=== PATIENT | female | born 2005 | race Caucasian/White ===

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

== ENCOUNTER 2024-01-09 09:39 | Emergency (ER) | payer OTHER, SELFPAY ==
--- NOTE | ~2024-01-09 | XR_ITS ---
EXAMINATION: XR CHEST CLINICAL INFORMATION: Productive cough 2 weeks COMPARISON: Chest radiograph from 09/24/2008 TECHNIQUE: 2 views of the chest were obtained. FINDINGS: Curvilinear radiopacity along the right lung base may reflect atelectasis versus resolving infectious/inflammatory etiology. No pneumothorax. Trachea is midline. Cardiomediastinal silhouette is not enlarged. No large pleural effusion. Osseous structures are intact. Soft tissues are unremarkable. XR/XR chest 2V IMPRESSION: Curvilinear radiopacity along the right lung base may reflect atelectasis versus resolving infectious/inflammatory etiology. Electronically signed by: Elysia Perez MD 01/09/2024 11:55 AM EDT
[2024-01-09 09:48] VITALS: BP 118/70; PULSE 84; RESP 17; TEMP 36.7; O2SAT 97; BMI 34.7
--- NOTE | 2024-01-09 09:50 | ED.GENADULT ---
HPI - General Adult General Chief complaint: Asthma Stated complaint: SOB Time Seen by Provider: 01/09/24 09:49 Source: patient Mode of arrival: ambulatory Limitations: no limitations History of Present Illness ED Provider: migue WYATT narrative: Patient is a 18-year-old female with history of asthma presenting to the emergency department with complaint of cough productive of yellow sputum, shortness of breath as well as right ear pain for the past 2 weeks. She was already seen, tested for viral illnesses which she was never informed of results of, placed on a course of prednisone and given an albuterol inhaler. Reports she is feeling symptoms have improved but complains of ongoing cough as well as ear pain. Has sore throat initially which has since resolved. complaint: cough, ear pain Onset (ago): week(s) Treatments prior to arrival: other Related Data Previous Rx's ?Medication ?Instructions ?Recorded ibuprofen 600 mg tablet 600 mg PO Q8H PRN pain #10 tabs 01/15/22 ibuprofen 600 mg tablet 600 mg PO Q8H PRN pain #20 tabs 10/27/22 amoxicillin 875 mg-potassium 1 tab PO BID #20 tabs 07/20/23 clavulanate 125 mg tablet doxycycline hyclate 100 mg capsule 100 mg PO BID #10 caps 01/09/24 Allergies Allergy/AdvReac Type Severity Reaction Status Date / Time No Known Allergies Allergy Verified 01/09/24 09:50 Review of Systems Review of Systems: As per HPI. Yes all other systems are reviewed and are negative Constitutional: Constitutional: Reports as per HPI [facility] Social History Social History Advance Directives: No Advance Directives Information Provided: Yes Physical Exam ED Vital Signs: Vital Signs - 24 hr 01/09/24 09:48 Temperature 98.0 F Pulse Rate 84 Respiratory Rate 17 Blood Pressure 118/70 Pulse Oximetry 97 Oxygen Delivery Method Room Air BMI result Body Mass Index 34.7 Vital signs have been reviewed and appear to be correct. Blood pressure normal. Heart rate normal. Respiratory rate normal. Temperature normal. Oxygen saturation normal. Const General: cooperative, healthy appearing and no acute distress Orientation/consciousness: oriented to person, oriented to place, oriented to time and patient oriented x3 Limitations: no limitations HENMT Head: Yes normocephalic and Yes atraumatic Ears: external ears normal, right TM abnormal (unable to visualize TM due to cerumen impaction), TM normal on the left, EAC's normal, mastoids normal bilaterally and no periauricular adenopathy General nose exam: Normal external nose present Face and sinus: Yes face symmetric Mouth: oropharynx normal and moist mucous membranes Throat: Yes posterior oropharynx normal and Yes uvula midline Eyes Pupils: Equal, round and reactive pupils present Neck Neck: Yes normal visual inspection and Yes supple Resp Effort & Inspection: normal respiratory effort and able to speak in complete sentences Auscultation: clear to auscultation bilaterally Cardio Rate: regular rate Rhythm: regular rhythm Heart sounds: S1 normal heart sound present and S2 normal heart sound present GI Palpation (GI): Soft to palpation and nontender Auscultation: normoactive bowel sounds General: Yes no CVA tenderness Back/Spine/Pelvis Back: no CVA tenderness Skin General skin exam: elasticity normal and turgor normal Neuro General: oriented to person, oriented to place, oriented to time, patient oriented x3, moves all extremities, no focal motor deficits and CN's II-XI intact bilaterally Cranial nerves: Yes Equal, round and reactive pupils present Cognition (Neuro): normal cognition Extrem General: Yes full ROM, Yes no pedal edema and Yes no calf tenderness Psych Mental Status: mental status grossly normal Affect: normal affect Thought process: Normal thought process present Medical Decision Making Medical Decision Making MDM Narrative: Patient is a 18-year-old female with history of asthma presenting to the emergency department with complaint of cough productive of yellow sputum, shortness of breath as well as right ear pain for the past 2 weeks. On exam patient is awake, A+Ox3, VS WNL, afebrile, normal neurological exam without focal deficits, physical exam findings as above. Given reported symptoms and physical exam findings, initial differential includes viral illness, otitis media, bronchitis, pneumonia, asthma exacerbation. Viral serology negative. Chest x-ray notable for right lung base opacity. My interpretation is in agreement with the radiologist's interpretation. Unable to visualize right TM on exam, however patient complaining of throbbing pain. Will treat patient with course of doxycycline which will cover both her ear as well as likely resolving respiratory infection. Return precautions discussed. Instructed patient to follow up with PCP. Patient verbalized understanding of and agreement with plan. Differential Diagnosis Differential Diagnoses: The differential diagnosis associated with the presentation includes Lab Data [facility] Lab Attestation statement: I reviewed the patient's lab results. As per [facility]. Labs: Lab Results 01/09/24 Range/Units 09:54 Influenza Type A (PCR) NEGATIVE (Negative) Influenza Type B (PCR) NEGATIVE (Negative) RSV RNA Qual (PCR) NEGATIVE (Negative) SARS-CoV-2 RNA (RT-PCR) NEGATIVE (Negative) Independent Interpretation I performed an independent interpretation of an: Plain X-Ray Interpretation: Chest x-ray notable for right lung base opacity. Radiology Impression Discussion of test interpretation with radiology: I have reviewed the radiologist's reading. Radiologist Impression: XR/XR chest 2V IMPRESSION: Curvilinear radiopacity along the right lung base may reflect atelectasis versus resolving infectious/inflammatory etiology. External Record Review External record reviewed: Inpatient record, Office record and Outpatient record Prescription Management I considered prescription management with: Antibiotic Discharge Plan Discharge Clinical Impression: Otitis media, Bronchitis Patient Disposition: Home, Self-Care Instructions: Ear Infection (ED), Acute Bronchitis (ED) Additional Instructions: You were evaluated in the emergency department today for cough and ear pain. Your evaluation suggests that your pain is due to an ear infection and your chest x-ray showed a resolving infection. You are being treated with 1 antibiotic which will cover both infections. Please take your prescribed antibiotics as directed for the full course of the medication. Please follow up with your primary care provider this week. Return to the emergency department if you experience hearing loss, discharge from your ear, headaches, fevers, difficulty breathing, recurrent vomiting, or any other concerning symptoms. Prescriptions: New doxycycline hyclate 100 mg capsule 100 mg PO BID Qty: 10 0RF No Action ibuprofen 600 mg tablet 600 mg PO Q8H PRN (Reason: pain) Qty: 10 0RF ibuprofen 600 mg tablet 600 mg PO Q8H PRN (Reason: pain) Qty: 20 0RF amoxicillin-pot clavulanate 875-125 mg tablet 1 tab PO BID Qty: 20 0RF Print Language: [place]
[2024-01-09 10:48] LABS: Influenza A PCR NEGATIVE (Negative); Influenza B PCR NEGATIVE (Negative); Resp Syncy Virus RNA Qual PCR NEGATIVE (Negative); SARS COV2 PCR INHOUSE NEGATIVE (Negative)
[2024-01-09 12:31] VITALS: BP 118/70; PULSE 84; RESP 17; TEMP 36.7; O2SAT 97
== END 2024-01-09 12:35 | disposition home or self-care (01) ==
PROVIDERS: Registered Nurse Emergency; Emergency Provider Emergency Medicine
DX: J40 Bronchitis, not specified as acute or chronic (principal); H66.91 Otitis media, unspecified, right ear; R05.9 Cough, unspecified; Z03.818 Encounter for observation for suspected exposure to other biological agents ruled out
CPT/HCPCS: 0241U; 71046; 99282; 99283

== ENCOUNTER 2025-01-09 00:57 | Emergency (ER) | payer OTHER, SELFPAY ==
--- NOTE | 2025-01-09 | ECG_ITS ---
Test Reason : CP Blood Pressure : */* mmHG Vent. Rate : 84 BPM Atrial Rate : 84 BPM P-R Int : 138 ms QRS Dur : 76 ms QT Int : 366 ms P-R-T Axes : 43 18 5 degrees QTcB Int : 432 ms Normal sinus rhythm Normal ECG No previous ECGs available Referred By: Generic ED Physician Electronically Signed By: BENNY MARTINEZ MD
--- NOTE | ~2025-01-09 | XR_ITS ---
CLINICAL HISTORY: chest px 1 view chest x-ray Comparison: CR/SR - XR CHEST 2 VIEWS - 01/09/24 11:03 EDT Findings: The lungs are clear. Previously described right basilar curvilinear opacity is not visualized on this single AP view exam. Heart size is normal. No acute fracture. IMPRESSION: 1. No acute findings. Previously described right basilar curvilinear opacity is not visualized on this single AP view exam. This document has been electronically signed by: Cassidy Daniel MD on 01/09/2025 01:50:33
[2025-01-09 01:03] VITALS: PULSE 92; RESP 16; TEMP 36.4; O2SAT 97; BMI 41.6
--- OUTSIDE RECORDS SUMMARY | 2025-01-09 01:11 | XMS_ITS | Clinical Summary ---
Author Organization 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 Active Social History Tobacco Use Types Packs/Day Years Used Date Smoking Tobacco: Never Assessed Education Answer Date Recorded Are you interested in more education? Not on cami e 08/25/2022 Are you concerned about learning? Not on file 08/25/2022 No 08/25/2022 No 08/25/2022 Digital Access Answer Date Recorded No 09/25/2022 No 09/25/2022 Reliable internet access at home? Not on file 09/25/2022 Device with a working camera? Not on file Comments No Sex and Gender Information Value Date Recorded Sex Assigned at Female 09/20/2020 8:34 PM EDT Legal Sex Female 7:32 PM EDT Gender Identity Female 09/20/2020 8:34 PM EDT Sexual Orientation Straight 09/20/2020 8: 34 PM EDT Last Filed Vital Signs Vital Sign Reading Time Taken Comments Blood Pressure 115/76 09/21/2020 12:18 AM EDT Pulse 80 09/21/2020 12:18 AM EDT Temperature 36.5 C (97.7 F) 09/21/2020 12:18 AM EDT Respiratory Rate 14 09/21/2020 12:18 AM EDT Oxygen Saturation 96% 09/21/2020 12:18 AM EDT Inhaled Oxygen Concentration - - Weight 77.8 kg (171 lb 8 oz) 09/20/2020 8:29 PM EDT Height 157.5 cm (5' 2 ) 09/20/2020 8:29 PM EDT Body Mass Index 31.37 09/20/2020 8:29 PM EDT Plan of Treatment Not on file Medical Devices Not on file Insurance [facility] [place] [place] [address] ACO [facility] [facility] [facility] Care Teams Coffee Blender Relationship Specialty Start Date End Date Pcp, Unknown PCP - General 09/20/20 Additional Source Comments The information contained in this document represents components of the legal health record. It is not the complete legal health record.[facility]
--- OUTSIDE RECORDS SUMMARY | 2025-01-09 01:11 | XMS_ITS | Clinical Summary ---
Author Organization [facility] [address] [place] [address] [place] [phone] Phone Care Team Providers Care Aquatics Instructor Name Role Phone Palak Goldman MD Primary Care Provider [phone] Allergies No known active allergies Medications Ventolin HFA 90 mcg/actuation inhaler Inhale 2 puffs by mouth 4 (four) times a day. Active vitamin iron fum-folic acid 27-0.8 mg per tabletIndication s:Encounter for supervision of normal first in first trimester Take 1 tablet by mouth 1 (one) time each day. 90 each 3 09/23/2024 6 Active aspirin 81 mg EC tablet Take 1 tablet (81 mg total) by mouth 1 (one) time each day. 60 tablet 3 09/29/2024 6 Active Active Problems Problem Noted Date Diagnosed Date Carrier of spinal muscular atrophy 10/05/2024 Overview (10/05/2024): Horizon 14 result INCREASED CARRIER RISK for Spinal Muscular Atrophy: Two copies of the SMN1 gene detected .Positive for the g.[id number]>G variant. Based on this individual's reported ethnicity, the individual has a 1 in 140 risk To be a silent (2+0) carrier for SMA. If this individual's partner is a carrier for Spinal Muscular Atrophy, they may be at increased risk to have a child with this condition. Carrier screening for this individual's partner is suggested. Order for partner Patric Sanchez placed in [employer]'s website 10/05/24 Assessment & Plan (11/17/2024 2:34 PM EDT): FOB- no insurance currently. Forms completed and kit provided, can be completed once he has his insurance, Encounter for supervision of normal first in first trimester 09/23/2024 Overview (11/21/2024): 1. [facility] site: [facility]: [address] [facility], [place] [address] ([phone]) 2. Delivery site: [facility] 3. Mobile Mommas: No 4. Dating criteria: LMP - changed based on 09/25/34 u/s (S<D). EDC now 05/04/25 5. Blood type: A-Positive 6. Genetic screening: Date: Result: Panorama: Low risk panorama, XX Horizon: INCREASED CARRIER RISK for Spinal Muscular Atrophy: Two copies of the SMN1 gene detected .Positive for the g.29397M>G variant. Based on this individual's reported ethnicity, the individual has a 1 in 140 risk To be a silent (2+0) carrier for SMA. If this individual's partner is a carrier for Spinal Muscular Atrophy, they may be at increased risk to have a child with this condition. Carrier screening for this individual's partner is suggested. Nuchal: Scheduled Survey: MSAFP: screen negative 6. GBS: Date: 7. FOB name: Patric Rosaisiah 8. Plans A. Epidural or other pain management - no B. Labor support identified - Patric Pereira C. Tdap - Date: Flu - Date: D. Breast or Bottle feed: E. Baby's name - F. Circumcision - no 9. Hospital Course: Maternal obesity, antepartum 09/23/2024 Overview (12/22/2024): HgbA1C and 1 hour GTT at initial labs ASA 162mg at 12 weeks until delivery Detailed anatomy ultrasound Repeat GTT 24-28 weeks if early is normal Pre-preg BMI 35-39.9: NST weekly at 37 weeks Pre-preg BMI >40: NST weekly at 34 weeks Pre-preg BMI >45: NST weekly at 32 weeks Growth US at 32 and 36 weeks for BMI >40 BMI of 50 by 28wks transfer to [facility] DVT prophylaxis- Lovenox if CS and BMI >35 Assessment & Plan (11/17/2024 2:35 PM EDT): Taking pnv and baby asa as prescribed. History of asthma 09/23/2024 Estimated Date of Delivery Comme nts Yes 05/04/2025 Based on Ultraso und Encounters Date Type Department Care Team Description 12/18/2024 8:00 AM EDT Ancillary Procedure Maternal Medicine - [place] [address] [place] [address] Encounter for anatomic survey; Obesity affecting in second trimester; Other obesity due to excess calories affecting in third trimester; Encounter for screening for malformation; Other obesity due to excess calories affecting in second trimester; Encounter for screening for cervical length 12/17/2024 10:15 AM EDT Routine [facility] [place] [address] [facility] [place] [address] Alize Bowen CNM Second trimester (Primary Dx); Maternal obesity, antepartum; 20 weeks gestation of 11/17/2024 2:00 PM EDT Routine Obst[facility]s [facility]cology [facility] [address] [facility] [place] [address] Alize Bowen CNM 16 weeks gestation of (Primary Dx); Second trimester ; Carrier of spinal muscular atrophy; Maternal obesity, antepartum 10/23/2024 10:00 AM EDT Ancillary Procedure Maternal Medicine - [address] [address] Encounter for screening for nuchal translucency; Encounter for screening for malformations; Encounter for supervision of normal first in first trimester; Obesity affecting in first trimester; Other obesity due to excess calories affecting in first trimester from Last 3 Months Surgical History Surgery Date Site/Laterality Comments TONSILLECTOMY at 7 yo ADENOIDECTOMY 04/29/2012 - 04/28/2013 TYMPANOSTOMY TUBE PLACEMENT 04/29/2024 - 04/28/2025 Simi collins Medical History Medical History Date Comments Asthma Family History Medical History Relation Name Comments Asthma Father Diabetes type II Half-Brother 1 Joaquin No Known Problems Half-Brother 2 Jami No Known Problems Half-Brother 3 Reymundo No Known Problems Half-Sister 1 Alexandru No Known Problems Half-Sister 2 Mingo No Known Problems Half-Sister 3 Charbel No Known Problems Half-Sister 4 Gayle Asthma Half-Sister 5 Navea Kidney disease Maternal Grandfather No Known Problems Maternal Grandmother No Known Problems Mother Arthritis Paternal Grandfather Arthritis Paternal Grandmother Relation Name Status Comments Father Alive Half-Brother 1 Joaquin Alive Half-Brother 2 Jami Alive Half-Brother 3 Reymundo Alive Half-Sister 1 Alexandru Alive Half-Sister 2 Mingo Alive Half-Sister 3 Mayura Alive Half-Sister 4 Gayle Alive Half-Sister 5 Navea Alive Maternal Grandfather Maternal Grandmother Alive Mother Alive Paternal Grandfather Alive Paternal Grandmother Alive Social History Tobacco Use Types Packs/Day Years Used Date Smoking Tobacco: Never Smokeless Tobacco: Never Alcohol Use Standard Drinks/Week Comments Never 0 (1 standard drink = 0.6 oz pur e alcohol) Estimated Date of Delivery Comme nts Yes 05/04/2025 Based on Ultraso und Sex and Gender Information Value Date Recorded Sex Assigned at Not on file Legal Sex Female 10:47 AM EDT Gender Identity Not on file Sexual Orientation Not on file Obstetrics History Para Term AB IAB SAB Ectopic Multiple Livin g Live Births 1 0 0 0 0 0 0 0 Date Outcome GA Total Labor Labor/2nd/3rd Weight Sex Type Anes PTL Doris A1 A5 Name Clin Current Summary Episode Dates Number of Fetuses Estimated Date of Delivery 09/23/2024 - Present (01/09/2025) 05/04/2025 (set by Vanessa Vallejo RN on 09/25/2024 based on Ultrasound on 09/25/2024) Dating Summary Based On ISAURA GA Diff Last Menstrual Period on 06/28/2024 (Exact Date) 04/04/2025 +4w2d Ultrasound on 09/25/2024 05/04/2025 Working GA:8w3d Overview and Plan Delivery Plans Post-Delivery Plans Planned delivery method:Vaginal Feeding intentions:Exclusive Planned anesthesia:None Circumcision req uested:No Acceptable blood products:All Planned bi rth control:None Vitals Pregravid Weight Height TWG (As of 01/09/2025) Pregrav id BMI 98 kg (216 lb) 1.575 m (62 ) 1.452 kg (3 lb 3.2 oz) 39 .50 Notes Progress Notes - Routine Pre boby - 12/17/2024 - GA:20w2d 12/17/2024 - 20w2d - Alize Bowen CNM OB Visit: Vitals BP: 116/70 Weight: 99.4 kg Assessment Heart Rate: 150 Fundal Height (cm): 20 cm Movement: Present Vaginal Drainage Leaking Fluid: No 19 y.o. old female at 20w2d. Here with FOB today. Doing well. + FM. No LOF/VB/cramping. Her only new concern is intermittent low back pain , has been doing stretching to help relieve discomfort. FAS ted on tomorrow. Otherwise c/b obesity , taking pnv and asa. Her BP is reviewed and is Normal. Aneuploidy screening reviewed; it is Normal. MSAFP up to date. Negative. She does not require a urine drug screen. Pt is counseled on normal second trimester changes, comfort measures, including reasons to call triage. Problem List reviewed and updated. RTO 4 weeks or prn ;. Alize Bowen CNM on 12/17/2024 at 10:54 AM EDT Progress Notes - Routine Pre boby - 11/17/2024 - GA:16w0d 11/17/2024 - w0d - Vanessa Vallejo RN Order form and test kit for partner Horizon testing given to pt/partner. 11/17/2024 - w0d - Alize Bowen CNM OB Visit: Vitals BP: 110/70 Weight: 97.3 kg (214 lb 9.6 oz) Assessment Heart Rate: 145 Fundal Height (cm): 16 cm Vaginal Drainage Leaking Fluid: No 19 y.o. old female at 16w0d. Doing well. No flutterin FM. No LOF/VB/cramping. Her only new concern is none. Otherwise healthy . Her BP is reviewed and is Normal. Aneuploidy screening reviewed; it is Normal. MSAFP ordered. She does not require a urine drug screen. Signs and symptoms of labor reviewed including reasons to call triage. Problem List reviewed and updated. RTO 4 weeks or sooner prn . 16 weeks gestation of (Primary) - Alpha fetoprotein, maternal; Future Second trimester - Alpha fetoprotein, maternal; Future Carrier of spinal muscular atrophy Assessment & Plan: FOB- no insurance currently. Forms completed and kit provided, can be completed once he has his insurance, Maternal obesity, antepartum Assessment & Plan: Taking pnv and baby asa as prescribed. Alize Bowen CNM on 11/17/2024 at 2:35 PM EDT Progress Notes - Initial Pre boby - 09/29/2024 - GA:9w0d 09/29/2024 - 9w0d - Leilani Ritter CNM Subjective Agusto Amaro is a 19 y.o. at 9w0d with a working estimated date of delivery of 05/04/2025, by Ultrasound who presents for an initial visit. This is unplanned.they have been together 4 years, and they are happy about it. HPI OB History Para Term AB Living 1 0 0 0 0 0 SAB IAB Ectopic Multiple Live Births 0 0 0 0 0 # Outcome Date GA Lbr Emir/2nd Weight Sex Type Anes PTL Lv 1 Current Gynecology History Past Medical History: Diagnosis Date Asthma Past Surgical History: Procedure Laterality Date ADENOIDECTOMY 2013 TONSILLECTOMY at 7 yo TYMPANOSTOMY TUBE PLACEMENT Right 2024 Family History Problem Relation Name Age of Onset No Known Problems Mother Asthma Father No Known Problems Maternal Grandmother Kidney disease Maternal Grandfather Arthritis Paternal Grandmother Arthritis Paternal Grandfather Diabetes type II Half-Brother Joaquin Kline No Known Problems Half-Brother Jami No Known Problems Half-Brother Reymundo No Known Problems Half-Sister Alexandru No Known Problems Half-Sister Mingo No Known Problems Half-Sister Charbel No Known Problems Half-Sister Gayle Asthma Half-Sister Joel Social History Socioeconomic History Marital status: Single Spouse name: Not on file Number of children: Not on file Years of education: Not on file Highest education level: Not on file Occupational History Not on file Tobacco Use Smoking status: Never Smokeless tobacco: Never Vaping Use Vaping status: Never Used Substance and Sexual Activity Alcohol use: Never Drug use: Never Sexual activity: Yes Partners: Male Comment: Patric 4yrs haydenther Other Topics Concern Not on file Social History Narrative Planned :Yes FOB name/age/phone #: Patric Pereira, 05/22/2004 ph [phone] [email or web address] Lives with: Patric Other Children: Support system in place:No Pets:Yes , 2 cats and 2 dogs, Patric is changing the litter 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 60 tablet 3 vitamin iron fum-folic acid 27-0.8 mg per tablet Take 1 tablet by mouth 1 (one) time each day. 90 each 3 Ventolin HFA 90 mcg/actuation inhaler Inhale 2 puffs by mouth 4 (four) times a day. No current facility-administered medications for this visit. No Known Allergies The following portions of the patient's chart were reviewed in this encounter and updated as appropriate: Allergies Meds Review of Systems Objective Physical Exam Weight: 97.5 kg (215 lb) Expected Total Weight Gain: 5 kg (11 lb)-9 kg (19 lb) Pregravid BMI: 39.50 BP: 104/72 HEENT: reactive Thyroid: normal Lymphatic: normal Neurological : A&Ox3 Skin: clear Cardiovascular: regular rhythm Pulmonary: CTA Breast: flat nipples Abdominal: gravid, obesity Musculoskeletal: normal Vulva findings: Vagina findings: Cervix findings: Uterus size weeks: 9w Adnexa findings: Rectum findings: Ischial spines findings: Sacrum shape: Subpubic arch width: Diagonal conjugate assessed: Pelvic type: Assessment/Plan 9 weeks gestation of (Primary) Encounter for supervision of normal first in first trimester - Chlamydia trachomatis and Neisseria gonorrhoeae molecular study Other orders - aspirin 81 mg EC tablet; Take 1 tablet (81 mg total) by mouth 1 (one) time each day. Dispense: 60 tablet; Refill: 3 Progress Notes - Ancillary P rocedure - 09/25/2024 - GA:8w3d 09/25/2024 - 8w3d - Vanessa Vallejo RN Dating changed based on ultrasound today. Size less than dates. EDC now 05/04/2025. Progress Notes - Clinical Diaz pport - 09/23/2024 - GA:8w1d 09/23/2024 - 8w1d - Honey Galvan RN Agusto Amaro is a 19 y.o. old female at 12w3d. This is Planned. The patient feels happy about the . The FOB is supportive and happy. Patient's last menstrual period was Patient's last menstrual period was 06/28/2024 (exact date). (exact date)., which would make her currently 12w3d with an Estimated Date of Delivery: None noted.. She is certain of her date. 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 No Hypertension? No Heart disease, Mitral valve Prolapse, or Rheumatic fever? No An Autoimmune disease such as Lupus or Rheumatoid Arthritis? No Epilepsy, Seizures, or Spells? No Migraine Headaches? Yes, with aura Stroke or loss of function or sensation? No Additional Questions: Have you ever been treated for anxiety and/or depression? No Are you having problems with crying spells or loss of self-esteem? No Have you ever required psychiatric care? No Have you ever had hepatitis, liver disease or jaundice? No Have you ever been treated for blood clots in your veins, deep venous thrombosis, inflammation in the veins, thrombosis, phlebitis, pulmonary embolism or varicosities? No Have you had excessive bleeding after surgery or dental work? No Do you bleed more than other women after a cut or scratch? No Do you have a history of anemia? No Have you ever had Thyroid problems or taken Thyroid medications? No Do you have any other Endocrine Problems (ie. PCOS)? No Have you ever been in a major accident or suffered serious trauma? No Within the last year, has anyone hit, slapped, kicked or otherwise hurt you? No In the last year, has anyone forced you to have sex when you didn't want to? No Do you feel safe at home? Yes Have you ever received a blood transfusion? No Would you refuse a blood transfusion if a doctor judged to be medically necessary? No Would you rather than receive a blood transfusion? No If you answered yes to the above questions, is this for episcopal reasons? N/A Do you know what your blood type is or if you are Rh Negative? unknown Have you ever had abnormal antibodies in your blood? unknown Have you ever had asthma? Yes, last time use at beginning of august Have you every had Tuberculosis? No Have you ever had any breast problems? No Have you ever breast fed? N/A Have you ever had any gynecological surgical procedures such as cervical conization, LEEP procedure, Laser treatment, cryosurgery of the cervix or dilation and curettage, etc? No Have you had any other surgical procedures? Yes, tonsillectomy, adenoidectomy 2012 and ear tubes 05/2024 Have you ever been hospitalized overnight for a non-surgical reason excluding normal delivery? Yes for sleep study 2012 Have you ever had anesthesia complications? No Have you ever had an abnormal pap smear? No Do you have a history of abnormalties of the uterus? No Did your mother take FAIZAN or any other hormones when she was with you? No Did it take more than one year to become ? yes Have you ever been evaluated or treated for infertility? No Is there a history of medical problems in your family which you feel might adversely affect your health or ? No Do you have any other problems we have not asked you about which you feel may be important for us to know for this ? No Do you currently have any of the following symptoms since your last menstrual period: Abdominal pain, blood in the stool or urine, chest pain, shortness of breath, coughing or vomiting up blood, your heart racing or skipping beats, nausea and/or vomiting, pain on urination, or vaginal discharge or vaginal bleeding? Yes, nausea in AM , Spotting beginning of July, hd intercourse before that Genetic Screening/Teratology Counseling- Includes patient, baby's father, or anyone in either family with: Patient's age 35 years or older as of estimated date of delivery No Thalassemia (Turkmen, Maori, Mediterranean, or background): MCV less than 80 No Neural tube defect (Meningomyelocele, Spina bifida, or Anencephaly) No Congenital heart defect No Down syndrome No Sohan-Sachs (Ashkenazi Zoroastrian, Cajun, Bengali Merrick) No Celio disease (Ashkenazi Zoroastrian) No Familial dysautonomia (Ashkenazi Zoroastrian) No Sickle cell disease or trait () No Hemophilia or other blood disorders No Muscular dystrophy No Cystic fibrosis No Meeker's chorea No Intellectual disability and/or autism No If yes, was the person tested for Fragile X? No Other inherited genetic or chromosomal disorder No Maternal metabolic disorder (eg. Type 1 diabetes, PKU) No Patient or baby's father had child with defects not listed above No Recurrent loss, or a stillbirth No Medications (including supplements, vitamins, herbs, or OTC drugs)/illicit/recreational drugs/alcohol since last menstrual period No If yes, agent(s) and strength/dosage: Any other No OB Infection History: Do you object to being tested for Hepatitis B? No Do you object to being tested for HIV? No Do you feel that you are at high risk for coming contact with the AIDS virus? No Have you ever been treated for tuberculosis? No Have you ever received the BCG vaccine? No Have you ever had a positive skin test for Tuberculosis? No Do you live with someone who has Tuberculosis? No Have you ever been exposed to Tuberculosis? No Do you have Genital Herpes? No Does your partner have Genital Herpes? No Have you had a rash or viral illness since your last period? No Have you ever had Gonorrhea, Chlamydia, Syphilis, Venereal Warts, Trichomoniasis, Pelvic Inflammatory Disease (PID) or any other sexually transmitted disease? No Do you know if you are a Group B Streptococcus Carrier? unknown Did you have the Chicken Pox/Varicella? no Were you vaccinated against Chicken Pox/Varicella? yes Have you had any other infectious diseases? No Agusto Amaro has been instructed on the following: random urine drug screening RN workup and an initial urine drug screen has been ordered., She has been counseled regarding avoiding hazards, litter boxes, smoking, drug and alcohol use during Agusto Amaro has also been informed of the chamber magistrate provider recommendation for first trimester nuchal lucency testing to be performed during her . Agusto Amaro has also been made aware of the time sensitive nature for this testing to be completed. . The patient now has a gestational age of 12w3d. The patient would be due for this testing prior to 14 weeks gestation which would be on 09/25/24 at 3pm Ethnicity Based Genetic Testing has been reviewed and the [employer] information sheet has been provided to the patient in their After Visit Summary. The patient was also advised that genetic testing may not be covered by all insurances. The patients states that they understand this information. The patient states that she has not had the genetic screening for Horizon 14 done in the past during a previous . Results were N/A. The patient has agreed that she does want genetic testing for Horizon 14 The following Labs have been ordered: Obstetric Panel, HgA1c, Early Glucose Screen, HIV with verbal Consent, Hepatitis C, Varicella titer, Urine Culture, UDS, Panorama with gender, and Horizon 14 panel She is aware that her insurance may or may not cover Panorama and/or Horizon 14 test and discussed green[facility] only valdez for test(s) - info given today in her after visit summary . She would like to proceed with testing. For Horizon Carrier Screening, if patient has [facility]: Not Applicable Electronically signed by: Honey Galvan RN 09/23/24 2:33 PM EDT Last Filed Vital Signs Vital Sign Reading Time Taken Comments Blood Pressure 116/70 12/17/2024 10:25 AM EDT Pulse 74 12/17/2024 10:25 AM EDT Temperature - - Respiratory Rate 16 12/17/2024 10:25 AM EDT Oxygen Saturation - - Inhaled Oxygen Concentration - - Weight 99.4 kg (219 lb 3.2 oz) 12/17/2024 10:25 AM EDT Height 157.5 cm (5' 2 ) 09/23/2024 1:38 PM EDT Body Mass Index 40.09 09/23/2024 1:38 PM EDT Plan of Treatment Upcoming Encounters Date Type Department Care Team (Late st Contact Info) Description 01/12/2025 11:00 AM EDT Ancillary Procedure Maternal Medicine - [place] [address] [place] [address] 01/14/2025 8:45 AM EDT Routine Obstetrics [facility]cology - [facility] [address] [place], [place] [phone] [place], [address] [place], [place] 02/11/2025 9:00 AM EDT Routine Obstetrics and [facility]necology - [facility] [address] [place], [place] [phone] Alize Bowen, JESS [address] [place] [address] 03/09/2025 8:30 AM EST Routine Obstetrics and [facility]necology - [facility] [address] [place], [place] [phone] Russell Ying, DO [address] [place], [place] Health Maintenance Due Date Last Done Comments Meningococcal B Vaccine (1 o f 2 - Standard) 2020 HPV Vaccines (2 - 3-dose series) 02/28/2021 01/31/2021 DTaP,Tdap,and Td Vaccines (1 - Tdap) 2023 Hepatitis B Vaccines (1 of 3 - 19+ 3-dose series) 2023 Depression Screening 04/29/2024 Annual Well Child Visit (3-2 1 years old) 09/09/2024 Cholesterol Screening (Lipid Panel) 09/09/2024 Social Influencers of Health Screening 09/09/2024 COVID-19 Vaccine (4 - 2024-2 6 season) 2024 05/24/2021, 11/21/2020, 10/31/2020 Influenza Vaccine (#1) 2024 05/11/2024 Gonorrhea/Chlamydia Screening 09/29/2025 09/29/2024 Meningococcal ACWY Vaccine Completed 01/31/2021 HIV Screening Completed 09/23/2024 Hepatitis C Screening Completed 09/23/2024 HIB Vaccines Aged Out No longer eligi ble based on patient's age to complete this topic Hepatitis A Vaccines Aged Out No long er eligible based on patient's age to complete this topic IPV Vaccines Aged Out No longer eligi ble based on patient's age to complete this topic Pneumococcal Vaccine: Pediatrics (0 to 5 Years) and At-Risk Patients (6 to 49 Years) Aged Out No longer eligible b ased on patient's age to complete this topic RSV Immunization Patients Under 20 months Aged Out No longer eligible b ased on patient's age to complete this topic Procedures Procedure Name Priority Date/Time Associated Diagnosis Comments US OB TRANSVAGINAL Routine 12/18/2024 9: 01 AM EDT Encounter for screening for cervical length Other obesity due to excess calories affecting in second trimester Encounter for anatomic survey Obesity affecting in second trimester Encounter for screening for malformation US OB DETAILED SINGLE OR FIRST GESTATION Routine 12/18/2024 9:01 AM EDT Other obesity due to excess calories affecting in second trimester Encounter for anatomic survey Obesity affecting in second trimester Encounter for screening for malformation ALPHA FETOPROTEIN, MATERNAL Routine 11/17/2024 2:38 PM EDT 16 weeks gestation of Second trimester US OB LESS 14 WKS SINGLE OR FIRST GESTATION Routine 10/23/2024 9:55 AM EDT Encounter for screening for nuchal translucency Encounter for screening for malformations Encounter for supervision of normal first in first trimester Obesity affecting in first trimester Other obesity due to excess calories affecting in first trimester US OB LESS 14 WKS NUCHAL MEASUREMENT Routine 10/23/2024 9:55 AM EDT Encounter for screening for nuchal translucency Encounter for screening for malformations Encounter for supervision of normal first in first trimester Obesity affecting in first trimester Other obesity due to excess calories affecting in first trimester CHLAMYDIA TRACHOMATIS AND NEISSERIA GONORRHOEAE PCR Routine 09/29/2024 2:10 PM EDT Encounter for supervision of normal first in first trimester HEPATITIS C ANTIBODY Routine 09/23/2024 4:09 PM EDT Encounter for screening of mother Encounter for supervision of normal first in first trimester HIV 1, 2 ANTIBODY, P24 ANTIGEN WITH REFLEX TO DIFFERENTIATION Routine 09/23/2024 4:09 PM EDT Encounter for screening of mother Encounter for supervision of normal first in first trimester from Last 3 Months or Most Recently Relevant to Health Maintenance Results * US OB Transvaginal (12/18/2024 9:01 AM EDT) Anatomical Region Laterality Modality Body Ultrasound 12/18/2024 7:57 AM EDT Narrative 12/22/2024 10:49 AM EDT OBSTETRICS REPORT (Signed Final 12/22/2024 10:49 am) PATIENT INFO: ID #: [id number] : [birth year] (19 yrs)(F) Name: AGUSTO Visit Date: 12/18/2024 07:57 am FAVIAN PERFORMED BY: Attending: Janay Mora MD Performed By: Anuradha Casanova RDNC Referred By: Ying Wells DO Ref. Address: [address] [place] [id number] Location: [facility] SERVICE(S) PROVIDED: US Level II complete (Targeted OB) 11045 OB Transvaginal ultrasound 40101 INDICATIONS: Obesity complicating , 2nd O99.212 trimester Morbid obesity E66.01 Encounter for screening for Z36.3 malformations Encounter for screening for Z36.86 cervical length 20 weeks gestation of Z3A.20 TECHNIQUE/SCAN QUALITY: Technique: Transabdominal & Transvaginal Scan Technically difficult due to position and Quality: maternal habitus. OB HISTORY: : 1 Term: 0 VITAL SIGNS: Weight (lb) Height BMI 220 5'2 40.23 EVALUATION: Number Of Fetuses: 1 Heart Rate(bpm): 140 Cardiac Activity: Observed Appears regular Presentation: Breech Placenta Location: Anterior Appearance: Grade 1 Relation to CVX: No previa Cord Insertion: Normal appearance Amniotic Fluid YANIV FV: Within Normal Limits Largest Pocket(cm) 4.43 Comment: A >2 x 2 cm pocket of fluid is noted. BIOMETRY: BPD: 48.5 mm G.Age: 20w 5d 60 % HC: 182.6 mm G.Age: 20w 5d 52 % AC: 150 mm G.Age: 20w 2d 38 % FL: 31.3 mm G.Age: 19w 5d 19 % HUM: 29.1 mm G.Age: 19w 3d 25 % CER: 21.3 mm G.Age: 20w 2d 47 % NFT: 3.47 mm NB: 5.48 mm 8 % 0.99 MoM LV: 6.8 mm CM: 6.2 mm OOD: 31.7 mm G.Age: 19w 2d 38 % CI: 71.53 % 70 - 86 FL/HC: 17.1 % 16.8 - 19.8 HC/AC: 1.22 1.09 - 1.39 FL/BPD: 64.5 % FL/AC: 20.9 % 20 - 24 Est. FW: 331 gm 0 lb 12 oz 27 % GESTATIONAL AGE: LMP: 24w 5d Date: 06/28/24 ISAURA: 04/04/25 U/S Today: 20w 3d ISARUA: 05/04/25 Best: 20w 3d Det. By: U/Rocky Ledesma ISAURA: 05/04/25 (09/25/24) DETAILED ANATOMY: Head / Neck Cranial Vault: Normal appearance Cavum Septi Pellucidi: Normal appearance Parenchyma: Normal appearance R. Lat. Ventricle: Normal appearance L. Lat. Ventricle: Normal appearance Corpus Callosum: Suboptimal views Midline Falx: Normal appearance R. Choroid Plexus: Normal appearance L. Choroid Plexus.: Normal appearance Cerebellum: Normal appearance CCisterna Magna: Normal appearance Nuchal Fold: Normal appearance Neck: Normal appearance Face Face Profile: Normal appearance Nasal Bone: Normal appearance Coronal Face: Normal appearance Lips: Suboptimal views Nose: Normal appearance Lenses: Normal appearance Orbits: Normal appearance Palate: Normal appearance Heart Cardiac Activity: Normal appearance Cardiac Rhythm: Normal appearance 4 Chamber View: Suboptimal views R. Outflow Tract: Normal appearance L. Outflow Tract: Suboptimal views Interventr. Septum: Suboptimal views 3 Vessel View: Normal appearance 3V Trachea View: Normal appearance Cardiac Situs: Normal appearance Aortic Arch: Normal appearance SVC: Normal appearance IVC: Normal appearance Ductal Arch: Suboptimal views Crossing G. Ves.: Normal appearance Comment: The cardiac axis is 50.83 degrees Thorax Lungs: Normal appearance Cardiac Killdeer: Normal appearance Diaphragm: Normal appearance Thoracic Contour: Normal appearance Abdomen Situs: Normal appearance Stomach: Normal appearance Bowel: Normal appearance Liver: Normal appearance Abdominal Wall: Suboptimal views Urinary Bladder: Normal appearance R. Kidney: Normal appearance L. Kidney: Normal appearance R. Renal Artery: Normal appearance L. Renal Artery: Normal appearance Umbilical Cord: Normal Appearance UC Vessel Num.: Normal 3VC Cord Insertion: Suboptimal views Spine Cervical: Normal appearance Thoracic: Normal appearance Lumbar: Normal appearance Sacral: Normal appearance Shape / Curvature: Normal appearance Over. Soft Tissue: Normal appearance Vertebral Body: Normal appearance Extremities R. Humerus: Normal appearance L. Humerus: Normal appearance R. Forearm: Normal appearance L. Forearm: Normal appearance R. Hand: Normal appearance L. Hand: Normal appearance R. Femur: Normal appearance L. Femur: Normal appearance R. Lower Leg: Normal appearance L. Lower Leg: Normal appearance R. Foot: Normal appearance L. Foot: Normal appearance Other Genitalia: Normal appearance CERVIX UTERUS ADNEXA: Cervix Length: 3.6 cm. Within Normal Limits Right Ovary Size(cm) 2.4 x 1.58 x 1.18 Vol(ml): 2.34 Normal in size and appearance. It is found between the uterus and the pelvic sidewall. Left Ovary Size(cm) 2.83 x 1.94 x 2.02 Vol(ml): 5.81 Normal in size and appearance. It is found between the uterus and the pelvic sidewall. Cul De Sac There is no free fluid in the cul de sac. Adnexa Both adnexae appear unremarkable. COMMENTS: Ms. Amaro is being seen for a detailed ultrasound for a BMI of 40. - Her medical history is significant for asthma and obesity. - This is her first . She takes low-dose aspirin daily. - She had cell free DNA screening performed. Results were low-risk for all conditions assessed. Ultrasound findings: The biometry and anatomical survey are appropriate for the gestational age. The views of LVOT, ductal arch, 4 chamber, abdominal cord insertion, and nose/lips appear suboptimal. The detailed ultrasound could not be completed. - The cervix was assessed for risk of and placental location with vaginal ultrasound. The cervix is long and closed without funneling or dynamic changes. The placenta is anterior and is not low lying or a previa. Plan: Ms. Amaro is scheduled to return in 3 weeks to complete the detailed ultrasound. - Follow up growth at 32 weeks is recommended due to a BMI >40. Janay Mora MD Electronically Signed Final Report 12/22/2024 10:49 am Procedure Note Janay Mora MD - 12/22/2024 OBSTETRICS REPORT (Signed Final 12/22/2024 10:49 am) PATIENT INFO: ID #: [id number] : [birth year] (19 yrs)(F) Name: AGUSTO Visit Date: 12/18/2024 07:57 am FAVIAN PERFORMED BY: Attending: Janay Mora MD Performed By: Anuradha Casanova [facility] Referred By: Ying Wells DO Ref. Address: [address] [place] [address] Location: [facility]) SERVICE(S) PROVIDED: US Level II complete (Targeted OB) 98101 OB Transvaginal ultrasound 15833 INDICATIONS: Obesity complicating , 2nd O99.212 trimester Morbid obesity E66.01 Encounter for screening for Z36.3 malformations Encounter for screening for Z36.86 cervical length 20 weeks gestation of Z3A.20 TECHNIQUE/SCAN QUALITY: Technique: Transabdominal & Transvaginal Scan Technically difficult due to position and Quality: maternal habitus. OB HISTORY: : 1 Term: 0 VITAL SIGNS: Weight (lb) Height BMI 220 5'2 40.23 EVALUATION: Number Of Fetuses: 1 Heart Rate(bpm): 140 Cardiac Activity: Observed Appears regular Presentation: Breech Placenta Location: Anterior Appearance: Grade 1 Relation to CVX: No previa Cord Insertion: Normal appearance Amniotic Fluid YANIV FV: Within Normal Limits Largest Pocket(cm) 4.43 Comment: A >2 x 2 cm pocket of fluid is noted. BIOMETRY: BPD: 48.5 mm G.Age: 20w 5d 60 % HC: 182.6 mm G.Age: 20w 5d 52 % AC: 150 mm G.Age: 20w 2d 38 % FL: 31.3 mm G.Age: 19w 5d 19 % HUM: 29.1 mm G.Age: 19w 3d 25 % CER: 21.3 mm G.Age: 20w 2d 47 % NFT: 3.47 mm NB: 5.48 mm 8 % 0.99 MoM LV: 6.8 mm CM: 6.2 mm OOD: 31.7 mm G.Age: 19w 2d 38 % CI: 71.53 % 70 - 86 FL/HC: 17.1 % 16.8 - 19.8 HC/AC: 1.22 1.09 - 1.39 FL/BPD: 64.5 % FL/AC: 20.9 % 20 - 24 Est. FW: 331 gm 0 lb 12 oz 27 % GESTATIONAL AGE: LMP: 24w 5d Date: 06/28/24 ISAURA: 04/04/25 U/S Today: 20w 3d ISAURA: 05/04/25 Best: 20w 3d Det. By: U/S C R L ISAURA: 05/04/25 (09/25/24) DETAILED ANATOMY: Head / Neck Cranial Vault: Normal appearance Cavum Septi Pellucidi: Normal appearance Parenchyma: Normal appearance R. Lat. Ventricle: Normal appearance L. Lat. Ventricle: Normal appearance Corpus Callosum: Suboptimal views Midline Falx: Normal appearance R. Choroid Plexus: Normal appearance L. Choroid Plexus.: Normal appearance Cerebellum: Normal appearance CCisterna Magna: Normal appearance Nuchal Fold: Normal appearance Neck: Normal appearance Face Face Profile: Normal appearance Nasal Bone: Normal appearance Coronal Face: Normal appearance Lips: Suboptimal views Nose: Normal appearance Lenses: Normal appearance Orbits: Normal appearance Palate: Normal appearance Heart Cardiac Activity: Normal appearance Cardiac Rhythm: Normal appearance 4 Chamber View: Suboptimal views R. Outflow Tract: Normal appearance L. Outflow Tract: Suboptimal views Interventr. Septum: Suboptimal views 3 Vessel View: Normal appearance 3V Trachea View: Normal appearance Cardiac Situs: Normal appearance Aortic Arch: Normal appearance SVC: Normal appearance IVC: Normal appearance Ductal Arch: Suboptimal views Crossing G. Ves.: Normal appearance Comment: The cardiac axis is 50.83 degrees Thorax Lungs: Normal appearance Cardiac Killdeer: Normal appearance Diaphragm: Normal appearance Thoracic Contour: Normal appearance Abdomen Situs: Normal appearance Stomach: Normal appearance Bowel: Normal appearance Liver: Normal appearance Abdominal Wall: Suboptimal views Urinary Bladder: Normal appearance R. Kidney: Normal appearance L. Kidney: Normal appearance R. Renal Artery: Normal appearance L. Renal Artery: Normal appearance Umbilical Cord: Normal Appearance UC Vessel Num.: Normal 3VC Cord Insertion: Suboptimal views Spine Cervical: Normal appearance Thoracic: Normal appearance Lumbar: Normal appearance Sacral: Normal appearance Shape / Curvature: Normal appearance Over. Soft Tissue: Normal appearance Vertebral Body: Normal appearance Extremities R. Humerus: Normal appearance L. Humerus: Normal appearance R. Forearm: Normal appearance L. Forearm: Normal appearance R. Hand: Normal appearance L. Hand: Normal appearance R. Femur: Normal appearance L. Femur: Normal appearance R. Lower Leg: Normal appearance L. Lower Leg: Normal appearance R. Foot: Normal appearance L. Foot: Normal appearance Other Genitalia: Normal appearance CERVIX UTERUS ADNEXA: Cervix Length: 3.6 cm. Within Normal Limits Right Ovary Size(cm) 2.4 x 1.58 x 1.18 Vol(ml): 2.34 Normal in size and appearance. It is found between the uterus and the pelvic sidewall. Left Ovary Size(cm) 2.83 x 1.94 x 2.02 Vol(ml): 5.81 Normal in size and appearance. It is found between the uterus and the pelvic sidewall. Cul De Sac There is no free fluid in the cul de sac. Adnexa Both adnexae appear unremarkable. COMMENTS: Ms. Amaro is being seen for a detailed ultrasound for a BMI of 40. - Her medical history is significant for asthma and obesity. - This is her first . She takes low-dose aspirin daily. - She had cell free DNA screening performed. Results were low-risk for all conditions assessed. Ultrasound findings: The biometry and anatomical survey are appropriate for the gestational age. The views of LVOT, ductal arch, 4 chamber, abdominal cord insertion, and nose/lips appear suboptimal. The detailed ultrasound could not be completed. - The cervix was assessed for risk of and placental location with vaginal ultrasound. The cervix is long and closed without funneling or dynamic changes. The placenta is anterior and is not low lying or a previa. Plan: Ms. Amaro is scheduled to return in 3 weeks to complete the detailed ultrasound. - Follow up growth at 32 weeks is recommended due to a BMI >40. Janay Mora MD Electronically Signed Final Report 12/22/2024 10:49 am us Ying Wells DO IMG OB US PROCEDURES Final Re sult * US OB Detailed Single or First Gestation (12/18/2024 9:01 AM EDT) Anatomical Region Laterality Modality Body Ultrasound 12/18/2024 7:57 AM EDT Narrative 12/22/2024 10:49 AM EDT OBSTETRICS REPORT (Signed Final 12/22/2024 10:49 am) PATIENT INFO: ID #: [id number] : [birth year] (19 yrs)(F) Name: AGUSTO Visit Date: 12/18/2024 07:57 am FAVIAN PERFORMED BY: Attending: Janay Mora MD Performed By: Anuradha Casanova RDMS Referred By: Ying Wells DO Ref. Address: [address] [place] [address] Location: [facility]) SERVICE(S) PROVIDED: US Level II complete (Targeted OB) 62182 OB Transvaginal ultrasound 10312 INDICATIONS: Obesity complicating , 2nd O99.212 trimester Morbid obesity E66.01 Encounter for screening for Z36.3 malformations Encounter for screening for Z36.86 cervical length 20 weeks gestation of Z3A.20 TECHNIQUE/SCAN QUALITY: Technique: Transabdominal & Transvaginal Scan Technically difficult due to position and Quality: maternal habitus. OB HISTORY: : 1 Term: 0 VITAL SIGNS: Weight (lb) Height BMI 220 5'2 40.23 EVALUATION: Number Of Fetuses: 1 Heart Rate(bpm): 140 Cardiac Activity: Observed Appears regular Presentation: Breech Placenta Location: Anterior Appearance: Grade 1 Relation to CVX: No previa Cord Insertion: Normal appearance Amniotic Fluid YANIV FV: Within Normal Limits Largest Pocket(cm) 4.43 Comment: A >2 x 2 cm pocket of fluid is noted. BIOMETRY: BPD: 48.5 mm G.Age: 20w 5d 60 % HC: 182.6 mm G.Age: 20w 5d 52 % AC: 150 mm G.Age: 20w 2d 38 % FL: 31.3 mm G.Age: 19w 5d 19 % HUM: 29.1 mm G.Age: 19w 3d 25 % CER: 21.3 mm G.Age: 20w 2d 47 % NFT: 3.47 mm NB: 5.48 mm 8 % 0.99 MoM LV: 6.8 mm CM: 6.2 mm OOD: 31.7 mm G.Age: 19w 2d 38 % CI: 71.53 % 70 - 86 FL/HC: 17.1 % 16.8 - 19.8 HC/AC: 1.22 1.09 - 1.39 FL/BPD: 64.5 % FL/AC: 20.9 % 20 - 24 Est. FW: 331 gm 0 lb 12 oz 27 % GESTATIONAL AGE: LMP: 24w 5d Date: 06/28/24 ISAURA: 04/04/25 U/S Today: 20w 3d ISAURA: 05/04/25 Best: 20w 3d Det. By: U/S C R Callie ISAURA: 05/04/25 (09/25/24) DETAILED ANATOMY: Head / Neck Cranial Vault: Normal appearance Cavum Septi Pellucidi: Normal appearance Parenchyma: Normal appearance R. Lat. Ventricle: Normal appearance L. Lat. Ventricle: Normal appearance Corpus Callosum: Suboptimal views Midline Falx: Normal appearance R. Choroid Plexus: Normal appearance L. Choroid Plexus.: Normal appearance Cerebellum: Normal appearance CCisterna Magna: Normal appearance Nuchal Fold: Normal appearance Neck: Normal appearance Face Face Profile: Normal appearance Nasal Bone: Normal appearance Coronal Face: Normal appearance Lips: Suboptimal views Nose: Normal appearance Lenses: Normal appearance Orbits: Normal appearance Palate: Normal appearance Heart Cardiac Activity: Normal appearance Cardiac Rhythm: Normal appearance 4 Chamber View: Suboptimal views R. Outflow Tract: Normal appearance L. Outflow Tract: Suboptimal views Interventr. Septum: Suboptimal views 3 Vessel View: Normal appearance 3V Trachea View: Normal appearance Cardiac Situs: Normal appearance Aortic Arch: Normal appearance SVC: Normal appearance IVC: Normal appearance Ductal Arch: Suboptimal views Crossing G. Ves.: Normal appearance Comment: The cardiac axis is 50.83 degrees Thorax Lungs: Normal appearance Cardiac Killdeer: Normal appearance Diaphragm: Normal appearance Thoracic Contour: Normal appearance Abdomen Situs: Normal appearance Stomach: Normal appearance Bowel: Normal appearance Liver: Normal appearance Abdominal Wall: Suboptimal views Urinary Bladder: Normal appearance R. Kidney: Normal appearance L. Kidney: Normal appearance R. Renal Artery: Normal appearance L. Renal Artery: Normal appearance Umbilical Cord: Normal Appearance UC Vessel Num.: Normal 3VC Cord Insertion: Suboptimal views Spine Cervical: Normal appearance Thoracic: Normal appearance Lumbar: Normal appearance Sacral: Normal appearance Shape / Curvature: Normal appearance Over. Soft Tissue: Normal appearance Vertebral Body: Normal appearance Extremities R. Humerus: Normal appearance L. Humerus: Normal appearance R. Forearm: Normal appearance L. Forearm: Normal appearance R. Hand: Normal appearance L. Hand: Normal appearance R. Femur: Normal appearance L. Femur: Normal appearance R. Lower Leg: Normal appearance L. Lower Leg: Normal appearance R. Foot: Normal appearance L. Foot: Normal appearance Other Genitalia: Normal appearance CERVIX UTERUS ADNEXA: Cervix Length: 3.6 cm. Within Normal Limits Right Ovary Size(cm) 2.4 x 1.58 x 1.18 Vol(ml): 2.34 Normal in size and appearance. It is found between the uterus and the pelvic sidewall. Left Ovary Size(cm) 2.83 x 1.94 x 2.02 Vol(ml): 5.81 Normal in size and appearance. It is found between the uterus and the pelvic sidewall. Cul De Sac There is no free fluid in the cul de sac. Adnexa Both adnexae appear unremarkable. COMMENTS: Ms. Amaro is being seen for a detailed ultrasound for a BMI of 40. - Her medical history is significant for asthma and obesity. - This is her first . She takes low-dose aspirin daily. - She had cell free DNA screening performed. Results were low-risk for all conditions assessed. Ultrasound findings: The biometry and anatomical survey are appropriate for the gestational age. The views of LVOT, ductal arch, 4 chamber, abdominal cord insertion, and nose/lips appear suboptimal. The detailed ultrasound could not be completed. - The cervix was assessed for risk of and placental location with vaginal ultrasound. The cervix is long and closed without funneling or dynamic changes. The placenta is anterior and is not low lying or a previa. Plan: Ms. Amaro is scheduled to return in 3 weeks to complete the detailed ultrasound. - Follow up growth at 32 weeks is recommended due to a BMI >40. Janay Mora MD Electronically Signed Final Report 12/22/2024 10:49 am Procedure Note Janay Mora MD - 12/22/2024 OBSTETRICS REPORT (Signed Final 12/22/2024 10:49 am) PATIENT INFO: ID #: [id number] : [birth year] (19 yrs)(F) Name: DANIELTwyla Visit Date: 12/18/2024 07:57 am FAVIAN PERFORMED BY: Attending: Janay Mora MD Performed By: Anuradha Casanova RDMS Referred By: Ying Wells DO Ref. Address: [address] [place] [address] Location: [facility] SERVICE(S) PROVIDED: US Level II complete (Targeted OB) 30212 OB Transvaginal ultrasound 85531 INDICATIONS: Obesity complicating , 2nd O99.212 trimester Morbid obesity E66.01 Encounter for screening for Z36.3 malformations Encounter for screening for Z36.86 cervical length 20 weeks gestation of Z3A.20 TECHNIQUE/SCAN QUALITY: Technique: Transabdominal & Transvaginal Scan Technically difficult due to position and Quality: maternal habitus. OB HISTORY: : 1 Term: 0 VITAL SIGNS: Weight (lb) Height BMI 220 5'2 40.23 EVALUATION: Number Of Fetuses: 1 Heart Rate(bpm): 140 Cardiac Activity: Observed Appears regular Presentation: Breech Placenta Location: Anterior Appearance: Grade 1 Relation to CVX: No previa Cord Insertion: Normal appearance Amniotic Fluid YANIV FV: Within Normal Limits Largest Pocket(cm) 4.43 Comment: A >2 x 2 cm pocket of fluid is noted. BIOMETRY: BPD: 48.5 mm G.Age: 20w 5d 60 % HC: 182.6 mm G.Age: 20w 5d 52 % AC: 150 mm G.Age: 20w 2d 38 % FL: 31.3 mm G.Age: 19w 5d 19 % HUM: 29.1 mm G.Age: 19w 3d 25 % CER: 21.3 mm G.Age: 20w 2d 47 % NFT: 3.47 mm NB: 5.48 mm 8 % 0.99 MoM LV: 6.8 mm CM: 6.2 mm OOD: 31.7 mm G.Age: 19w 2d 38 % CI: 71.53 % 70 - 86 FL/HC: 17.1 % 16.8 - 19.8 HC/AC: 1.22 1.09 - 1.39 FL/BPD: 64.5 % FL/AC: 20.9 % 20 - 24 Est. FW: 331 gm 0 lb 12 oz 27 % GESTATIONAL AGE: LMP: 24w 5d Date: 06/28/24 ISAURA: 04/04/25 U/S Today: 20w 3d ISAURA: 05/04/25 Best: 20w 3d Det. By: U/S Sven Nissa Ledesma ISAURA: 05/04/25 (09/25/24) DETAILED ANATOMY: Head / Neck Cranial Vault: Normal appearance Cavum Septi Pellucidi: Normal appearance Parenchyma: Normal appearance R. Lat. Ventricle: Normal appearance L. Lat. Ventricle: Normal appearance Corpus Callosum: Suboptimal views Midline Falx: Normal appearance R. Choroid Plexus: Normal appearance L. Choroid Plexus.: Normal appearance Cerebellum: Normal appearance CCisterna Magna: Normal appearance Nuchal Fold: Normal appearance Neck: Normal appearance Face Face Profile: Normal appearance Nasal Bone: Normal appearance Coronal Face: Normal appearance Lips: Suboptimal views Nose: Normal appearance Lenses: Normal appearance Orbits: Normal appearance Palate: Normal appearance Heart Cardiac Activity: Normal appearance Cardiac Rhythm: Normal appearance 4 Chamber View: Suboptimal views R. Outflow Tract: Normal appearance L. Outflow Tract: Suboptimal views Interventr. Septum: Suboptimal views 3 Vessel View: Normal appearance 3V Trachea View: Normal appearance Cardiac Situs: Normal appearance Aortic Arch: Normal appearance SVC: Normal appearance IVC: Normal appearance Ductal Arch: Suboptimal views Crossing G. Ves.: Normal appearance Comment: The cardiac axis is 50.83 degrees Thorax Lungs: Normal appearance Cardiac Killdeer: Normal appearance Diaphragm: Normal appearance Thoracic Contour: Normal appearance Abdomen Situs: Normal appearance Stomach: Normal appearance Bowel: Normal appearance Liver: Normal appearance Abdominal Wall: Suboptimal views Urinary Bladder: Normal appearance R. Kidney: Normal appearance L. Kidney: Normal appearance R. Renal Artery: Normal appearance L. Renal Artery: Normal appearance Umbilical Cord: Normal Appearance UC Vessel Num.: Normal 3VC Cord Insertion: Suboptimal views Spine Cervical: Normal appearance Thoracic: Normal appearance Lumbar: Normal appearance Sacral: Normal appearance Shape / Curvature: Normal appearance Over. Soft Tissue: Normal appearance Vertebral Body: Normal appearance Extremities R. Humerus: Normal appearance L. Humerus: Normal appearance R. Forearm: Normal appearance L. Forearm: Normal appearance R. Hand: Normal appearance L. Hand: Normal appearance R. Femur: Normal appearance L. Femur: Normal appearance R. Lower Leg: Normal appearance L. Lower Leg: Normal appearance R. Foot: Normal appearance L. Foot: Normal appearance Other Genitalia: Normal appearance CERVIX UTERUS ADNEXA: Cervix Length: 3.6 cm. Within Normal Limits Right Ovary Size(cm) 2.4 x 1.58 x 1.18 Vol(ml): 2.34 Normal in size and appearance. It is found between the uterus and the pelvic sidewall. Left Ovary Size(cm) 2.83 x 1.94 x 2.02 Vol(ml): 5.81 Normal in size and appearance. It is found between the uterus and the pelvic sidewall. Cul De Sac There is no free fluid in the cul de sac. Adnexa Both adnexae appear unremarkable. COMMENTS: Ms. Amaro is being seen for a detailed ultrasound for a BMI of 40. - Her medical history is significant for asthma and obesity. - This is her first . She takes low-dose aspirin daily. - She had cell free DNA screening performed. Results were low-risk for all conditions assessed. Ultrasound findings: The biometry and anatomical survey are appropriate for the gestational age. The views of LVOT, ductal arch, 4 chamber, abdominal cord insertion, and nose/lips appear suboptimal. The detailed ultrasound could not be completed. - The cervix was assessed for risk of and placental location with vaginal ultrasound. The cervix is long and closed without funneling or dynamic changes. The placenta is anterior and is not low lying or a previa. Plan: Ms. Amaro is scheduled to return in 3 weeks to complete the detailed ultrasound. - Follow up growth at 32 weeks is recommended due to a BMI >40. Janay Mora MD Electronically Signed Final Report 12/22/2024 10:49 am us Ying Wells DO IMG OB US PROCEDURES Final Re sult * Alpha fetoprotein, maternal (11/17/2024 2:38 PM EDT) Physician Phone Number [phone] 11/20/2024 11:55 AM EDT [facility] Notes to Laboratory Not Provided 11/20/2024 11:55 AM EDT [facility] Weight (lbs) 214 11/20/2024 11:55 AM EDT [facility] Expected Due Date (MM/DD/YYYY) [id number] 11/20/2024 11:55 AM EDT [facility] Expected Due Date Based On? Ultrasound 11/20/2024 11:55 AM EDT [facility] Twin ? No - Singletons 11/20/2024 11:55 AM EDT [facility] Race 11/20/2024 11:55 AM EDT [facility] Insulin Dependent Diabetic? No 11/20/2024 11:55 AM EDT [facility] Does Patient Currently Smoke Cigarettes? No 11/20/2024 11:55 AM EDT [facility] Repeat Screen for Current ? No 11/20/2024 11:55 AM EDT [facility] Previous w/ Neural Tube Defect? No 11/20/2024 11:55 AM EDT [facility] IVF ? No 11/20/2024 11:55 AM EDT [facility] Screen Result Negative Negative 11/20/2024 11:55 AM EDT [facility] Age at ISAURA (years) 20 11/20/2024 11:55 AM EDT [facility] Gestational Age (weeks) 16 11/20/2024 11:55 AM EDT [facility] Gestational Age (days) 0 11/20/2024 11:55 AM EDT [facility] Weight (lbs) 214 11/20/2024 11:55 AM EDT [facility] Multiple Gestation Single 11/20/2024 11:55 AM EDT [facility] Ethnic Origin 11/20/2024 11:55 AM EDT [facility] Insulin Dependent Diabetes None 11/20/2024 11:55 AM EDT [facility] Smoker? No 11/20/2024 11:55 AM EDT [facility] AFP 34.3 ng/mL 11/20/2024 11:55 AM EDT [facility] AFP MOM 1.36 11/20/2024 11:55 AM EDT [facility] Gestational Age Method US ISAURA 11/20/2024 11:55 AM EDT [facility] Comment: The gestational age is based on an ISAURA of 05[birth year]04/25 as determined by ultrasound. Interpretation SeeBelow 11/20/2024 11:55 AM EDT [facility] Comment: This is the initial sample received at [facility] for MSAFP SCREEN NEGATIVE FOR NEURAL TUBE DEFECTS. Additional Test Information: The MSAFP does not provide a risk estimate or a diagnosis. Incorrect or missing information may considerably alter results. A positive report is indicated when the AFP MOM is greater than or equal to 2.20. Maternal weights less than 65 lbs or greater than 440 lbs are truncated and the AFP MOM is not adjusted beyond those limits. Assessment is adjusted for insulin-dependent diabetic status, weight, race and smoking. Previous pregnancies affected with a neural tube defect may significantly affect results. Test performed at [facility], [address] , [place] [address] Krista Topete MD, PhD - [employer] Blood Venous blood specimen / Unknown Venipuncture / Unknown 11/17/2024 2:38 PM EDT 11/17/2024 2:38 PM EDT us [facility] BLOOD ORDERABLES Final Re sult [place] [place] [address] * US OB Less 14 Wks Nuchal Measurement (10/23/2024 9:55 AM EDT) Anatomical Region Laterality Modality Body Ultrasound 10/23/2024 9:31 AM EDT Narrative 10/23/2024 10:06 AM EDT OBSTETRICS REPORT (Signed Final 10/23/2024 10:06 am) PATIENT INFO: ID #: [id number] : [birth year] (19 yrs)(F) Name: AGUSTO Visit Date: 10/23/2024 09:31 am FAVIAN PERFORMED BY: Attending: Kera Fitzgerald MD Performed By: August Contreras RDMS Referred By: Leilani Ritter CNM Ref. Address: [address] [place] [address] Location: [facility] SERVICE(S) PROVIDED: US Nuchal Translucency 62299 US < 14 weeks Abdominal Ultrasound 58937 INDICATIONS: Obesity complicating , 1st O99.211 trimester Morbid obesity E66.01 Encounter for screening for nuchal Z36.82 translucency Encounter for screening for Z36.3 malformations 12 weeks gestation of Z3A.12 TECHNIQUE/SCAN QUALITY: Technique: Transabdominal Scan Satisfactory Quality: OB HISTORY: : 1 Term: 0 VITAL SIGNS: Weight (lb) Height BMI 215 5'2 39.32 EVALUATION: Number Of Fetuses: 1 Heart Rate(bpm): 149 Cardiac Activity: Observed Presentation: Variable Placenta Location: Anterior Appearance: Grade 0 Cord Insertion: Visualized BIOMETRY: GESTATIONAL AGE: LMP: 16w 5d Date: 06/28/24 ISAURA: 04/04/25 Best: 12w 3d Det. By: Azucena Ledesma ISAURA: 05/04/25 (09/25/24) 1ST TRIMESTER GENETIC SONOGRAM SCREENING: CRL: 65.18 mm G.Age: 12w 6d ISAURA: 05/01/25 Nuc Trans: 1.37 mm STANDARD ANATOMY: Cranium: Normal appearance Choroid Plexus: Normal appearance Stomach: Normal appearance Abdominal Wall: Normal appearance Cord Vessels: Normal 3-Vessel Cord Bladder: Normal appearance Upper Extremities: Seen Lower Extremities: Seen CERVIX UTERUS ADNEXA: Uterus Size(cm) 8.7 x 9.59 x 7.83 Uterus Vol(ml): 342.06 Myometrium homogeneous, no lesions identified. Right Ovary Size(cm) 1.7 x 1.41 x 1.31 Vol(ml): 1.64 Normal in size and appearance. It is found between the uterus and the pelvic sidewall. Left Ovary Size(cm) 2.91 x 2.16 x 2.11 Vol(ml): 6.94 Normal in size and appearance. It is found between the uterus and the pelvic sidewall. COMMENTS: Ms. Amaro is being seen for first trimester screening for aneuploidy. - Her medical history is significant for asthma and obesity. - This is her first . - She had cell free DNA screening performed. Results were low-risk for all conditions assessed. - Ultrasound findings: The nuchal translucency measurement is < 95th% for the gestational age. - biometry is consistent with dates. Assessment of the anatomy is appropriate for the gestational age. There are no ultrasound findings to suggest aneuploidy. - Plan: 1. A detailed ultrasound and cervical length screening for risk of have been scheduled. - 2. The patient should be offered second trimester MSAFP only, to assess for risk of an open neural tube defect. Kera Fitzgerald MD Electronically Signed Final Report 10/23/2024 10:06 am Procedure Gregorio Kera Fitzgerald MD - 10/23/2024 OBSTETRICS REPORT (Signed Final 10/23/2024 10:06 am) PATIENT INFO: ID #: [id number] : [birth year] (19 yrs)(F) Name: AGUSTO Visit Date: 10/23/2024 09:31 am FAVIAN PERFORMED BY: Attending: Kera Fitzgerald MD Performed By: August Contreras [facility] Referred By: Leilani Ritter [facility] Ref. Address: [address] [place] [address] Location: [facility] SERVICE(S) PROVIDED: US Nuchal Translucency 87919 US < 14 weeks Abdominal Ultrasound 63612 INDICATIONS: Obesity complicating , 1st O99.211 trimester Morbid obesity E66.01 Encounter for screening for nuchal Z36.82 translucency Encounter for screening for Z36.3 malformations 12 weeks gestation of Z3A.12 TECHNIQUE/SCAN QUALITY: Technique: Transabdominal Scan Satisfactory Quality: OB HISTORY: : 1 Term: 0 VITAL SIGNS: Weight (lb) Height BMI 215 5'2 39.32 EVALUATION: Number Of Fetuses: 1 Heart Rate(bpm): 149 Cardiac Activity: Observed Presentation: Variable Placenta Location: Anterior Appearance: Grade 0 Cord Insertion: Visualized BIOMETRY: GESTATIONAL AGE: LMP: 16w 5d Date: 06/28/24 ISAURA: 04/04/25 Best: 12w 3d Det. By: Azucena Ledesma ISAURA: 05/04/25 (09/25/24) 1ST TRIMESTER GENETIC SONOGRAM SCREENING: CRL: 65.18 mm G.Age: 12w 6d ISAURA: 05/01/25 Nuc Trans: 1.37 mm STANDARD ANATOMY: Cranium: Normal appearance Choroid Plexus: Normal appearance Stomach: Normal appearance Abdominal Wall: Normal appearance Cord Vessels: Normal 3-Vessel Cord Bladder: Normal appearance Upper Extremities: Seen Lower Extremities: Seen CERVIX UTERUS ADNEXA: Uterus Size(cm) 8.7 x 9.59 x 7.83 Uterus Vol(ml): 342.06 Myometrium homogeneous, no lesions identified. Right Ovary Size(cm) 1.7 x 1.41 x 1.31 Vol(ml): 1.64 Normal in size and appearance. It is found between the uterus and the pelvic sidewall. Left Ovary Size(cm) 2.91 x 2.16 x 2.11 Vol(ml): 6.94 Normal in size and appearance. It is found between the uterus and the pelvic sidewall. COMMENTS: Ms. Amaro is being seen for first trimester screening for aneuploidy. - Her medical history is significant for asthma and obesity. - This is her first . - She had cell free DNA screening performed. Results were low-risk for all conditions assessed. - Ultrasound findings: The nuchal translucency measurement is < 95th% for the gestational age. - biometry is consistent with dates. Assessment of the anatomy is appropriate for the gestational age. There are no ultrasound findings to suggest aneuploidy. - Plan: 1. A detailed ultrasound and cervical length screening for risk of have been scheduled. - 2. The patient should be offered second trimester MSAFP only, to assess for risk of an open neural tube defect. Kera Fitzgerald MD Electronically Signed Final Report 10/23/2024 10:06 am us Leilani Ritter CNM IMG OB US PROCEDURES Final R esult * US OB Less 14 Wks Single or First Gestation (10/23/2024 9:55 AM EDT) Anatomical Region Laterality Modality Body Ultrasound 10/23/2024 9:31 AM EDT Narrative 10/23/2024 10:06 AM EDT OBSTETRICS REPORT (Signed Final 10/23/2024 10:06 am) PATIENT INFO: ID #: [id number] : [birth year] (19 yrs)(F) Name: AGUSTO Visit Date: 10/23/2024 09:31 am FAVIAN PERFORMED BY: Attending: Kera Fitzgerald MD Performed By: August Contreras [facility] Referred By: Leilani SALAZAR Ref. Address: [address] [place] [address] Location: [facility] SERVICE(S) PROVIDED: US Nuchal Translucency 01815 US < 14 weeks Abdominal Ultrasound 19604 INDICATIONS: Obesity complicating , 1st O99.211 trimester Morbid obesity E66.01 Encounter for screening for nuchal Z36.82 translucency Encounter for screening for Z36.3 malformations 12 weeks gestation of Z3A.12 TECHNIQUE/SCAN QUALITY: Technique: Transabdominal Scan Satisfactory Quality: OB HISTORY: : 1 Term: 0 VITAL SIGNS: Weight (lb) Height BMI 215 5'2 39.32 EVALUATION: Number Of Fetuses: 1 Heart Rate(bpm): 149 Cardiac Activity: Observed Presentation: Variable Placenta Location: Anterior Appearance: Grade 0 Cord Insertion: Visualized BIOMETRY: GESTATIONAL AGE: LMP: 16w 5d Date: 06/28/24 ISAURA: 04/04/25 Best: 12w 3d Det. By: Azucena Ledesma ISAURA: 05/04/25 (09/25/24) 1ST TRIMESTER GENETIC SONOGRAM SCREENING: CRL: 65.18 mm G.Age: 12w 6d ISAURA: 05/01/25 Nuc Trans: 1.37 mm STANDARD ANATOMY: Cranium: Normal appearance Choroid Plexus: Normal appearance Stomach: Normal appearance Abdominal Wall: Normal appearance Cord Vessels: Normal 3-Vessel Cord Bladder: Normal appearance Upper Extremities: Seen Lower Extremities: Seen CERVIX UTERUS ADNEXA: Uterus Size(cm) 8.7 x 9.59 x 7.83 Uterus Vol(ml): 342.06 Myometrium homogeneous, no lesions identified. Right Ovary Size(cm) 1.7 x 1.41 x 1.31 Vol(ml): 1.64 Normal in size and appearance. It is found between the uterus and the pelvic sidewall. Left Ovary Size(cm) 2.91 x 2.16 x 2.11 Vol(ml): 6.94 Normal in size and appearance. It is found between the uterus and the pelvic sidewall. COMMENTS: Ms. Amaro is being seen for first trimester screening for aneuploidy. - Her medical history is significant for asthma and obesity. - This is her first . - She had cell free DNA screening performed. Results were low-risk for all conditions assessed. - Ultrasound findings: The nuchal translucency measurement is < 95th% for the gestational age. - biometry is consistent with dates. Assessment of the anatomy is appropriate for the gestational age. There are no ultrasound findings to suggest aneuploidy. - Plan: 1. A detailed ultrasound and cervical length screening for risk of have been scheduled. - 2. The patient should be offered second trimester MSAFP only, to assess for risk of an open neural tube defect. Kera Fitzgerald MD Electronically Signed Final Report 10/23/2024 10:06 am Procedure Kera Arias MD - 10/23/2024 OBSTETRICS REPORT (Signed Final 10/23/2024 10:06 am) PATIENT INFO: ID #: [id number] : [birth year] (19 yrs)(F) Name: AGUSTO Visit Date: 10/23/2024 09:31 am FAVIAN PERFORMED BY: Attending: Kera Fitzgerald MD Performed By: August Conterras [facility] Referred By: Leilani SALAZAR Ref. Address: [address] [place] [address] Location: [facility] SERVICE(S) PROVIDED: US Nuchal Translucency 17033 US < 14 weeks Abdominal Ultrasound 36472 INDICATIONS: Obesity complicating , 1st O99.211 trimester Morbid obesity E66.01 Encounter for screening for nuchal Z36.82 translucency Encounter for screening for Z36.3 malformations 12 weeks gestation of Z3A.12 TECHNIQUE/SCAN QUALITY: Technique: Transabdominal Scan Satisfactory Quality: OB HISTORY: : 1 Term: 0 VITAL SIGNS: Weight (lb) Height BMI 215 5'2 39.32 EVALUATION: Number Of Fetuses: 1 Heart Rate(bpm): 149 Cardiac Activity: Observed Presentation: Variable Placenta Location: Anterior Appearance: Grade 0 Cord Insertion: Visualized BIOMETRY: GESTATIONAL AGE: LMP: 16w 5d Date: 06/28/24 ISAURA: 04/04/25 Best: 12w 3d Det. By: Azucena Ledesma ISAURA: 05/04/25 (09/25/24) 1ST TRIMESTER GENETIC SONOGRAM SCREENING: CRL: 65.18 mm G.Age: 12w 6d ISAURA: 05/01/25 Nuc Trans: 1.37 mm STANDARD ANATOMY: Cranium: Normal appearance Choroid Plexus: Normal appearance Stomach: Normal appearance Abdominal Wall: Normal appearance Cord Vessels: Normal 3-Vessel Cord Bladder: Normal appearance Upper Extremities: Seen Lower Extremities: Seen CERVIX UTERUS ADNEXA: Uterus Size(cm) 8.7 x 9.59 x 7.83 Uterus Vol(ml): 342.06 Myometrium homogeneous, no lesions identified. Right Ovary Size(cm) 1.7 x 1.41 x 1.31 Vol(ml): 1.64 Normal in size and appearance. It is found between the uterus and the pelvic sidewall. Left Ovary Size(cm) 2.91 x 2.16 x 2.11 Vol(ml): 6.94 Normal in size and appearance. It is found between the uterus and the pelvic sidewall. COMMENTS: Ms. Amaro is being seen for first trimester screening for aneuploidy. - Her medical history is significant for asthma and obesity. - This is her first . - She had cell free DNA screening performed. Results were low-risk for all conditions assessed. - Ultrasound findings: The nuchal translucency measurement is < 95th% for the gestational age. - biometry is consistent with dates. Assessment of the anatomy is appropriate for the gestational age. There are no ultrasound findings to suggest aneuploidy. - Plan: 1. A detailed ultrasound and cervical length screening for risk of have been scheduled. - 2. The patient should be offered second trimester MSAFP only, to assess for risk of an open neural tube defect. Kera Fitzgerald MD Electronically Signed Final Report 10/23/2024 10:06 am us Leilani SALAZAR IMG OB US PROCEDURES Final R esult * Chlamydia trachomatis and Neisseria gonorrhoeae molecular study (09/29/2024 2:10 PM EDT) Neisseria gonorrhoeae PCR Negative Negative LAB MOLECULAR DIAGNOSTICS METHOD 09/30/2024 12:05 PM EDT [facility] Chlamydia trachomatis PCR Negative Negative LAB MOLECULAR DIAGNOSTICS METHOD 09/30/2024 12:05 PM EDT [facility] Swab Vaginal structure / Unknown Non-blood Collection / Unknown 09/29/2024 2:10 PM EDT 09/29/2024 2:10 PM EDT Leilani Ritter CNM LAB MICROBIOLOGY - GENERAL O RDERABLES Final Result Performing Organization Address [facility]/ZIP Co de Phone Number [facility] [address] [place] [address], [place] [phone] * Hepatitis C antibody (09/23/2024 4:09 PM EDT) Hepatitis C Antibody Negative Negative LAB CHEMISTRY METHOD 09/23/2024 8:46 PM EDT [facility] Blood Venous blood specimen / Unknown Venipuncture / Unknown 09/23/2024 4:09 PM EDT 09/23/2024 4:09 PM EDT Leilani SALAZAR LAB BLOOD ORDERABLES Final R esult Performing Organization Address City/[facility]/ZIP Co de Phone Number [facility] [address] [place] [address], [place] [phone] * HIV 1,2 antibody, p24 antigen with reflex to differentiation (09/23/2024 4:09 PM EDT) [facility] HIV Combo AB/AG Negative Negative LAB CHEMISTRY METHOD 09/23/2024 8:47 PM EDT [facility] Blood Venous blood specimen / Unknown Venipuncture / Unknown 09/23/2024 4:09 PM EDT 09/23/2024 4:09 PM EDT Narrative [facility] - 09/23/2024 8:47 PM EDT This assay is a 4th generation assay allowing for earlier detection of HIV infection by detecting the presence of the HIV-1 p24 antigen as well as the traditional antibodies to HIV type 1 (including group O) and type 2. Use of a 4th generation assay is the current CDC recommendation for HIV screening. Leilani SALAZ[facility] BLOOD ORDERABLES Final R esult [facility] [address] [place] [address], from Last 3 Months or Most Recently Relevant to Health Maintenance Insurance [facility] [employer] Care Teams Aquatics Instructor Relationship Specialty Start Date End Date Palak Goldman MD [address] [place] [phone] PCP - General Pediatrics 09/09/24
[2025-01-09 01:14] VITALS: BP 105/62; PULSE 90; RESP 25; TEMP 36.4; O2SAT 99
--- NOTE | 2025-01-09 01:27 | ED.CHESTPAIN ---
HPI - Chest Pain General Chief Complaint: Chest Pain Stated Complaint: chest tightness, SOB, hot flash Time Seen by Provider: 01/09/25 01:04 Source: patient and family ( significant other) Mode of arrival: ambulatory Limitations: no limitations History of Present Illness ED Provider: DR. Manzanares HPI narrative: 19-year-old female 23 weeks presented with shortness of breath and chest tightness started 2 hours before presenting to the ED that woke her up from sleep, patient declined any lower extremity swelling, no history of DVT, no history of pulmonary embolism, patient with history of asthma , patient ran out of her albuterol, no fever, no chills,, no fever, no chills, no productive cough, no coughing blood. No abdominal pain, no abdominal contraction, no vaginal discharge, no vaginal bleeding. Patient follow-up for care at [facility] and the care is unremarkable. Related Data Previous Rx's ?Medication ?Instructions ?Recorded ibuprofen 600 mg tablet 600 mg PO Q8H PRN pain #10 tabs 01/15/22 ibuprofen 600 mg tablet 600 mg PO Q8H PRN pain #20 tabs 10/27/22 amoxicillin 875 mg-potassium 1 tab PO BID #20 tabs 07/20/23 clavulanate 125 mg tablet doxycycline hyclate 100 mg capsule 100 mg PO BID #10 caps 01/09/24 albuterol sulfate 90 mcg/actuation 2 inh inhalation Q4-6H PRN 01/09/25 breath activated powder inhaler shortness of breath or wheezing #1 ea prednisone 10 mg tablet 10 mg PO BID #6 tabs 01/09/25 Allergies Allergy/AdvReac Type Severity Reaction Status Date / Time No Known Allergies Allergy Verified 01/09/25 01:04 Review of Systems Review of Systems: all other systems are reviewed and are negative Constitutional: Reports as per HPI and Reports no additional constitutional complaints Eyes: Reports as per HPI and Reports no additional eye complaints Reports system reviewed and no additional complaints, except as documented Cardiovascular: Reports as per HPI and Reports no additional cardiovascular complaints Respiratory: Reports as per HPI and Reports no additional respiratory complaints Gastrointestinal: Reports as per HPI and Reports no additional gastrointestinal complaints Genitourinary: Reports no additional female genitourinary complaints Musculoskeletal: Reports no additional musculoskeletal complaints Skin/Breast: Reports system reviewed and no additional complaints, except as docu Psychiatric: Reports no additional psychiatric complaints Endocrine: Reports no additional endocrine complaints Hematologic/Lymphatic: Reports no additional hematologic/lymphatic complaints Allergic/Immunologic: Reports no additional allergic/immunologic complaints Reports system reviewed and no additional complaints, except as documented and Reports Abnormal speech present [facility] Social History Social History Advance Directives: No Advance Directives Information Provided: No Physical Exam Vital Signs: Vital Signs: Last Vital Signs Temp 97.6 F 01/09/25 01:14 Pulse 88 01/09/25 01:47 Resp 18 01/09/25 01:47 BP 105/62 01/09/25 01:14 Pulse Ox 98 01/09/25 03:05 O2 Del Method Room Air 01/09/25 01:14 BMI result Body Mass Index 41.6 Vital signs have been reviewed and appear to be correct. Blood pressure elevated. normal heart rate, Respiratory rate normal. Temperature normal. Oxygen saturation normal. Appearance: Alert. Oriented X3. No acute distress. Head: Normal external exam. Normocephalic. Atraumatic. No Smith signs noted. No raccoon eyes noted Eyes: PERRLA. EOMI. Conjunctiva and sclera normal. Eyelids normal. ENT: TM's Normal. Pharynx normal. Uvula midline. Moist mucous membranes. No trismus noted. No drooling noted. No muffled voice noted. Neck: Normal inspection. Neck supple. FROM. No adenopathy. Thyroid Normal. No meningeal signs. No neck mass noted. CVS: Normal heart rate and rhythm. Heart sound normal. No murmurs noted. Pulses normal throughout. Respiratory: No respiratory distress. Painless inspiration. Breath sounds normal. No wheezes/rales/rhonchi noted. Chest nontender. No accessory muscle usage noted or decreased air movement noted. Abdomen: Soft and nontender. Bowel sounds normal in all 4 quadrants. No distention noted. No organomegaly noted. No visible injury noted. Back: No CVA tenderness. Full range of motion noted. Skin: Skin warm and dry. Normal skin color. Normal skin turgor. No rashes/lesions/lacerations noted. Extremities: No lower extremity edema. Extremities exhibit normal range of motion. Extremities nontender. Neuro: Oriented X 3. Cranial nerve exam: II-XII are grossly intact No motor deficit. No sensory deficit. Reflexes normal. Course Reevaluation(s) Reevaluation #1: 19-year-old female presented with chest tightness and shortness of breath with chest pain, beside no other risk factor for pulmonary embolism there is a slight elevation of D-dimer which I believe it is secondary to , patient reported improvement after bronchodilator, vital sign is stable, no hypoxia, no tachypnea, no tachycardia which make pulmonary embolism is unfavorable, I feel it is not necessary to expose the patient to unnecessary ionized radiation and CTA of the chest especially with the patient's symptoms improvement and absence of lower extremity swelling or tenderness. Slight leukocytosis and mild anemia likely secondary to and stress reaction. Patient was instructed to follow-up with her provider. Will start the patient on albuterol and short course of prednisone. Time: 02:25 Reevaluation #2: feels much better, keep O2 sat above 98%, O2 saturation with ambulation was 98%, no tachypnea, improvement with bronchodilator and prednisone. patient is safe to be discharged now. Time: 04:00 Medications Administered Discontinued Medications Generic Name Dose Route Start Last Admin Trade Name Freq PRN Reason Stop Dose Admin Albuterol Sulfate 2 puff 01/09/25 01:42 01/09/25 01:47 Albuterol Sulfate 90 Mcg 8 Gm Inhaler INHALE 01/09/25 01:43 2 puff ONCE ONE Administration Prednisone 60 mg 01/09/25 01:31 01/09/25 02:14 Prednisone 20 Mg Tablet PO 01/09/25 01:32 60 mg ONCE ONE Administration Medical Decision Making Differential Diagnosis Differential Diagnoses: The differential diagnosis associated with the presentation includes ( pneumonia, pneumothorax, pleural effusion, pulmonary embolism, ACS.) Admission/Observation Consideration of admission/observation: Escalation of care including admission/observation considered Lab Data MDM Lab Attestation statement: I reviewed the patient's lab results. 01/09/25 01:31 01/09/25 01:31 Labs: Lab Results 01/09/25 Range/Units 01:31 WBC 13.3 H (4.8-10.8) X10*3/uL RBC 3.63 L D (4.20-5.50) X10*6/uL Hgb 10.9 L D (12.0-16.0) g/dl Hct 31.1 L D (37.0-47.0) % MCV 85.7 (80.0-98.0) fL MCH 30.0 (27.0-33.0) pg MCHC 35.0 (31.0-35.0) g/dl RDW 13.4 (11.0-16.0) % Plt Count 203 D (160-400) X10*3/uL MPV 9.8 (9.4-12.3) fL Immature Gran % (Auto) 0.8 H (0.0-0.4) % Neut % (Auto) 73.9 H (45-73) % Lymph % (Auto) 18.6 L (20-40) % [place] % (Auto) 6.2 (2-11) % Eos % (Auto) 0.3 (0-4) % Baso % (Auto) 0.2 (0-2) % Lymph # (Auto) 2.5 (1.2-4.9) X10*3/uL [place] # (Auto) 0.8 (0.1-1.2) X10*3/uL Eos # (Auto) 0.0 (0.0-0.4) X10*3/uL Baso # (Auto) 0.0 (0.0-0.2) X10*3/uL Abs Immat Gran (auto) 0.11 H (0.00-0.03) X10*3/uL Absolute Neuts (auto) 9.8 H (2.0-8.3) x10*3/uL Absolute Nucleated RBC 0.000 (0.0-0.012) X10*3/uL Nucleated RBC % (auto) 0.0 (0.0-0.2) /100WBC D-Dimer High Sensitivty 506 NG/ML Sodium 140 (135-145) mmol/L Potassium 3.6 (3.3-5.1) mmol/L Chloride 107 (96-108) mmol/L Carbon Dioxide 22 (22-29) mmol/L Anion Gap 15 (12-20) BUN 9 (9-16) mg/dL Creatinine 0.64 (0.5-1.4) mg/dL Estim Creat Clear Calc 157.8 Estimated GFR > 60 Random Glucose 85 (60-115) mg/dL Calcium 8.9 D (8.4-10.2) mg/dL Magnesium 1.8 (1.6-2.6) mg/dL Total Bilirubin 0.4 (0.0-1.0) mg/dL AST 39 H (5-31) U/L ALT 16 (0-31) U/L Alkaline Phosphatase 95 (39-117) U/L Troponin I High Sens < 2.7 (<3.5-17.0) ng/L Total Protein 6.4 L (6.5-8.0) g/dL Albumin 3.5 (3.5-5.0) g/dL Beta HCG, Quant 2582 mIU/mL Independent Interpretation I performed an independent interpretation of an: Plain X-Ray ( Chest:1. No acute findings. Previously described right basilar curvilinear opacity is not visualized on this single AP view exam.) Radiology Impression Discussion of test interpretation with radiology: I have reviewed the radiologist's reading. Discharge Plan Discharge Clinical Impression: Acute asthma exacerbation Patient Disposition: Home, Self-Care Instructions: Asthma (ED) Prescriptions: New prednisone 10 mg tablet 10 mg PO BID Qty: 6 0RF albuterol sulfate 90 mcg/actuation aerosol powdr breath activated 2 inh inhalation Q4-6H PRN (Reason: shortness of breath or wheezing) Qty: 1 0RF No Action ibuprofen 600 mg tablet 600 mg PO Q8H PRN (Reason: pain) Qty: 10 0RF ibuprofen 600 mg tablet 600 mg PO Q8H PRN (Reason: pain) Qty: 20 0RF amoxicillin-pot clavulanate 875-125 mg tablet 1 tab PO BID Qty: 20 0RF doxycycline hyclate 100 mg capsule 100 mg PO BID Qty: 10 0RF Print Language: Romanian
[2025-01-09 01:37] LABS: Hematocrit 31.1 % (37.0-47.0); Hemoglobin 10.9 g/dl (12.0-16.0); Imm Gran Abs Auto 0.11 X10*3/uL (0.00-0.03); Imm Gran Pct Auto 0.8 % (0.0-0.4); Lymphocytes Absolute Auto 2.5 X10*3/uL (1.2-4.9); MANUAL DIFF FLAG NO; Mean Corpuscular HGB Conc 35.0 g/dl (31.0-35.0); Mean Corpuscular Hemoglobin 30.0 pg (27.0-33.0); Mean Corpuscular Volume 85.7 fL (80.0-98.0); NRBC Abs Auto 0.000 X10*3/uL (0.0-0.012); NRBC Pct Auto 0.0 /100WBC (0.0-0.2); Platelet Count 203 X10*3/uL (160-400); Red Blood Count 3.63 X10*6/uL (4.20-5.50); White Blood Count 13.3 X10*3/uL (4.8-10.8)
[2025-01-09 01:47] VITALS: PULSE 88; RESP 18; O2SAT 99
[2025-01-09] MEDS: Albuterol Sulfate 90 MCG 8 GM INHALER 2 PUFF INHALE (01:47)
[2025-01-09 01:50] LABS: D Dimer High Sensitivity 506 NG/ML
[2025-01-09 01:54] LABS: Alanine Aminotransferase 16 U/L (0-31); Albumin Level 3.5 g/dL (3.5-5.0); Alkaline Phosphatase 95 U/L (39-117); Anion Gap 15 (12-20); Aspartate Amino Transferase 39 U/L (5-31); Blood Urea Nitrogen 9 mg/dL (9-16); Calcium 8.9 mg/dL (8.4-10.2); Carbon Dioxide 22 mmol/L (22-29); Chloride 107 mmol/L (96-108); Creatinine Clr Calc Pharmacy 157.8; Estimated Glomerular Filt Rate > 60; Magnesium 1.8 mg/dL (1.6-2.6); Potassium 3.6 mmol/L (3.3-5.1); Sodium 140 mmol/L (135-145); Total Protein 6.4 g/dL (6.5-8.0)
[2025-01-09 02:03] LABS: Troponin-I High Sensitivity < 2.7 ng/L (<3.5-17.0)
[2025-01-09 03:05] VITALS: O2SAT 98
--- NOTE | 2025-01-09 03:23 | PC.NURSE ---
pt taken for ambulatory trial, 02 maintained at 99-100% through out, provider aware.
[2025-01-09 04:10] VITALS: BP 117/68; PULSE 89; RESP 16; TEMP 36.7; O2SAT 98
== END 2025-01-09 04:11 | disposition home or self-care (01) ==
PROVIDERS: Emergency Provider Emergency Medicine; PCP Nurse Practitioner Pediatrics
DX: J45.901 Unspecified asthma with (acute) exacerbation (principal); R07.9 Chest pain, unspecified; R06.02 Shortness of breath
CPT/HCPCS: 36415; 71045; 80053; 83735; 84484; 84702; 85025; 85379; 93005; 94640; 99284; 99285

== ENCOUNTER → 2025-01-09 01:05 | Outpatient (BNV) | payer OTHER, SELFPAY | PROVIDERS: Emergency Provider Emergency Medicine; PCP Nurse Practitioner Pediatrics; Visit Provider Internal Medicine Cardiovascular Disease | DX: R07.89 Other chest pain (principal) | CPT/HCPCS: 93010 ==

== ENCOUNTER → 2025-01-09 01:14 | Outpatient (BNV) | payer OTHER, SELFPAY | PROVIDERS: Emergency Provider Emergency Medicine; PCP Nurse Practitioner Pediatrics; Visit Provider Student in an Organized Health Care Education/Training Program | DX: R07.89 Other chest pain (principal) | CPT/HCPCS: 71045 ==

== ENCOUNTER 2025-02-23 16:03 | Outpatient (AMB) | payer OTHER, SELFPAY ==
--- OUTSIDE RECORDS SUMMARY | 2025-02-22 11:00 | XMS_ITS | Encounter Summary ---
Author Organization [employer] Address [address] [place] [address] Care Team Providers Care Graphics Coordinator Name Role Phone Palak Goldman MD Primary Care Provider [phone] Reason for Referral * Imaging (Routine) - Pending Review Specialty Diagnoses / Procedures Referred By Shameka collins Referred To Contact Radiology Diagnoses Supervision of high risk in third trimester Procedures US OB Followup per Fetus Shy Theodore CNM [address] [place], [place] Phone: tel: fax: [address] [phone] Phone: tel: Referral ID Status Reason Start Date Expiration Date V isits Requested Visits Authorized [id number] Pending Review 02/22/2025 02/22/2026 1 1 Reason for Visit * Reason Comments Routine Visit Encounter Details Date Type Department Care Team (Latest Contact Info) Description 02/22/2025 11:00 AM EDT Routine Obstetrics & Gynecology - [address] [phone] Shy Theodore CNM [address] [place], [place] Supervision of high risk in third trimester (Primary Dx); 29 weeks gestation of ; Maternal obesity, antepartum; Skin rash; Headache in , antepartum, third trimester Social History Tobacco Use Types Packs/Day Years [...] on file Sexual Orientation Not on file documented as of this encounter Last Filed Vital Signs Vital Sign Reading Time Taken Comments Blood Pressure 100/60 02/22/2025 10:52 AM EDT p 90 Pulse - - Temperature - - Respiratory Rate - - Oxygen Saturation - - Inhaled Oxygen Concentration - - Weight 107 kg (236 lb 4.8 oz) 02/22/2025 10:52 A M EDT Height - - Body Mass Index 43.22 09/23/2024 1:38 PM EDT documented in this encounter Ordered Prescriptions Prescription Sig Dispense Quantity Refills Last Filled Start Date End Date hydrocortisone acetate 0.5 % cream Apply topically 2 (two) times a day. 30 g 02/22/2025 documented in this encounter Progress Notes * Melony Portillo MA - 02/22/2025 11:00 AM EDT Ob f/up c/o headaches with spots in vision and left wrist rash * Shy Theodore CNM - 02/22/2025 11:00 AM EDT Subjective Chief Complaint Patient presents with Routine Visit Agusto Amaro is a 19 y.o. at 29w6d with a working estimated date of delivery of Estimated Date of Delivery: 05/04/25 by Last Menstrual Period who presents for a routine visit. She denies vaginal bleeding or leakage of fluid, denies uc. reports FM C/o baum and spots with visiion Rash on left wrist Objective Physical Exam Vitals BP: 100/60 (p 90) Weight: 107 kg (236 lb 4.8 oz) Assessment Heart Rate: 140 Fundal Height (cm): 31 cm Ob check list: Tdap due: given Flu vaccine due: n/a If glucose completed: neg result Gbs: n/a Problem list reviewed. Assessment/Plan Supervision of high risk in third trimester (Primary) - US OB Followup per Fetus; Future 29 weeks gestation of Maternal obesity, antepartum Skin rash Headache in , antepartum, third trimester Other orders - hydrocortisone acetate 0.5 % cream; Apply topically 2 (two) times a day. Dispense: 30 g; Refill: 0 Reviewed use of tylenol or mg to improve baum if not resolved should call will consider use of fioricet Rx hydrocortisone for skin rash on left wrist Growth u/s for 32wks to schedule F/u routinely documented in this encounter Plan of Treatment Upcoming Encounters Date Type Department Care Team (Late st Contact Info) Description 03/09/2025 8:30 AM EST Routine Obstetrics and Gynecology - [address] [phone] Ying Wells DO [address] [place], [place] 03/15/2025 10:00 AM EST Ancillary Procedure Maternal Medicine - [address] [phone] 03/22/2025 1:00 PM EST Routine Obstetrics & Gynecology [address] [phone] Shy Theodore CNM [address] [place] [id number] 04/05/2025 11:15 AM EST Routine Obstetrics & [address] [phone] Shy Theodore CNM [address] [place] [id number] 04/12/2025 1:15 PM EST Routine Obstetrics & Gynecology - [address] [phone] Shy Theodore, [address] [address] 04/19/2025 1:00 PM EST Routine Obstetrics & Gynecology - [address] [phone] Shy Theodore, [address] [address] 04/27/2025 1:30 PM EST Routine Obstetrics [facility]necology - [address] [place] [address] Leilani Ritter, [address] [phone] 05/03/2025 11:15 AM EST Routine Obstetrics & Gynecology - [address] [phone] Shy Theodore, [address] [address] Scheduled Orders Name Type Priority Associated Diagnoses Orde r Schedule US OB Followup per Fetus Imaging Routine Supervision of high risk in third trimester Expected: 03/15/2025, Expires: 02/22/2026 documented as of this encounter Visit Diagnoses Diagnosis Supervision of high risk in third trimester- Primary 29 weeks gestation of Maternal obesity, antepartum Skin rash Rash and other nonspecific skin eruption Headache in , antepartum, third trimester documented in this encounter Care Teams Graphics Coordinator Relationship Specialty Start Date End Date Palak Goldman MD [address] [place] [phone] PCP - General Pediatrics 09/09/24 documented as of this encounter
--- NOTE | 2025-02-23 16:36 | MHC.PC.OV ---
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 Currently lives in an apartment with her boyfriend/father of the baby and feels safe there. They are both monogamous, no concern for STI. 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 She finished high school but has not pursued higher education is not interested at this time but maybe in the future. Denies any alcohol use. No history of cigarette smoking. No illicit drug use or marijuana use. Does report following a healthy diet and reports healthy weight gain per her Ob. She does not exercise except for doing stretches at home. -. Twenty-nine weeks. Past GTT. Following with [facility]. No complications thus far per patient. Blood pressures have been stable, no edema. She is on baby aspirin as well as vitamin she is excited about . Reports most recent Pap smear was without any abnormality Asthma-no recent exacerbation. Rare albuterol use Concerns: None Health maintenance: Mammograms of started at age 39 Colonoscopies to start at age 44 Has not been to the eye doctor-no corrective lenses Dentist twice yearly Wear sun protection. Has not been for skin check Vaccines up-to-date. Planning for Tdap Past medical, surgical, family, social history reviewed ROS: General: No fevers, malaise, unintentional weight loss HEENT: No blurred vision, diplopia. No sore throat, nasal congestion, rhinorrhea, sinus pain, ear pain. No hearing loss Neck - no adenopathy Cardiovascular: No chest pain, palpitations, or leg edema Respiratory: No shortness of breath, wheezing, cough Breast: No pain, palpable lumps, nipple inversion GI: No dysphagia, odynophagia, globus sensation. No abdominal pain, nausea, vomiting, diarrhea, constipation, melena, hematochezia : No dysuria, hematuria, increased urinary frequency, decreased urinary output. ROLL HAULER: No abn vaginal bleeding or discharge MSK: No myalgia, back pain, arthralgias Neuro: No headaches, weakness, paresthesias Psych: no depression/anxiery. No AH/VH. No SI/HI Skin: No rashes or lesions EXAM: Constitutional - Awake and Alert, No apparent distress Eyes - PERRLA, EOMI. Anicteric Ears - external ears normal, canals clear, TMs intact and pearly schwartz with good cone of light Nose- septum midline, nares clear, no sinus tenderness Mouth/throat- mucosa moist, tongue and uvula midline, no erythema/edema or tonsillar adenopathy. Neck-trachea midline, thyroid symmetric without palpable nodules, no adenopathy Cardiovascular - S1S2, RRR, No edema Respiratory - Normal lung expansion, Normal respiratory effort, No respiratory distress, CTA bilaterally Gastrointestinal - NT / ND; +BS; No rebound or guarding - No CVA tenderness Extremities - no calf tenderness bilaterally, no swelling Musculoskeletal - Normal inspection, normal ROM Skin - Warm/Dry, no concerning lesions Neurological - Alert & oriented x3, CN II-XII in tact, 5/5 strength BUE and BLE, 2+ patellar reflexes, sensation intact Psychological - Appropriate affect [facility] Medical History (Updated 02/24/25 @ 09:09 by JORDIN Kirk) Asthma Family History (Updated 02/23/25 @ 16:43 by Keiry Spears MA) Mother No problems noted. Father No problems noted. Social History Housing: Apartment Patient Tobacco Use Status: Never used Tobacco e-Cigarette/Vaping Use: Never Used service: No Current occupational status: employed Cognitive needs: No Hearing needs: No Vision needs: No Questionnaire PHQ-9 Over the last 2 weeks, how often have you been bothered by any of the following problems? 1. Little interest or pleasure in doing things: not at all 2. Feeling down, depressed, or hopeless: not at all 3. Trouble falling or staying asleep, or sleeping too much: not at all 4. Feeling tired or having little energy: not at all 5. Poor appetite or overeating: not at all 6. Feeling bad about yourself - or that you are a failure or have let yourself or your family down: not at all 7. Trouble concentrating on things, such as reading the newspaper or watching television: not at all 8. Moving or speaking so slowly that other people could have noticed. Or the opposite - being so fidgety or restless that you have been moving around a lot more than usual: not at all 9. Thoughts that you would be better off or of hurting yourself in some way: not at all Total score: 0 Source: Developed by Drs. John Cisneros, Daysi Romero, Hipolito Cano and colleagues, with an educational dasia from [employer]. Thrive Questionnaire Date Thrive assessed: 02/23/25 I am a: Patient Within the past 12 months, did the food you bought not last and you didn't have the money to get more?: Never true Within the past 12 months, did you worry whether your food would run out before you got money to buy more?: Never true Do you have trouble paying for medicines?: No Do you have trouble getting transportation to medical appointments?: No Do you have trouble paying your heating and electricity bill?: No Do you have trouble taking care of your child, family member or friend?: No Do you have trouble with day-to-day activities such as bathing, preparing meals, shopping, managing finances, etc.?: No Are you currently unemployed and looking for a job?: No Are you interested in more education?: No THRIVE Score: 0 AUDIT C Alcohol Use Questionnaire (AUDIT-C) 1. How often do you have a drink containing alcohol?: Never 3. How often do you have six or more drinks on one occasion?: Never Total Score: 0 NICK-7 AMB Questionnaire NICK-7 Date NICK - 7 assessed: 02/23/25 Feeling nervous, anxious, or on edge: 0 = Not at all Not being able to stop or control worryin = Not at all Worrying too much about different things: 0 = Not at all Trouble relaxin = Not at all Being so restless that it is hard to sit still: 0 = Not at all Becoming easily annoyed or irritable: 0 = Not at all Feeling afraid as if something awful might happen: 0 = Not at all Total NICK-7 score (0-4 normal; 5-9 mild; 10-14 moderate; 15-21 severe): 0 Source: Developed by Drs. John Cisneros, Daysi Romero, Hipolito Cano and colleagues, with an educational dasia from [employer]. Physical exam (Primary Care) Vital Signs: Last Vital Signs Temp 97.8 F 02/23/25 16:37 Pulse 91 02/23/25 16:37 BP 120/70 02/23/25 16:37 Pulse Ox 98 02/23/25 16:37 Oxygen Delivery Method Room Air 02/23/25 16:37 BMI result Body Mass Index 43.5 Tobacco/Smoking Status: Tobacco use Status Tobacco use date assessed 02/23/25 02/23/25 16:44 Patient Tobacco Use Status Never used Tobacco 02/23/25 16:44 e-Cigarette/Vaping Use Never Used 02/23/25 16:44 PHQ-9: PHQ-9 Score PHQ-9: Total score 0 02/23/25 16:56 Thrive Assessment: Date of Thrive Assessment Date Thrive assessed 02/23/25 02/23/25 16:44 Coding Level of Care Code New Pt Prev Care 18-39yr([id number] Diagnoses Routine medical exam Z00.00 Asthma J45.909 29 weeks gestation of Z3A.29 Assessment & Plan Assessment & Plan (1) Routine medical exam: Code(s): Z00.00 - Encounter for general adult medical examination without abnormal findings Category: Medical Plan: 19-year-old female presenting for annual exam and to establish care. Plan as below (2) Asthma: Code(s): J45.909 - Unspecified asthma, uncomplicated Category: Medical Plan: No recent exacerbation. Albuterol PRN (3) 29 weeks gestation of : Code(s): Z3A.29 - 29 weeks gestation of Category: Medical Plan: Healthy thus far, no complications. Blood pressures are stable. Continue with baby aspirin and vitamins. Follow-up with OB as scheduled. Pap smear up-to-date. Check renal function, CBC, iron panel Plan Follow-up in the office in 1 year, sooner if needed Routine screening labs as ordered below Continue with annual Pap smears. Continue following with OBGYN Continue following for annual skin exams and use sun protection Annual eye exams Wear seat belt in car Recommend regular exercise and healthy diet T spot ordered at the request of patient for employment form Vaccines up-to-date except Tdap and RSV which are recommended given Orders: Orders IRON PROFILE 02/23/25 Z. - Encounter for general adult medical examination without abnormal findings, Z11.9 - Encounter for screening for infectious and parasitic diseases, unspecified Lipid Panel 02/23/25 Z. - Encounter for general adult medical examination without abnormal findings, Z11.9 - Encounter for screening for infectious and parasitic diseases, unspecified Complete Blood Count Auto Diff 02/23/25 Z. - Encounter for general adult medical examination without abnormal findings, Z11.9 - Encounter for screening for infectious and parasitic diseases, unspecified TSH reflex Free T4 02/23/25 Z. - Encounter for general adult medical examination without abnormal findings, Z11.9 - Encounter for screening for infectious and parasitic diseases, unspecified Vitamin D 25-OH Total 02/23/25 Z00. - Encounter for general adult medical examination without abnormal findings, Z11.9 - Encounter for screening for infectious and parasitic diseases, unspecified T Spot TB 02/23/25 Z00. - Encounter for general adult medical examination without abnormal findings, Z11.9 - Encounter for screening for infectious and parasitic diseases, unspecified Medications: Discontinued ibuprofen Discontinued Reason: Patient no longer taking 600 mg PO Q8H PRN 10 tabs 0RF pain prednisone Discontinued Reason: Patient no longer taking 10 mg PO BID 6 tabs 0RF ibuprofen Discontinued Reason: Patient no longer taking 600 mg PO Q8H PRN 20 tabs 0RF pain amoxicillin-pot clavulanate 875-125 mg Discontinued Reason: Patient no longer taking 1 tab PO BID 20 tabs 0RF doxycycline hyclate Discontinued Reason: Patient no longer taking 100 mg PO BID 10 caps 0RF
[2025-02-23 16:37] VITALS: BP 120/70; PULSE 91; TEMP 36.6; O2SAT 98; BMI 43.5
--- OUTSIDE RECORDS SUMMARY | 2025-02-23 20:06 | XMS_ITS | Data Portability ---
Author Organization [place] - [facility], Allergy Address [address] [address] Care Team Providers Care Mechanical Meter Tester Name Role Phone GINA BEARDENJANA Primary Care Provider BYRON COTO Primary Care Provider ELTON YANG Primary Care Provider Assessment Encounter Date Assessment Date Assessment LastModified by Organization Details LastModified Time 03/09/2024 03/09/2024 18-year-old female with allergic rhinitis, right ETD, TMJ, and tinnitus presents for revaluation of the right ear. Otologic exam demonstrated TMs are intact. Right TM with serous effusion. Left TM has a well-aerated middle ear space. She has 2+ inferior turbinate hypertrophy bilaterally. Audiogram today demonstrates mild flat conductive hearing loss with type B tympanometry in the right ear and normal hearing in the left ear. This is similar to her audiogram 6 months ago. Nasopharyngoscopy performed today demonstrated mild inflammation around the right eustachian tube opening, but was otherwise normal. No other nasopharyngeal pathology noted. Recommend Flonase 2 sprays in each nostril daily as needed, reviewed administration. Ordered skin allergy testing. Given the chronicity of the patient's eustachian tube dysfunction, patient is a good candidate for balloon dilation of the right eustachian tube with concurrent tympanostomy tube placement. Alternative treatment options including continued observation and myringotomy with tube placement were discussed as well. I explained the procedure in detail. We discussed the 70-75% success rate in improving or reversing eustachian tube dysfunction. We discussed that there is good three year data showing the assisted success as well. We discussed the risks of surgery, including bleeding, infection, anesthetic risks, patulous eustachian tube, and the small potential for damage to the carotid artery. After full discussion, the patient would like to proceed with right balloon dilation of eustachian tube with concurrent placement of pressure equalization tube on the right. After full discussion, the patient would like to proceed with surgery. I have provided patient with the contact information for my director medical surgical. We will begin the scheduling process and see the patient back at the time of surgery. Patient will not require medical clearance from their primary care provider preoperatively. Robina Amin PA-C functioned as a scribe during this visit. [email or web address] Not available 03/09/2024 21:31:49 06/01/2024 06/01/2024 19yo female presents following right myringotomy tube placement 05/04/[address] Brown. She had the Flu 3 weeks ago, and reports right ear pain and frequent right ear popping since. Endorses left tinnitus is stable. Otologic exam demonstrates right PE tube is well-placed and patent, confirmed with tympanometry. Audiometric testing demonstrated normal hearing. Reviewed tinnitus triggers and return precautions. Follow up in 6 months, or sooner with concerns. [email or web address] Not available 06/01/2024 14:04:10 Plan of Treatment Reminders Order Date Submit Date Provider Last Modified By Organization Details Last Modified Time Details Appointments None recorded. Lab None recorded. Referral None recorded. Procedures allergy testing, skin prick (PROC) 2023 [email or web address] Not available 4 10:37:11 intradermal allergy skin testing (PROC) 2023 024 [email or web address] Not available 4 10:37:17 pulmonary function test procedure (PROC) 2023 [email or web address] Not available 4 10:37:23 pulse oximetry (PROC) 2023 [email or web address] Not available 4 10:37:30 Surgeries nasopharyng oscopy, surgical, with dilation of eustachian tube; unilateral (SURG) 2023 [email or web address] Not available 08:41:05 Imaging None recorded. Medication Orders Flonase Allergy Relief 50 mcg/actuati on nasal spray,suspe nsion [address] [facility] #[id number], [address] [facility], [place], [address], 13:17:38 Patient TargetsNo targets recorded. Patient Instructions Encounter Date Encounter Id Patient Instructions Last Modified By Organization Details Last Modified Time 04/02/2024 [id number] Nursing Documentation for Allergy Testing: Ordering Provider Dr. Brown Weight:lbs:199 kg: PFT Yes With Bronchodilator no approval needed to proceed with allergy testing? Yes Dr. Brown ok'd testing YesHistory of Asthma:Yes Asthma Meds:albuterol Last used: last month Asthma exacerbated by: Chance that : No Fear of needles: No Regular medications reviewed in Computer: Yes Medication allergies: NKDA Antihistamine use: No Medications used: Food Allergies: no Any foods make your mouth feeling itchy: No If yes: History of severe reaction where had to go to ER? 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 Results Created Date Observation Date Name Description Value Unit Range Abnormal Flag Note LastModifiedBy Organization Detail LastModifiedTime 03/12/20 24 03/09/2024 audio gram No observ ation record ed. [email or web address] Not Available 2024 09:11:43 04/02/20 24 flex metry testi ng* No observ ation record ed. [email or web address] Not Available 2023 14:54:17 06/02/19 25 audio gram No observ ation record ed. [email or web address] Not Available 2024 09:07:08 Result Notes None recorded. Problems Name Problem SNOMED Code Status Onset Date Resolution Date Notes Provider Name and Address Organization Details Recorded Time Bilateral disorder of Eustachia n tubes 12920698179 23706 Active 2016 Other specified disorders of Eustachia n tube, bilateral ; Note: Date Diagnosed : 06/26/2016 10:33 AM (H69.83) Not Available [facility] 4 02:29:29 Conductiv e hearing loss, bilateral 273799974 Active 2016 Conductiv e hearing loss, bilateral ; Note: Date Diagnosed : 06/26/2016 10:05 AM (H90.0) Not Available [facility] 4 02:29:27 Dysfuncti on of eustachia n tube 19825613 Active 2016 Eustachia n tube dysfuncti on; Location: bilateral CMS Risk: low risk CMS Treatment : establish ed problem (to examiner) : stable or improved Condition : stable No te: Date Diagnosed : 01/31/2014 12:47 PM (381.81) Not Available [facility] 4 02:29:39 Pain of temporoma ndibular joint 26997168 Active 2022 Temporoma ndibular joint disorders , arthralgi a of temporoma ndibular joint; Location: bilateral Note: Date Diagnosed : 07/31/2022 4:44 PM (524.62) Not Available [facility] 4 02:29:27 Temporoma ndibular joint disorder 32870530 Active 2022 Other specified disorders of temporoma ndibular joint; Location: bilateral Note: Date Diagnosed : 07/31/2022 4:44 PM (M26.69) Not Available [facility] 4 02:29:45 Allergic rhinitis caused by pollen 15269052 Active 2022 Allergic rhinitis due to pollen; Note: Date Diagnosed : 09/18/2022 1:35 PM (J30.1) Not Available [facility] 4 02:29:45 Tinnitus of vascular origin 997120130 Active 2022 Pulsatile tinnitus, bilateral ; Note: Date Diagnosed : 09/18/2022 1:35 PM (H93.A3) Not Available [facility] 4 02:29:27 Bilateral tinnitus 24339623428 02 Active 2023 Tinnitus, bilateral ; Note: Date Diagnosed : 06/03/2023 1:39 PM (H93.13) Not Available [facility] 4 02:29:40 Impacted cerumen in right ear 94394066730 59688 Active 2023 Impacted cerumen, right ear; Note: Date Diagnosed : 06/03/2023 1:39 PM (H61.21) Not Available [facility] 4 02:29:51 Non-suppu rative otitis media 771861128 Active 2023 Unspecifi ed nonsuppur ative otitis media, right ear; Note: Date Diagnosed : 09/06/2023 2:29 PM (H65.91) Not Available [facility] 4 02:29:40 Acute otitis media 1221526 Active 2023 Luanne farooq [place] - [facility] 4 10:53:02 Allergic rhinitis 81804098 Active 2023 ROBINA AMIN PA-C [address] [facility],[place] [address], [place], [address] , [facility] - [facility] 4 13:23:31 Seasonal allergic rhinitis 223359003 Active 2023 ROBINA AMIN PA-C [address] [facility],[place] [address], [place], [address] , [place] - [facility] 4 13:23:31 Non-aller gic rhinitis 11860135427 1 Active 2023 ROBINA AMIN PA-C [address] [facility],[place] [address], [place], [address] , [facility] - [facility] 4 13:23:31 Conductiv e hearing loss of right ear 6944722556 Active 2023 ROBINA RAMIREZ, AUD [address] [facility],[place] [address], [facility], [address] , [place] - [facility] 4 13:40:30 Chronic serous otitis media of right ear 110095369 Active 2023 ROBINA AMIN PA-C [address] [facility],[place] [address], [place], [address] , [place] - [facility] 4 17:28:33 Chronic mucoid otitis media of right middle ear 84814799234 90629 Active 2024 BIJAL BROWN MD [address] [facility],[place] [address], [facility] [place], [address] , [facility] - [facility] 5 08:16:46 Abnormal auditory perceptio n 15534282 Active 2024 STEVEN PALMA, ROSY [address] [facility],[place] [address], [facility] [place], [address] , [facility] - [facility] 5 13:45:24 Tinnitus of left ear 40887538672 06 Active 2024 ROBINA AMIN PA-C [address] [facility],[place] [address], [place], [address] , [facility] - [facility] 5 14:04:14 Problem Notes None recorded. Procedures Surgical History Date Name Laterality Status Provider Name and Address Organization Details Recorded Time 025 Air & Speech Audio with Tymps - 67892, 21353 & 40134 completed ROSY MARCELINO [address],[place] [facility], [place], [address], [facility] - [facility] 06/01/2024 13:44:52 024 Allergy Testing-Full completed BEBO OLIVERA [address], [place], [address], [place] - [facility] 04/02/2024 11:49:33 11/11/2 024 Comp Audio with Tymps - 00713 & 52715 completed ROSY WIGGINS [address] [facility],[place] [address], [place], [address], [facility] - [facility] 03/09/2024 13:40:08 024 Fiberoptic Nasopharyngoscopy completed BIJAL BROWN MD [address] [facility],[place] [address], [place], [address], [facility] - [facility] 03/09/2024 21:30:13 Imaging Results None recorded. Procedure Notes None recorded. Medical Equipment None Reported. Allergies No known drug allergies Medications Name Sig Start Date Stop Date Status Note LastModified by Organization Details LastModified Time Augmentin 875 mg-125 mg tablet Take 1 tablet every 12 hours by oral route for 10 days. 04/02 completed Not Available Not Available Not Available doxycycli ne hyclate 100 mg capsule TAKE 1 CAPSULE BY MOUTH TWICE A DAY 04/02 completed Not Available Not Available Not Available sumatript an 100 mg tablet 04/02 completed Medicati on ID: [id number] B rand Name: sumatrip osborne succinat e Send Method: E-Prescr ibed Sub s Allowed: subs OK Medic ationGen ericName : sumatrip osborne succinat e Not Available Not Available Not Available Medrol (Pérez) 4 mg tablets in a dose pack 06/14 completed Medicati on ID: [id number] P rescribe d By Name: Carmen Jo nd Name: Medrol (Pérez) Se nd Method: E-Prescr ibed Sub s Allowed: subs OK Speci al Instruct ion: take as instruct ed Medic ationGen ericName : Medrol (Pérez) Not Available Not Available Not Available prednison e 20 mg tablet TAKE 3 TABLETS BY MOUTH EVERY DAY FOR 4 DAYS 04/02 completed Not Available Not Available Not Available Ciloxan 0.3 % eye drops 04/02 completed Medicati on ID: [id number] D uration Value: 5 Prescri bed By Name: Carmen Jo nd Name: Ciloxan Send Method: E-Prescr ibed Sub s Allowed: subs OK Speci al Instruct ion: Instill 4 drops twice a day into the affected ear Medi cationGe nericNam e: Ciloxan Not Available Not Available Not Available aspirin 81 mg tablet,de layed release TAKE 1 TABLET BY MOUTH 1 TIME EACH DAY. active Not Available Not Available No t Available acetamino phen 500 mg tablet TAKE 2 TABLETS BY MOUTH EVERY 6 HOURS NEEDED FOR FEVER 04/02 completed Not Available Not Available Not Available ofloxacin 0.3 % ear drops PLACE 4 DROPS INTO THE AFFECTED EAR(S) TWICE DAILY FOR 7 DAYS active Not Available Not Available No t Available fluticaso ne propionat e 50 mcg/actua tion nasal spray,glo pension USE 2 SPRAYS IN EACH NOSTRIL DAILY NEEDED active Not Available Not Available No t Available nortripty line 50 mg capsule TAKE 1 CAPSULE BY MOUTH AT BEDTIME 04/02 completed Not Available Not Available Not Available Ventolin HFA 90 mcg/actua tion aerosol inhaler TAKE 4 PUFFS BY MOUTH EVERY 4 HOURS NEEDED FOR WHEEZE active Not Available Not Available No t Available Vitamin 27 mg iron-0.8 mg tablet TAKE 1 TABLET BY MOUTH 1 TIME EACH DAY. active Not Available Not Available No t Available OptiChamb er [facility] spacer TO BE USED WITH ALBUTERO L FOR WHEEZING active Not Available Not Available No t Available Vitals Date Recorded Body height Body mass index (BMI) Body mass index (BMI) [Percentile] Per age and sex Body weight Provider Name and Address Organization Details Last Updated DateTime 06/01/2024 157.48 cm 40.2 kg/m2 98 % 48709.32 g Katy Lam [facility] 06/01/2024 13:30:28 Date Recorded Body height Body mass index (BMI) [Percentile] Per age and sex Body mass index (BMI) Body weight Provider Name and Address Organization Details Last Updated DateTime 03/09/2024 157.48 cm 96.53 % 34.8 kg/m2 70498.55 g Evelin Pearson [facility] 03/09/2024 12:52:11 Date Recorded Body height Body mass index (BMI) [Percentile] Per age and sex Body mass index (BMI) Body weight Oxygen saturation Oxygen saturation in Arterial blood by Pulse oximetry Heart rate Systolic And Diastolic Provider Name and Address Organization Details Last Updated DateTime 4 157.48 cm 97 % 36.4 kg/m2 10416.8 8 g 98 % 98 % 79 /min 120/76 mm[Hg] SERJIO JARVIS, [facility] [address], [address], [facility] 4 10:40:26 Social History None recorded. Functional Status None recorded. Mental Status None recorded. Family History Nothing Reported. Medical History No medical history recorded. Gynecological HistoryNo gynecological history recorded. Obstetrics History GPAL:G 0 P 0 0 0 0 Past Encounters Encounter ID Performer Location Encounter Start Date Encounter Closed Date Diagnosis/Indication Diagnosis SNOMED-CT Code Diagnosis ICD10 Code Diagnosis IMO Codes Diagnosis Note [id number] BIJAL BROWN MD [facility] [address] [address] 03/09/2024 12:39:17 03/09/2024 14:06:55 Allergic rhinitis caused by pollen 79802667 J30.1 Bilateral tinnitus 92479 13958 102 H93.13 Bilateral disorder of Eustachian tubes 2110902784 522355 H69.83 Conductive hearing loss of right ear 7763910467 H90.2 Audiologic al evaluation results: 03/09/2024 Right ear: Mild flat conductive hearing loss with excellent word recognitio n. Left ear: Normal hearing with excellent word recognitio n. Tympanomet ry: Right Ear:Type B Left Ear:Type A Chronic se pawel otitis media of right ear 407268013 H65.21 [id number] SERJIO [facility]IS [facility] Allergy [address] [place], [place] [address]Diaz ite [address] [place] [address] 04/02/2024 10:17:59 04/02/2024 11:50:13 Allergic rhinitis 04822538 J30.9 [id number] ROBINA AMIN PA-C [facility] [address] [address] 06/01/2024 13:16:07 06/01/2024 14:04:54 Chronic mucoid otitis media of right middle ear 1947071072 659195 H65.31 Abnormal a uditory perception 85755807 H93.299 Audiologic al evaluation results: Right ear: Normal auditory thresholds with excellent speech discrimina tion. Left ear: DNT. Normal 02/2024 Tympanomet ry: Right Ear:Type B Left Ear:DNT Tinnitus of left ear 407 0572286 106 H93.12 Health Concerns Section Related Observation LastModified by Organization Detai ls LastModified Time None Recorded Concern Status LastModified by Organization Details LastModified Time None Recorded Advance Directives Directive None Recorded Payers Insurance Date Sequence Insurance Name Policy Number Policy Osullivan Covered Member ID Osullivan Member ID Guarantor Name 05/15/2024 1 [facility] (MEDICAID HMO) [id number] Agusto Quezada [id number] Agusto Amaro 10/06/2024 1 MEDICAID-[place]: [facility] Agusto Quezada [id number] Agusto Amaro 05/29/2024 2 [facility] Agusto Quezada [id number] Agusto Amaro 07/16/2024 1 [facility] NET PLAN (MEDICAID HMO) [id number] Agusto Amaro [id number] Agusto Amaro 12/10/2024 1 [facility] (HMO) [id number] Agusto Amaro [id number] Agusto Amaro 09/24/2024 2 [facility] Agusto Amaro [id number] Agusto Amaro 12/10/2024 2 [facility] PLAN - [facility] (MEDICAID REPLACEMENT - HMO) [id number] Agusto Amaro [id number] Agusto Amaro Notes Date Note Type Note Provider Name and Address Organization Details Recorded Time 03/09/2024 text/html ROS as noted in the HPI 18-year-old female with allergic rhinitis, right ETD, TMJ, and tinnitus presents for evaluation of the ears. Reports right ear blockage and constant high-pitched and pulsatile tinnitus for one year. Reports no change in hearing otherwise. Denies otalgia, otorrhea, or change in tinnitus. Endorses Qtip use weekly. Reports Flonase improved her otologic symptoms in the past, but recent trial of Flonase over the past 6 months was unsuccessful in resolving her right sided effusion.. BIJAL BROWN MD [address] [facility],[address], [address], [facility] 03/09/2024 21:33:52 06/01/2024 text/html ROS as noted in the HPI 19yo female presents following right myringotomy tube placement 05/04/[address] rBown. She had the Flu 3 weeks ago, and reports right ear pain and frequent right ear popping. Endorses chronic left tinnitus. Denies otorrhea or hearing changes otherwise. JUNITO RASCON MD [address] [place] [address],[place] [address], [place], [address], [facility] 06/01/2024 17:19:34 OBGyn Episode No OBEpisode recorded.
--- OUTSIDE RECORDS SUMMARY | 2025-02-23 20:06 | XMS_ITS | Encounter Summary ---
Author Organization [employer] Address [address] [place] [address] Care Team Providers Care Consumer Affairs Manager Name Role Phone Palak Goldman MD Primary Care Provider [phone] Reason for Visit * Reason Onset Date Comments Forms/questionnaires 02/08/2025 Encounter Details Date Type Department Care Team ([facility] Contact Info) Description 02/08/2025 Telephone Obstetrics and Gynecology - [facility] [address] [place] [phone] Leilani Ritter, [address] [phone] Social History Tobacco Use Types Packs/Day Years [...] on file documented as of this encounter Progress Notes * Екатерина Shrestha [place] - 02/23/2025 8:59 AM EDT Form filled out and sent to provider for signature. * Giselle Holbrook - 02/08/2025 10:22 AM EDT FORMS TO BE COMPLETED IN THE PRACTICE: Type of form: [facility] Release of information form ( all sections) has been completed and Signed. Yes For what medical problem does the patient need this form completed? Is patients name on the form? No Is the patients portion (demographics) of the form completed? Yes Did the patient sign the form? No Which provider is form to be completed by? Leilani Ritter CNM Patient requesting the form be: Will carpentry supervisor If form is not to be picked up by patient has patient been informed that RELEASE OF INFO form must be signed by them for alternate person to pickling grader form? No Patient has been informed that completion will be in 7-10 business days: Yes documented in this encounter Plan of Treatment Upcoming Encounters Date Type Department Care Team (Late st Contact Info) Description 03/09/2025 8:30 AM EST Routine Obstetrics and Gynecology - [facility] [address] [place] [phone] Ying Wells, [address], [place] 03/15/2025 10:00 AM EST Ancillary Procedure Maternal Medicine - [address] [address] 03/22/2025 1:00 PM EST Routine Obstetrics & Gynecology [address] [address] Shy Theodore CNM [address] [place] [address] 04/05/2025 11:15 AM EST Routine Obstetrics & Gynecology [address] [address] Shy Theodore CNM [address] [place] [address] 04/12/2025 1:15 PM EST Routine Obstetrics & Gynecology [address] [address] Shy Theodore [facility] [address] [place] [address] 04/19/2025 1:00 PM EST Routine Obstetrics & Gynecology - [address] [phone] Shy Theodore [address] [address] 04/27/2025 1:30 PM EST [facility] [address] [place] [address] Leilani Ritter [address] [address] 05/03/2025 11:15 AM EST Routine Obstetrics & Gynecology - [address] [phone] Shy Theodore [address] [address] documented as of this encounter Visit Diagnoses Not on filedocumented in this encounter Care Teams Consumer Affairs Manager Relationship Specialty Start Date End Date Palak Goldman MD [address] [place] [address] PCP - General Pediatrics 09/09/24 documented as of this encounter
--- OUTSIDE RECORDS SUMMARY | 2025-02-23 20:06 | XMS_ITS | Encounter Summary ---
Author Organization [facility] Address [address] [place] [address] Care Team Providers Care Tin Stacker Name Role Phone Palak Goldman MD Primary Care Provider [phone] Encounter Details Date Type Department Care Team (Late Contact Info) Description 02/08/2025 Results Follow-Up Obstetrics and Gynecology - [facility] [address], [place] [phone] Vanessa Vallejo RN Social History Tobacco Use Types Packs/Day Years [...] on file documented as of this encounter Plan of Treatment Upcoming Encounters Date Type Department Care Team (Late Contact Info) Description 03/09/2025 8:30 AM EST Routine Obstetrics [facility]necology - [facility] [address] [place], [place] [phone] Ying Wells DO [address] [facility] [place] 03/15/2025 10:00 AM EST Ancillary Procedure Maternal Medicine [address] [phone] 03/22/2025 1:00 PM EST Routine Obstetrics & Gynecology - [address] [place] [address] Shy Theodore [address] [address] 04/05/2025 11:15 AM EST Routine Obstetrics & Gynecology [address] [phone] Shy Theodore [address] [address] 04/12/2025 1:15 PM EST Routine Obstetrics & Gynecology [address] [address] Shy Theodore [address] [address] 04/19/2025 1:00 PM EST Routine Obstetrics & Gynecology [address] [phone] Shy Theodore [address] [address] 04/27/2025 1:30 PM EST Routine Obstetrics and Gynecology - [facility] [address] [place] [address] Leilani Ritter, [address] [address] 05/03/2025 11:15 AM EST Routine Obstetrics & Gynecology [address] [address] Shy Theodore [address] [address] documented as of this encounter Visit Diagnoses Diagnosis Maternal obesity, antepartum- Primary documented in this encounter Care Teams Tin Stacker Relationship Specialty Start Date End Date Palak Goldman MD [address] [place] [phone] PCP - General Pediatrics 09/09/24 documented as of this encounter
--- OUTSIDE RECORDS SUMMARY | 2025-02-23 20:06 | XMS_ITS | Clinical Summary ---
Author Organization [address] Address [address] [place] [phone] Phone Care Team Providers Care Home Health Caregiver Name Role Phone Palak Goldman MD Primary Care Provider Allergies No known active allergies Medications Ventolin HFA 90 mcg/actuation inhaler Inhale 2 puffs by mouth 4 (four) times a day. Active vitamin iron fum-folic acid 27-0.8 mg per tabletIndicatio ns:Encounter for supervision of normal first in first trimester Take 1 tablet by mouth 1 (one) time each day. 90 each 3 5 09/24/19 26 Active aspirin 81 mg EC tablet Take 1 tablet (81 mg total) by mouth 1 (one) time each day. 60 tablet 3 5 02/23/20 26 Active hydrocortisone acetate 0.5 % cream Apply topically 2 (two) times a day. 30 g 5 02/23/20 26 Active aspirin 81 mg EC tablet Take 1 tablet (81 mg total) by mouth 1 (one) time each day. 60 tablet 3 5 02/21/20 25 Discontinu ed(Reorder ) Active Problems Problem Noted Date Diagnosed Date Extrinsic asthma with acute exacerbation 025 Carrier of spinal muscular atrophy 10/05/2024 Overview (10/05/2024): Horizon 14 result INCREASED CARRIER RISK for Spinal Muscular Atrophy: Two copies of the SMN1 gene detected .Positive for the g.93231Y>G variant. Based on this individual's reported ethnicity, the individual has a 1 in 140 risk To be a silent (2+0) carrier for SMA. If this individual's partner is a carrier for Spinal Muscular Atrophy, they may be at increased risk to have a child with this condition. Carrier screening for this individual's partner is suggested. Order for partner Patric Sanchez placed in [employer]'s website 10/05/24 Assessment & Plan (11/17/2024 2:34 PM EDT): FOB- no insurance currently. Forms completed and kit provided, can be completed once he has his insurance, Encounter for supervision of normal first in first trimester 09/23/2024 Overview (02/11/2025): 1. [facility] site: [facility]: [address] [place] [address] ([phone]) 2. Delivery site: [facility] 3. Mobile Mommas: No 4. Dating criteria: LMP - changed based on 09/25/34 u/s (S<D). EDC now 05/04/25 5. Blood type: A-Positive 6. Genetic screening: Date: Result: Panorama: Low risk panorama, XX Horizon: INCREASED CARRIER RISK for Spinal Muscular Atrophy: Two copies of the SMN1 gene detected .Positive for the g.71073F>G variant. Based on this individual's reported ethnicity, [...] 6. GBS: Date: 7. FOB name: Patric Pereira 8. Plans A. Epidural or other pain management - no B. Labor support identified - Patric Machuca. Tdap - Date:02/11/25 Flu - Date: D. Breast or Bottle feed: E. Baby's name -Miranda Trevino Circumcision - no 9. Hospital Course: Maternal obesity, antepartum 09/23/2024 Overview (02/22/2025): Pt barely passed 1hr GTT at 28w - recommend diet counseling Prepre.19 HgbA1C and 1 hour GTT at initial [...] BMI of 50 by [place]wks [place] [facility] [place] prophylaxis- Lovenox if CS and BMI >35 Assessment & Plan (11/17/2024 2:35 PM EDT): Taking pnv and baby asa as prescribed. History of asthma 09/23/2024 Abnormal auditory perception 06/01/2024 Tinnitus of left ear 06/01/2024 Chronic mucoid otitis media of right ear 025 Allergic rhinitis 03/09/2024 Non-allergic rhinitis 03/09/2024 Chronic serous otitis media of right ear 024 Conductive hearing loss of right ear 03/09/2024 Acute otitis media 09/11/2023 Non-suppurative otitis media 09/06/2023 Overview (02/16/2025): Unspecified nonsuppurative otitis media, right ear; Note: Date Diagnosed: 09/06/2023 2:29 PM (H65.91) Bilateral tinnitus 06/03/2023 Overview (02/16/2025): Tinnitus, bilateral; Note: Date Diagnosed: 06/03/2023 1:39 PM (H93.13) Impacted cerumen of right ear 06/03/2023 Overview (02/16/2025): Impacted cerumen, right ear; Note: Date Diagnosed: 06/03/2023 1:39 PM (H61.21) Tinnitus of vascular origin 09/18/2022 Overview (02/16/2025): Pulsatile tinnitus, bilateral; Note: Date Diagnosed: 09/18/2022 1:35 PM (H93.A3) Allergic rhinitis due to pollen 09/18/2022 Overview (02/16/2025): Allergic rhinitis due to pollen; Note: Date Diagnosed: 09/18/2022 1:35 PM (J30.1) Arthralgia of temporomandibular joint 07/31/2022 Overview (02/16/2025): Temporomandibular joint disorders, arthralgia of temporomandibular joint; Location: bilateral Note: Date Diagnosed: 07/31/2022 4:44 PM (524.62) Temporomandibular joint disorder 07/31/2022 Overview (02/16/2025): Other specified disorders of temporomandibular joint; Location: bilateral Note: Date Diagnosed: 07/31/2022 4:44 PM (M26.69) Dysfunction of eustachian tube 01/31/2017 Overview (02/16/2025): Eustachian tube dysfunction; Location: bilateral CMS Risk: low risk CMS Treatment: established problem (to examiner): stable or improved Condition: stable Note: Date Diagnosed: 01/31/2014 12:47 PM (381.81) Conductive hearing loss, bilateral 06/26/2016 Overview (02/16/2025): Conductive hearing loss, bilateral; Note: Date Diagnosed: 06/26/2016 10:05 AM (H90.0) Other specified disorders of eustachian tube, bi lateral 06/26/2016 Overview (02/16/2025): Other specified disorders of Eustachian tube, bilateral; Note: Date Diagnosed: 06/26/2016 10:33 AM (H69.83) Estimated Date of Delivery Comme nts Yes 05/04/2025 Based on Ultraso und Encounters Date Type Department Care Team Description 02/22/2025 11:00 AM EDT Routine Obstetrics & Gynecology - [address] [phone] Shy Theodore CNM Supervision of high risk in third trimester (Primary Dx); 29 weeks gestation of ; Maternal obesity, antepartum; Skin rash; Headache in , antepartum, third trimester 02/11/2025 9:00 AM EDT Routine Obst[facility]s [facility] - [facility] [address] [place], [place] [phone] Leilani Ritter CNM 28 weeks gestation of (Primary Dx); Normal first in third trimester; Encounter for supervision of normal first in first trimester 02/08/2025 Results Follow-Up Obstetrics [facility]necology - [facility] [address] [place], [place] [phone] Vanessa Vallejo RN 02/08/2025 Telephone Obstetrics and Gynecology - [facility] [address] [place], [place] [phone] Leilani Ritter CNM 01/14/2025 8:45 AM EDT Routine Obstetrics and Gynecology - [facility] [address] [place] [phone] Ying Wells DO 24 weeks gestation of (Primary Dx); Moderate persistent extrinsic asthma with acute exacerbation; Maternal obesity, antepartum 01/12/2025 11:00 AM EDT Ancillary Procedure Maternal Medicine - [address] [phone] Obesity affecting in second trimester; Other obesity due to excess calories affecting in third trimester; Encounter for screening for malformation 12/18/2024 8:00 AM EDT Ancillary Procedure Maternal Medicine - [address] [phone] Encounter for anatomic survey; Obesity affecting in second trimester; Other obesity due to excess calories affecting in third trimester; Encounter for screening for malformation; Other obesity due to excess calories affecting in second trimester; Encounter for screening for cervical length 12/17/2024 10:15 AM EDT Routine Obstetrics and Gynecology - [facility] [address] [place] [phone] Alize Bowen, JESS Second trimester (Primary Dx); Maternal obesity, antepartum; 20 weeks gestation of from Last 3 Months Immunizations Immunization Administration Dates Next Due HPV 9-valent (Gardisil) 9yo to less than 46yo Influenza trivalent, 0.5mL, preservative free (Fluarix; FluLaval; Fluzone) ages 6mo and older (Afluria) 3 years and older 05/11/2024 Meningococcal MCV4P 01/31/2021 Tdap Tetanus diptheria acell ular pertussis (Boostrix; Adacel) 7yo and older 02/11/2025 Surgical History Surgery Date Site/Laterality Comments TONSILLECTOMY at 7 yo ADENOIDECTOMY 04/29/2012 - 04/28/2013 TYMPANOSTOMY TUBE PLACEMENT 04/29/2024 - 04/28/2025 Simi collins Medical History Medical History Date Comments Asthma Family History Medical History Relation Name Comments Asthma Father Diabetes type II Half-Brother 1 Joaquin No Known Problems Half-Brother 2 Javien No Known Problems Half-Brother 3 Reymundo No Known Problems Half-Sister 1 Alexandru No Known Problems Half-Sister 2 Jiali No Known Problems Half-Sister 3 Jeryra No Known Problems Half-Sister 4 Gayle Asthma Half-Sister 5 Navea Kidney disease Maternal Grandfather No Known Problems Maternal Grandmother No Known Problems Mother Arthritis Paternal Grandfather Arthritis Paternal Grandmother Relation Name Status Comments Father Alive Half-Brother 1 Joaquin Alive Half-Brother 2 Javien Alive Half-Brother 3 Reymundo Alive Half-Sister 1 Alexandru Alive Half-Sister 2 Jiali Alive Half-Sister 3 Jeryra Alive Half-Sister 4 Gayle Alive Half-Sister 5 [...] Estimated Date of Delivery 09/23/2024 - Present (02/23/2025) 05/04/2025 (set by Vanessa Vallejo RN on [...] Vitals Pregravid Weight Height TWG (As of 02/23/2025) Pregrav id BMI 98 kg (216 lb) 1.575 m (62 ) 9.208 kg (20 lb 4.8 oz) 3 9.50 Notes Progress Notes - Routine Pre - 02/22/2025 - GA:29w6d 02/22/2025 - 29w6d - hSy Theodore CNM Subjective Chief Complaint Patient presents with Routine [...] u/s for 32wks to schedule F/u routinely 02/22/2025 - w6d - Melony Portillo MA Ob f/up c/o headaches with spots in vision and left wrist rash Progress Notes - Routine Pre - 02/11/2025 - GA:28w2d 02/11/2025 - 28w2d - Leilani Ritter CNM Subjective Chief Complaint Patient presents with Routine Visit Agusto Amaro is a 19 y.o. at 28w2d with a working estimated date of delivery of 05/04/2025, by Ultrasound who presents for a routine visit. She denies vaginal bleeding, leakage of fluid, decreased movements, or contractions. No concerns Review of Systems The following portions of the patient's chart were reviewed in this encounter and updated as appropriate: Allergies Meds Objective Physical Exam Weight: 107 kg (235 lb) Expected Total Weight Gain: 5 kg (11 lb)-9 kg (19 lb) Pregravid BMI: 39.50 BP: 111/71 (P: 90) OBGyn Exam Labs Hemoglobin Date Value Ref Range Status 02/08/2025 12.2 11.5 - 16.0 g/dL Final Hematocrit Date Value Ref Range Status 02/08/2025 36.7 35.0 - 47.0 % Final ABO Group Date Value Ref Range Status 09/23/2024 A Final Rh Type Date Value Ref Range Status 09/23/2024 Positive Final Hepatitis B Surface Ag Date Value Ref Range Status 09/23/2024 Negative Negative Final 28 weeks gestation of (Primary) Normal first in third trimester Other orders - Tdap Tetanus diptheria acellular pertussis (Boostrix; Adacel) 7yo and older Progress Notes - Routine Pre - 01/14/2025 - GA:24w2d 01/14/2025 - w2d - Ying Vann DO Agusto is a 19yo G1 here with her partner for MASSIMO visit with no concerns. She reports good FM, no VB or LOF. She does report that she was seen 5 days ago at [place] [facility] for an asthma exacerbation. She was treated, given and inhaler and prednisone. She was instructed to call here to be sure that the prednisone was safe to take in , but she never called and never started it. She has needed her inhaler at night 3-4 times this week. Visit Vitals BP 103/72 Wt 102 kg (224 lb 12.8 oz) LMP 06/28/2024 (Exact Date) BMI 41.12 kg/m OB Status Smoking Status Never BSA 2.01 m FH: 24cm FHT: 140bpm by doppler Commended Agusto for seeking emergency treatment when she needed it. Advised Agusto to make an appt with her PCP for ER follow up and management of what sounds like poorly controlled asthma. I am not clear on the clinical benefit of starting the prednisone now 5 days after the exacerbation. Explained the importance of letting the office know when she requires treatment in an ER so we can advise her appropriately on medications and any need to come in for a visit. She expressed understanding. Follow up here in 1 mo or sooner with any concerns. 3rd trimester labs ordered, pt understands to complete in 2-4w. Ying Wells DO Progress Notes - Routine Pre - 12/17/2024 - GA:20w2d 12/17/2024 - 20w2d [...] boby - 11/17/2024 - GA:16w0d 11/17/2024 - - Vanessa Vallejo RN Order form and test kit for partner Horizon testing given to pt/partner. 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 N/A Do you know what your [...] of estimated date of delivery No Thalassemia (Danish, Argentine, Mediterranean, or background): MCV less than 80 No Neural tube defect (Meningomyelocele, Spina bifida, or Anencephaly) No Congenital heart defect No Down syndrome No Sohan-Sachs (Ashkenazi Druze, Cajun, English [place]) No Celio disease (Ashkenazi Druze) No Familial dysautonomia (Ashkenazi Druze) No Sickle cell disease or trait () No Hemophilia or other blood disorders No Muscular dystrophy No Cystic fibrosis No Aitkin's chorea No Intellectual disability and/or autism No [...] Amaro has also been informed of the library customer service clerk provider recommendation for first trimester nuchal lucency [...] Genetic Testing has been reviewed and the [employer] information sheet has been provided to the [...] For Horizon Carrier Screening, if patient has [employer], [facility] or [employer] insurances: Not Applicable Electronically signed by: Honey Galvan RN 09/23/24 2:33 PM EDT Last Filed Vital Signs Vital Sign Reading Time Taken Comments Blood Pressure 100/60 02/22/2025 10:52 AM EDT p 90 Pulse 74 12/17/2024 10:25 AM EDT Temperature - - Respiratory Rate 16 12/17/2024 10:25 AM EDT Oxygen Saturation - - Inhaled Oxygen Concentration - - Weight 107 kg (236 lb 4.8 oz) 02/22/2025 10:52 A M EDT Height 157.5 cm (5' 2 ) 09/23/2024 1:38 PM EDT Body Mass Index 43.22 09/23/2024 1:38 PM EDT Plan of Treatment Upcoming Encounters Date Type Department Care Team (Late st Contact Info) Description 03/09/2025 8:30 AM EST Routine Obstetrics and Gynecology - [facility] [address] [place] [phone] Ying Wells DO [address] [place], [place] 03/15/2025 10:00 AM EST Ancillary Procedure Maternal Medicine - [address] [phone] 03/22/2025 1:00 PM EST Routine Obstetrics & Gynecology [address] [phone] Shy Theodore CNM [address] [place] [phone] 04/05/2025 11:15 AM EST Routine Obstetrics & Gynecology [address] [phone] Shy Theodore CNM [address] [place] [address] 04/12/2025 1:15 PM EST Routine Obstetrics & Gynecology [address] [phone] Shy Theodore CNM [address] [place] [address] 04/19/2025 1:00 PM EST Routine Obstetrics & Gynecology - [address] [phone] Shy Theodore, [facility] [address] [place] [address] 04/27/2025 1:30 PM EST [facility] [address] [place] [phone] Leilani Ritter, [address] [phone] 05/03/2025 11:15 AM EST Routine Obstetrics & Gynecology [address] [phone] Shy Theodore, [address] [phone] Health Maintenance Due Date Last Done Comments Meningococcal B Vaccine (1 o f 2 - Standard) 2020 HPV Vaccines (2 - 3-dose series) 02/28/2021 01/31/2021 Hepatitis B Vaccines (1 of 3 - 19+ 3-dose series) 2023 Pneumococcal Vaccine: Pediatrics (0 to 5 Years) and At-Risk Patients (6 to 49 Years) (1 of 2 - PCV) 2023 Depression Screening 04/29/2024 Annual Well Child Visit (3-2 1 years old) 09/09/2024 Cholesterol Screening (Lipid Panel) 09/09/2024 Social Influencers of Health Screening 09/09/2024 COVID-19 Vaccine ( - 2024-2 6 season) 2024 05/24/2021, 11/21/2020, 10/31/2020 Influenza Vaccine (#1) 2024 05/11/2024 RSV Immunization Adult Patients (1 - Risk 1-dose series) 03/09/2025 Gonorrhea/Chlamydia Screening 09/29/2025 09/29/2024 DTaP,Tdap,and Td Vaccines (2 - Td or Tdap) 02/11/2035 02/11/2025 Meningococcal ACWY Vaccine Completed 01/31/2021 HIV Screening [...] Procedure Name Priority Date/Time Associated Diagnosis Comments GTT GESTATIONAL 1 HOUR Routine 12:26 PM EDT 24 weeks gestation of GLUCOSE TOLERANCE TEST, 1H GESTATION Routine 02/08/2025 12:26 PM EDT 24 weeks gestation of CBC WITH AUTO DIFFERENTIAL Routine 02/08/2025 12:24 PM EDT 24 weeks gestation of CBC AND DIFFERENTIAL Routine 02/08/2025 12:24 PM EDT 24 weeks gestation of TREPONEMA PALLIDUM ANTIBODY WITH REFLEX TO RPR AND PARTICLE AGGLUTINATION Routine 02/08/2025 12:22 PM EDT 24 weeks gestation of US OB FOLLOWUP PER FETUS Routine 01/12/2025 10:57 AM EDT Obesity affecting in second trimester Other obesity due to excess calories affecting in third trimester Encounter for screening for malformation EXTERNAL XRAY REPORT 01/09/2025 EXTERNAL XRAY REPORT 01/09/2025 US OB TRANSVAGINAL Routine 12/18/2024 9: 01 [...] second trimester Encounter for screening for malformation CHLAMYDIA TRACHOMATIS AND NEISSERIA GONORRHOEAE PCR Routine [...] Recently Relevant to Health Maintenance Results * GTT gestational 1 hour (02/08/2025 12:26 PM EDT) Glucose, 1 HR Gestational 139 <140 mg/dL LAB CHEMISTRY METHOD 02/08/2025 3:23 PM EDT [facility] Blood Venous blood specimen / Unknown Venipuncture / Unknown 02/08/2025 12:26 PM EDT 02/08/2025 12:26 PM EDT Narrative [facility] - 02/08/2025 3:23 PM EDT Gestational Diabetes Challenge Reference Range: 1 hour Glucose <140 mg/dL us Ying Wells DO LAB BLOOD ORDERABLES Final Re sult [facility] [address] [place] [address], [place] [phone] * (ABNORMAL) CBC auto differential (02/08/2025 12:24 PM EDT) WBC 10.7 4.8 - 10.8 K/mcL LAB HEMETOLOGY METHOD 02/08/2025 1:55 PM EDT [facility] RBC 4.00 3.80 - 4.80 M/mcL LAB HEMETOLOGY METHOD 02/08/2025 1:55 PM EDT [facility] Hemoglobin 12.2 11.5 - 16.0 g/dL LAB HEMETOLOGY METHOD 02/08/2025 1:55 PM EDT [facility] Hematocrit 36.7 35.0 - 47.0 % LAB HEMETOLOGY METHOD 02/08/2025 1:55 PM EDT [facility] MCV 90.8 79.0 - 98.0 FL LAB HEMETOLOGY METHOD 02/08/2025 1:[facility] MCH 30.2 27.0 - 32.0 pcg LAB HEMETOLOGY METHOD 02/08/2025 1:55 PM [facility] MCHC 33.2 32.0 - 37.0 g/dL LAB HEMETOLOGY METHOD 02/08/2025 1:55 PM EDT [facility] RDW 13.5 11.0 - 15.0 % LAB HEMETOLOGY METHOD 02/08/2025 1:55 PM EDT [facility] Platelets 247 130 - 400 K/mcL LAB HEMETOLOGY METHOD 02/08/2025 1:55 PM [facility] MPV 10.5 7.0 - 11.0 FL LAB HEMETOLOGY METHOD 02/08/2025 1:55 PM [facility] NRBC 0.0 <1.0 % LAB HEMETOLOGY METHOD 02/08/2025 1:55 PM EDT [facility] NRBC Absolute 0.00 <0.10 K/mcL LAB HEMETOLOGY METHOD 02/08/2025 1:55 PM EDT [facility] Neutrophils Relative 77.2 % LAB HEMETOLOGY METHOD 02/08/2025 1:55 PM EDT [facility] Lymphocytes Relative 15.2 % LAB HEMETOLOGY METHOD 02/08/2025 1:55 PM EDT [facility] Monocytes Relative 5.9 % LAB HEMETOLOGY METHOD 02/08/2025 1:55 PM EDT [facility] Eosinophils Relative 0.2 % LAB HEMETOLOGY METHOD 02/08/2025 1:55 PM EDT [facility] Basophils Relative 0.3 % LAB HEMETOLOGY METHOD 02/08/2025 1:55 PM EDT [facility] Immature Granulocytes Relative 1.2 % LAB HEMETOLOGY METHOD 02/08/2025 1:55 PM EDT [facility] Neutrophils Absolute 8.27(H) 1.50 - 7.00 K/mcL LAB HEMETOLOGY METHOD 02/08/2025 1:55 PM EDT [facility] Lymphocytes Absolute 1.63 1.00 - 5.00 K/mcL LAB HEMETOLOGY METHOD 02/08/2025 1:55 PM EDT [facility] Monocytes Absolute 0.63 0.20 - 1.00 K/mcL LAB HEMETOLOGY METHOD 02/08/2025 1:55 PM EDT [facility] Eosinophils Absolute 0.02 0.00 - 0.50 K/mcL LAB HEMETOLOGY METHOD 02/08/2025 1:55 PM EDT [facility] Basophils Absolute 0.03 0.00 - 0.20 K/mcL LAB HEMETOLOGY METHOD 02/08/2025 1:55 PM EDT [facility] Immature Granulocytes Absolute 0.13(H) 0.00 - 0.03 K/mcL LAB HEMETOLOGY METHOD 02/08/2025 1:55 PM [facility] Blood Venous blood specimen / Unknown Venipuncture / Unknown 02/08/2025 12:24 PM EDT 02/08/2025 12:24 PM EDT Ying Wells DO LAB BLOOD ORDERABLES Final Re sult Performing Organization Address [facility] de Phone Number [facility] [address] [place] [address], * Treponema pallidum antibody with reflex to RPR and particle agglutination (02/08/2025 12:22 PM EDT) T. Pallidum Antibodies Negative Negative LAB CHEMISTRY METHOD 02/08/2025 3:07 PM EDT [facility] Blood Venous blood specimen / Unknown Venipuncture / Unknown 02/08/2025 12:22 PM EDT 02/08/2025 12:22 PM EDT Ying Wells LAB BLOOD ORDERABLES Final Re sult Performing Organization Address [facility] de Phone Number [facility] [address] [place] [address], * US OB Followup per Fetus (01/12/2025 10:57 AM EDT) Anatomical Region Laterality Modality Body Ultrasound 01/12/2025 10:5 7 AM EDT Narrative 01/12/2025 1:54 PM EDT OBSTETRICS REPORT (Signed Final 01/12/2025 01:54 pm) PATIENT INFO: ID #: [id number] : [birth year] (19 yrs)(F) Name: AGUSTO Visit Date: 01/12/2025 10:57 am PREM PERFORMED BY: Attending: Shazia Rodríguez MD Performed By: August Contreras RDMS Referred By: Ying Wells DO Ref. Address: [address] [place] [address] Location: [facility] SERVICE(S) PROVIDED: [place] [id number] INDICATIONS: Obesity complicating , second O99.212 trimester Morbid obesity E66.01 Encounter for other screening Z36.2 follow-up 24 weeks gestation of Z3A.24 TECHNIQUE/SCAN QUALITY: Technique: Transabdominal Scan Satisfactory Quality: OB HISTORY: : 1 Term: 0 VITAL SIGNS: Weight (lb) Height BMI 219 5'2 40.05 EVALUATION: Number Of Fetuses: 1 Cardiac Activity: Observed Presentation: Cephalic Placenta Location: Anterior Appearance: Grade 1 Relation to CVX: No previa Amniotic Fluid YANIV FV: Within Normal Limits Comment: A >2 x 2 cm pocket of fluid is noted. BIOMETRY: BPD: 58.1 mm G.Age: 23w 6d 36 % HC: 220.4 mm G.Age: 24w 1d 35 % AC: 194.2 mm G.Age: 24w 1d 45 % FL: 42.1 mm G.Age: 23w 5d 29 % CI: 70.61 % 70 - 86 FL/HC: 19.1 % 18.7 - 20.9 HC/AC: 1.13 1.05 - 1.21 FL/BPD: 72.5 % 71 - 87 FL/AC: 21.7 % 20 - 24 Est. FW: 645 gm 1 lb 7 oz 39 % GESTATIONAL AGE: LMP: 28w 2d Date: 06/28/24 ISAURA: 04/04/25 U/S Today: 24w 0d ISAURA: 05/04/25 Best: 24w 0d Det. By: U/S Sven Azar L ISAURA: 05/04/25 (09/25/24) DETAILED ANATOMY: Head / Neck Cranial Vault: Normal appearance Face Face Profile: Normal appearance Nasal Bone: Normal appearance Coronal Face: Normal appearance Lips: Normal appearance Nose: Normal appearance Heart Cardiac Activity: Observed Cardiac Rhythm: Normal appearance 4 Chamber View: Normal appearance R. Outflow Tract: Normal appearance L. Outflow Tract: Normal appearance Interventr. Septum: Normal appearance Ductal Arch: Normal appearance Thorax Diaphragm: Normal appearance Abdomen Stomach: Normal appearance Abdominal Wall: Normal appearance Urinary Bladder: Normal appearance R. Kidney: Normal appearance L. Kidney: Normal appearance COMMENTS: Ms. Amaro is being seen to complete the detailed ultrasound by obtaining views of the heart and face. - Her medical history is significant for asthma. - She takes low-dose aspirin. - She had cell free DNA screening performed. Results are low-risk for all conditions assessed. Ultrasound findings: Today the estimated weight is 645 grams, at the 39th percentile. Views of the 4ch, septum, LVOT, Ductal Arch, lips and nose and abdominal cord insertion were obtained and appear normal. This completes the detailed ultrasound. - Plan: Follow up growth at 32 weeks is recommended for BMI >40. Shazia Rodríguez MD Electronically Signed Final Report 01/12/2025 01:54 pm Procedure Shazia Kurtz MD - 01/12/2025 OBSTETRICS REPORT (Signed Final 01/12/2025 01:54 pm) PATIENT INFO: ID #: [id number] : [birth year] (19 yrs)(F) Name: AGUSTO Visit Date: 01/12/2025 10:57 am PREM PERFORMED BY: Attending: Shazia Rodríguez MD Performed By: August Contreras RDMS Referred By: Ying Roy. Address: [address] [place] [address] Location: [facility] SERVICE(S) PROVIDED: [place] [address] INDICATIONS: Obesity complicating , second O99.212 trimester Morbid obesity E66.01 Encounter for other screening Z36.2 follow-up 24 weeks gestation of Z3A.24 TECHNIQUE/SCAN QUALITY: Technique: Transabdominal Scan Satisfactory Quality: OB HISTORY: : 1 Term: 0 VITAL SIGNS: Weight (lb) Height BMI 219 5'2 40.05 EVALUATION: Number Of Fetuses: 1 Cardiac Activity: Observed Presentation: Cephalic Placenta Location: Anterior Appearance: Grade 1 Relation to CVX: No previa Amniotic Fluid YANIV FV: Within Normal Limits Comment: A >2 x 2 cm pocket of fluid is noted. BIOMETRY: BPD: 58.1 mm G.Age: 23w 6d 36 % HC: 220.4 mm G.Age: 24w 1d 35 % AC: 194.2 mm G.Age: 24w 1d 45 % FL: 42.1 mm G.Age: 23w 5d 29 % CI: 70.61 % 70 - 86 FL/HC: 19.1 % 18.7 - 20.9 HC/AC: 1.13 1.05 - 1.21 FL/BPD: 72.5 % 71 - 87 FL/AC: 21.7 % 20 - 24 Est. FW: 645 gm 1 lb 7 oz 39 % GESTATIONAL AGE: LMP: 28w 2d Date: 06/28/24 ISAURA: 04/04/25 U/S Today: 24w 0d ISAURA: 05/04/25 Best: 24w 0d Det. By: U/Rocky Ledesma ISAURA: 05/04/25 (09/25/24) DETAILED ANATOMY: Head / Neck Cranial Vault: Normal appearance Face Face Profile: Normal appearance Nasal Bone: Normal appearance Coronal Face: Normal appearance Lips: Normal appearance Nose: Normal appearance Heart Cardiac Activity: Observed Cardiac Rhythm: Normal appearance 4 Chamber View: Normal appearance R. Outflow Tract: Normal appearance L. Outflow Tract: Normal appearance Interventr. Septum: Normal appearance Ductal Arch: Normal appearance Thorax Diaphragm: Normal appearance Abdomen Stomach: Normal appearance Abdominal Wall: Normal appearance Urinary Bladder: Normal appearance R. Kidney: Normal appearance L. Kidney: Normal appearance COMMENTS: Ms. Amaro is being seen to complete the detailed ultrasound by obtaining views of the heart and face. - Her medical history is significant for asthma. - She takes low-dose aspirin. - She had cell free DNA screening performed. Results are low-risk for all conditions assessed. Ultrasound findings: Today the estimated weight is 645 grams, at the 39th percentile. Views of the 4ch, septum, LVOT, Ductal Arch, lips and nose and abdominal cord insertion were obtained and appear normal. This completes the detailed ultrasound. - Plan: Follow up growth at 32 weeks is recommended for BMI >40. Shazia Rodríguez MD Electronically Signed Final Report 01/12/2025 01:54 pm us Leilani Ritter CNM IMG OB US PROCEDURES Final R esult * External Xray Report (01/09/2025) Only the most recent of2 resultswithin the time period is included. Anatomical Region Laterality Modality Radiographic Tatiana ging us Provider [facility] IMG XR PROCEDURES Final Result * US OB Transvaginal (12/18/2024 9:01 AM EDT) Anatomical Region Laterality Modality Body Ultrasound 12/18/2024 7:57 AM EDT Narrative 12/22/2024 10:49 AM EDT OBSTETRICS REPORT (Signed Final 12/22/2024 10:49 am) PATIENT INFO: ID #: [id number] : [birth year] (19 yrs)(F) Name: AGUSTO Visit Date: 12/18/2024 07:57 am PREM PERFORMED BY: Attending: Janay Mora MD Performed By: Anuradha Casanova RDMN Referred By: Ying Wells DO Ref. Address: [address] [place] [address] Location: [facility] SERVICE(S) PROVIDED: Level II complete (Targeted OB) 61374 OB Transvaginal ultrasound 24429 INDICATIONS: Obesity complicating , 2nd O99.212 trimester [...] ISAURA: 05/04/25 Best: 20w 3d Det. By: U/Rocky [...] 50.83 degrees Thorax Lungs: Normal appearance Cardiac [place]: Normal appearance Diaphragm: Normal appearance Thoracic Contour: [...] 12/22/2024 10:49 am) PATIENT INFO: ID #: [id number] : [birth year] (19 yrs)(F) Name: AGUSTO Visit Date: 12/18/2024 07:57 am PREM PERFORMED BY: Attending: Janay Mora MD Performed By: Anuradha Casanova RDMS Referred By: Ying Roy. Address: [address] [place] [address] Location: [facility] SERVICE(S) PROVIDED: US Level II complete (Targeted OB) 92417 OB Transvaginal ultrasound 82543 INDICATIONS: Obesity complicating , 2nd O99.212 trimester [...] 50.83 degrees Thorax Lungs: Normal appearance Cardiac [place]: Normal appearance Diaphragm: Normal appearance Thoracic Contour: [...] 12/22/2024 10:49 am) PATIENT INFO: ID #: [id number] : [birth year] (19 yrs)(F) Name: AGUSTO Visit Date: 12/18/2024 07:57 am PREM PERFORMED BY: Attending: Janay Mora MD Performed By: Anuradha Casanova RDMS Referred By: Ying Wells DO Ref. Address: [address] [place] [address] Location: [facility] SERVICE(S) PROVIDED: US Level II complete (Targeted OB) 60770 OB Transvaginal ultrasound 74887 INDICATIONS: Obesity complicating , 2nd O99.212 trimester [...] GESTATIONAL AGE: LMP: 24w 5d Date: 06/28/24 ISARUA: 04/04/25 U/S Today: 20w 3d ISAURA: 05/04/25 Best: 20w 3d Det. By: U/Rocky C R L ISAURA: 05/04/25 (09/25/24) DETAILED [...] 50.83 degrees Thorax Lungs: Normal appearance Cardiac [place]: Normal appearance Diaphragm: Normal appearance Thoracic Contour: [...] Report 12/22/2024 10:49 am Procedure Note Janay Mroa MD - 12/22/2024 OBSTETRICS REPORT (Signed Final 12/22/2024 10:49 am) PATIENT INFO: ID #: [id number] : [birth year] (19 yrs)(F) Name: AGUSTO Visit Date: 12/18/2024 07:57 am PREM PERFORMED BY: Attending: Janay Mora MD Performed By: Anuradha Casanova RDMS Referred By: Ying Wells DO Ref. Address: [address] [place] [id number] Location: [facility] SERVICE(S) PROVIDED: US Level II complete (Targeted OB) 99307 OB Transvaginal ultrasound 07772 INDICATIONS: Obesity complicating , 2nd O99.212 trimester [...] 50.83 degrees Thorax Lungs: Normal appearance Cardiac [place]: Normal appearance Diaphragm: Normal appearance Thoracic Contour: [...] OB US PROCEDURES Final Re sult * Chlamydia trachomatis and Neisseria gonorrhoeae molecular study (09/29/2024 2:10 PM EDT) Neisseria gonorrhoeae PCR Negative Negative LAB MOLECULAR DIAGNOSTICS METHOD 09/30/2024 12:05 PM EDT [facility] Chlamydia trachomatis PCR Negative Negative LAB MOLECULAR DIAGNOSTICS METHOD 09/30/2024 12:05 PM EDT [facility] Swab Vaginal structure / Unknown Non-blood Collection / Unknown 09/29/2024 2:10 PM EDT 09/29/2024 2:10 PM EDT us Leilani Ritter CNM LAB MICROBIOLOGY - GENERAL O RDERABLES Final Result [facility] [address] [place] [address], [place] [phone] * Hepatitis C antibody (09/23/2024 4:09 PM EDT) Hepatitis C Antibody Negative Negative LAB CHEMISTRY METHOD 09/23/2024 8:46 PM EDT [facility] Blood Venous blood specimen / Unknown Venipuncture / Unknown 09/23/2024 4:09 PM EDT 09/23/2024 4:09 PM EDT Leilani SALAZAR LAB BLOOD ORDERABLES Final R esult Performing Organization Address City/[facility]/ZIP Co de Phone Number [facility] [address] [place] [address], [place] [phone] * HIV 1,2 antibody, p24 antigen with reflex to differentiation (09/23/2024 4:09 PM EDT) [facility] HIV Combo AB/AG Negative Negative LAB CHEMISTRY METHOD 09/23/2024 8:47 PM EDT [facility] Blood Venous blood specimen / Unknown Venipuncture / Unknown 09/23/2024 4:09 PM EDT 09/23/2024 4:09 PM EDT Narrative [facility] - 09/23/2024 8:47 PM EDT This [...] ORDERABLES Final R esult Performing Organization Address [facility]/ZIP Co de Phone Number [facility] [address] [place] [address], [place] [phone] from Last 3 Months or Most Recently Relevant to Health Maintenance Insurance [facility] Care Teams Home Health Caregiver Relationship Specialty Start Date End Date Palak Goldman MD [address] [place] [address] PCP - General Pediatrics 09/09/24
--- OUTSIDE RECORDS SUMMARY | 2025-02-23 20:06 | XMS_ITS | Clinical Summary ---
Author Organization [facility] Address [address] [place] [address] Phone Care Team Providers Care Extension Service Supervisor Name Role Phone Pcp, Unknown Primary Care [...] file Medical Devices Not on file Insurance [facility] [employer] [place] [place] [address] ACO [facility] ACO [facility]CO [facility] ACO [facility]CO [facility] ACO [facility]CO [facility] ACO [facility] [employer] ACO [facility] [employer] ACO Care Teams Extension Service Supervisor Relationship Specialty Start Date End Date Pcp, Unknown PCP - General 09/20/20 Additional Source Comments The information contained in this document represents components of the legal health record. It is not the complete legal health record.[facility]
== END 2025-02-23 17:12 | disposition home or self-care (01) ==
LOC: HO.HMCHD 16:03
PROVIDERS: PCP Nurse Practitioner Pediatrics; Visit Provider Physician Assistant
DX: Z00.00 Encounter for general adult medical examination without abnormal findings (principal); J45.909 Unspecified asthma, uncomplicated; Z3A.29 29 weeks gestation of pregnancy

== ENCOUNTER → 2025-02-23 16:03 | Outpatient (BNVA) | payer OTHER, SELFPAY | PROVIDERS: PCP Nurse Practitioner Pediatrics; Visit Provider Physician Assistant | DX: Z00.00 Encounter for general adult medical examination without abnormal findings (principal); O99.513 Diseases of the respiratory system complicating pregnancy, third trimester; J45.909 Unspecified asthma, uncomplicated; Z3A.29 29 weeks gestation of pregnancy; Z13.30 Encounter for screening examination for mental health and behavioral disorders, unspecified; Z13.39 Encounter for screening examination for other mental health and behavioral disorders | CPT/HCPCS: 99385 ==

== ENCOUNTER 2025-03-31 16:03 | Outpatient (REF) | payer OTHER, SELFPAY ==
--- OUTSIDE RECORDS SUMMARY | 2025-03-29 14:00 | XMS_ITS | Encounter Summary ---
Author Organization [facility] Address [address] [place] [address] Care Team Providers Care Manufacturing Quality Inspector Name Role Phone Palak Goldman MD Primary Care Provider [phone] Reason for Visit * Reason Comments Routine Visit Encounter Details Date Type Department Care Team ([facility] Contact Info) Description 03/29/2025 2:00 PM [facility] Routine Obstetrics and Gynecology [address] [phone] Guevara Santiago, [address] [phone] Dizziness (Primary Dx); Heartburn during in third trimester Social History Tobacco Use Types Packs/Day Years Used Date Smoking Tobacco: Never Smokeless Tobacco: Never Alcohol Use Standard Drinks/Week Comments Never 0 (1 standard drink = 0.6 oz pur e alcohol) Housing Instability Answer Date Recorde d Are you worried that in the next 2 months you may not have stable housing? No 03/09/2025 Food Access & Nutrition Answer Date Rec orded Do you have access to a vari ety of food including fruits and vegetables? Yes 03/09/2025 Access to Healthcare Answer Date Record ed Within the last 3 months, clinton zambrano many times did you visit the emergency department for your medical care? 0 03/09/2025 Health Literacy Answer Date Recorded How often do you need to hav e someone help you when you read instructions, pamphlets, or other written material from your doctor or pharmacy? Never 03/09/2025 Caregiver: How often do you need to have someone help you when you read instructions, pamphlets, or other written material from your doctor or pharmacy? Not on file 03/09/2025 Financial Risk Answer Date Recorded How hard is it for you to pa y for the very basics like food, housing, medical care, and air conditioning / heating? Not very hard 03/09/2025 Transportation Answer Date Recorded Has the lack of transportati on kept you from meetings, work, or from getting things needed for daily living? No Has the lack of transportati on kept you from medical appointments or from getting medications? No 03/09/2025 Social Isolation Answer Date Recorded How often do you feel lonely or isolated from th ose around you? Never 03/09/2025 Food Risk Answer Date Recorded Within the past 12 months we worried whether our food would run out before we got money to buy more. Never true 03/09/2025 Within the past 12 months th e food we bought just didn't last and we didn't have money to get more. Never true 03/09/2025 Dependent Care Answer Date Recorded Do you need help finding or paying for care for your loved ones. For example, child health associate or elderly care for an older adult? No 03/09/2025 Education Answer Date Recorded Do you think completing more education or training, like finishing a GED, going to college, or learning a trade, would be helpful for you? No 03/09/2025 Employment and Income Answer Date Recor ded During the last four weeks, have you been actively looking for work? No 03/09/2025 Living Situation Answer Date Recorded What is your living situation? Unrecognized valu e 03/09/2025 Estimated Date of Delivery Comme nts Yes 05/04/2025 Based on Ultraso und Sex and Gender Information Value Date Recorded Sex Assigned at Not on file Legal Sex Female 10:47 AM EDT Gender Identity Not on file Sexual Orientation Not on file documented as of this encounter Last Filed Vital Signs Vital Sign Reading Time Taken Comments Blood Pressure 107/79 03/29/2025 1:58 PM EST Pulse - - Temperature - - Respiratory Rate - - Oxygen Saturation - - Inhaled Oxygen Concentration - - Weight 109 kg (239 lb 12.8 oz) 03/29/2025 1:58 P M EST Height - - Body Mass Index 43.86 09/23/2024 1:38 PM EDT documented in this encounter Ordered Prescriptions Prescription Sig Dispense Quantity Refills Last Filled Start Date End Date famotidine (PEPCID) 20 mg tablet Take 1 tablet (20 mg total) by mouth 2 (two) times a day. 60 tablet 8 03/29/2025 documented in this encounter Progress Notes * Guevara Santiago CNM - 03/29/2025 2:00 PM ESTAddended by: GUEVARA SANTIAGO on: 03/29/2025 03:30 PM Modules accepted: Orders * Guevara Santiago CNM - 03/29/2025 2:00 PM EST S: Here for problem visit. Was having headache, nausea, dizziness, heartburn, cramping, and LE swelling overnight. Took Tums which helped a little. All other sx have improved but still a little dizzy. +FM, no VB or LOF. O: BP 107/79 FH 35cm FHR 155 02/08/2025 GTT 139 POC today 86 A: normotensive, nl FHR P: Pepcid ordered Reviewed PTL s/s and when to call Advised to hydrate well, elevate legs as needed RTO 04/06 for MASSIMO as scheduled documented in this encounter Plan of Treatment Upcoming Encounters Date Type Department Care Team (Late st Contact Info) Description 04/06/2025 11:00 AM EST [facility] [address] [place] [address] Leilani Ritter CNM [address] [place] [address] 04/12/2025 11:00 AM EST Ancillary Procedure Maternal Medicine - [address] [phone] 04/13/2025 11:00 AM EST Routine Obstetrics [facility]cology - [facility] [address] [place], [place] [address], [place] [phone] Leilani Ritter, [address] 04/20/2025 11:00 AM EST Routine Obstetrics and [facility]necology - [facility] [address] [place] [address] Leilani Ritter, [address] [phone] 04/27/2025 1:30 PM EST [facility] [address] [place] [address] Leilani Ritter, [address] 05/04/2025 11:00 AM EST [facility] [phone] Leilani Ritter, [address] documented as of this encounter Visit Diagnoses Diagnosis Dizziness- Primary Dizziness and giddiness Heartburn during in third trimester documented in this encounter Additional Health Concerns Assessment Noted Time PHQ-9 Depression Total Score: 0 03/09/20 8:27 AM EST documented as of this encounter Care Teams Manufacturing Quality Inspector Relationship Specialty Start Date End Date Palak Goldman MD [address] [place] [phone] PCP - General Pediatrics 09/09/24 documented as of this encounter
[2025-03-31 16:18] LABS: MANUAL DIFF FLAG NO
[2025-03-31 17:26] LABS: Hematocrit 35.7 % (37.0-47.0); Hemoglobin 12.0 g/dl (12.0-16.0); Imm Gran Abs Auto 0.11 X10*3/uL (0.00-0.03); Imm Gran Pct Auto 1.2 % (0.0-0.4); Lymphocytes Absolute Auto 1.5 X10*3/uL (1.2-4.9); Mean Corpuscular HGB Conc 33.6 g/dl (31.0-35.0); Mean Corpuscular Hemoglobin 30.1 pg (27.0-33.0); Mean Corpuscular Volume 89.5 fL (80.0-98.0); NRBC Abs Auto 0.000 X10*3/uL (0.0-0.012); NRBC Pct Auto 0.0 /100WBC (0.0-0.2); Platelet Count 209 X10*3/uL (160-400); Red Blood Count 3.99 X10*6/uL (4.20-5.50); White Blood Count 9.4 X10*3/uL (4.8-10.8)
[2025-03-31 18:09] LABS: Cholesterol 249 mg/dL (<200); HDL Cholesterol 85 mg/dL (>40); Iron 68 mcg/dL (30-160); Percent Iron Saturation 18 % (15-50); Total Iron Binding Capacity 375 mcg/dL (228-428); Triglycerides 154 mg/dL (<150); Unsaturated Iron Binding 307 ug/dL
--- OUTSIDE RECORDS SUMMARY | 2025-03-31 18:49 | XMS_ITS | Clinical Summary ---
Author Organization [facility] Address [address] [place] [address] Phone Care Team Providers Care Painter Structural Steel Name Role Phone Pcp, Unknown Primary Care [...] file Medical Devices Not on file Insurance [facility] [employer] [place] [place] [address] ACO [facility] ACO [facility] ACO [facility] ACO [facility] [employer] ACO [facility] [employer] ACO Care Teams Painter Structural Steel Relationship Specialty Start Date End Date Pcp, Unknown PCP - General 09/20/20 Additional Source Comments The information contained in this document represents components of the legal health record. It is not the complete legal health record.[facility]
--- OUTSIDE RECORDS SUMMARY | 2025-03-31 18:49 | XMS_ITS | Encounter Summary ---
Author Organization [facility] Address [address] [place] [address] Care Team Providers Care Transmission Specialist Name Role Phone Palak Goldman MD Primary Care Provider [phone]- [phone] Encounter Details Date Type Department Care Team (Late Contact Info) Description 02/08/2025 Results Follow-Up Obstetrics and Gynecology - [facility] [address] [place], [place] [phone] Vanessa Vallejo RN Social History Tobacco Use [...] Department Care Team (Late Contact Info) Description 04/06/2025 11:00 AM EST Routine Obstetrics and Gynecology - [facility] [address] [place], [place] [phone] Leilani Ritter CNM [address] [place] [phone] 04/12/2025 11:00 AM EST Ancillary Procedure Maternal Medicine [address] [phone] 04/13/2025 11:00 AM EST Routine Obstetrics and Gynecology - [facility] [address] [place] [address] Leilani Ritter [address] 04/20/2025 11:00 AM EST Routine Obstetrics and Gynecology - [facility] [address] [place] [address] Leilani Ritter [address] 04/27/2025 1:30 PM EST [facility] [address] [place] [address] Leilani Ritter [address] [phone] 05/04/2025 11:00 AM EST [facility] [phone] Leilani Ritter, [address] [phone] documented as of this encounter Visit Diagnoses Diagnosis Maternal obesity, antepartum- Primary documented in this encounter Care Teams Transmission Specialist Relationship Specialty Start Date End Date Palak Goldman MD [address] [place] [phone] PCP - General Pediatrics 09/09/24 documented as of this encounter
--- OUTSIDE RECORDS SUMMARY | 2025-03-31 18:49 | XMS_ITS | Data Portability ---
Author Organization [place] [facility], Allergy Address [address] [address] Care Team Providers Care Research Test Engine Evaluator Name Role Phone GINA BEARDENJANA Primary Care Provider BYRON COTO Primary Care Provider [phone] ELTON YANG Primary Care Provider Assessment Encounter [...] is good three year data showing the long-term success as well. We discussed the risks [...] patient with the contact information for my surgical appliance fitter. We will begin the scheduling process and see the patient back at the time of surgery. Patient will not require medical clearance from their primary care provider preoperatively. Robina Amin PA-C functioned as a scribe during this visit. [email or web address] Not available 03/09/2024 21:31:49 06/01/2024 06/01/2024 19yo [...] dilation of eustachian tube; unilateral (SURG) 2023 [email or web address] Not available 08:41:05 Imaging None recorded. Medication Orders Flonase Allergy Relief 50 mcg/actuati on nasal spray,suspe nsion 2023 024 [id number], [address], [place], [address], 13:17:38 Patient TargetsNo targets recorded. 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 [email or web address] Not Available 2023 14:54:17 06/02/19 25 audio gram No observ ation record ed. BARCODE Not Available 2024 09:07:08 Result Notes None recorded. Problems Name Problem SNOMED Code Status Onset Date Resolution Date Notes Provider Name and Address Organization Details Recorded Time Bilateral disorder of Eustachia n tubes 56951070745 52769 Active 2016 Other specified disorders of Eustachia n tube, bilateral ; Note: Date Diagnosed : 06/26/2016 10:33 AM (H69.83) Not Available [facility] 4 02:29:29 Conductiv e hearing loss, bilateral 590430253 Active 2016 Conductiv e hearing loss, bilateral ; Note: Date Diagnosed : 06/26/2016 10:05 AM (H90.0) Not Available [facility] 4 02:29:27 Dysfuncti on of eustachia n tube 94097537 Active 2016 Eustachia n tube dysfuncti on; Location: bilateral CMS Risk: low risk CMS Treatment : establish ed problem (to examiner) : stable or improved Condition : stable No te: Date Diagnosed : 01/31/2014 12:47 PM (381.81) Not Available [facility] 4 02:29:39 Pain of temporoma ndibular joint 15927378 Active 2022 Temporoma ndibular joint disorders , arthralgi a of temporoma ndibular joint; Location: bilateral Note: Date Diagnosed : 07/31/2022 4:44 PM (524.62) Not Available [facility] 4 02:29:27 Temporoma ndibular joint disorder 25779092 Active 2022 Other specified disorders of temporoma ndibular joint; Location: bilateral Note: Date Diagnosed : 07/31/2022 4:44 PM (M26.69) Not Available [facility] 4 02:29:45 Allergic rhinitis caused by pollen 33520368 Active 2022 Allergic rhinitis due to pollen; Note: Date Diagnosed : 09/18/2022 1:35 PM (J30.1) Not Available [facility] 4 02:29:45 Tinnitus of vascular origin 930304513 Active 2022 Pulsatile tinnitus, bilateral ; Note: Date Diagnosed : 09/18/2022 1:35 PM (H93.A3) Not Available [facility] 4 02:29:27 Bilateral tinnitus 17364632728 02 Active 2023 Tinnitus, bilateral ; Note: Date Diagnosed : 06/03/2023 1:39 PM (H93.13) Not Available [facility] 4 02:29:40 Impacted cerumen in right ear 12347949245 52426 Active 2023 Impacted cerumen, right ear; Note: Date Diagnosed : 06/03/2023 1:39 PM (H61.21) Not Available [facility] 4 02:29:51 Non-suppu rative otitis media 877731704 Active 2023 Unspecifi ed nonsuppur ative otitis media, right ear; Note: Date Diagnosed : 09/06/2023 2:29 PM (H65.91) Not Available [facility] 4 02:29:40 Acute otitis media 6045318 Active 2023 Luanne farooq [place] - [facility] 4 10:53:02 Allergic rhinitis 90580170 Active 2023 ROBINA AMIN PA-C [address] [facility],[place] [address], [place], [address] , [facility] - [facility] 4 13:23:31 Seasonal allergic rhinitis 898882645 Active 2023 ROBINA AMIN PA-C [address] [facility],[place] [address], [place], [address] , [place] - [facility] 4 13:23:31 Non-aller gic rhinitis 36467467203 1 Active 2023 ROBINA AMIN PA-C [address] [facility],[place] [address], [place], [address] , [facility] - [facility] 4 13:23:31 Conductiv e hearing loss of right ear 7295159758 Active 2023 ROBINA RAMIREZ, AUD [address] [facility],[place] [address], [facility] [place], [address] , [place] - [facility] 4 13:40:30 Chronic serous otitis media of right ear 437431726 Active 2023 ROBINA AMIN PA-C [address] [facility],[place] [address], [facility] [place], [address] , [place] - [facility] 4 17:28:33 Chronic mucoid otitis media of right middle ear 70435517836 92793 Active 2024 BIJAL BROWN MD [address] [facility],[place] [address], [place], [address] , [facility] - [facility] 5 08:16:46 Abnormal auditory perceptio n 76785944 Active 2024 STEVEN PALMA, ROSY [address] [facility],[place] [address], [place], [address] , [facility] - [facility] 5 13:45:24 Tinnitus of left ear 62991753731 06 Active 2024 ROBINA AMIN PA-C [address] [facility],[place] [address], [facility] [place], [address] , [facility] - [facility] 5 14:04:14 Problem Notes None recorded. Procedures Surgical History Date Name Laterality Status Provider Name and Address Organization Details Recorded Time 025 Air & Speech Audio with Tymps - 48420, 00202 & 97596 completed ROSY MARCELINO [address] [facility] [address],[place] [facility], [place], [address], [facility] - [facility] 06/01/2024 13:44:52 024 Allergy Testing-Full completed BEBO OLIVERA [address] [place] [address], [place], [address], [place] - [facility] 04/02/2024 11:49:33 11/11/2 024 Comp Audio with Tymps - 71345 & 93479 completed ROSY WIGGINS [address] [facility],[place] [address], [place], [address], [facility] - [facility] 03/09/2024 13:40:08 024 Fiberoptic Nasopharyngoscopy completed BIJAL BROWN MD [address] [facility],[place] [address], [place], [address], [facility] - [facility] 03/09/2024 21:30:13 Imaging Results None recorded. Procedure [...] mg tablet 04/02 completed Medicati on ID: [id number] B rand Name: sumatrip osborne succinat e Send Method: E-Prescr ibed Sub s Allowed: subs OK Medic ationGen ericName : sumatrip osborne succinat e Not Available Not Available Not Available Medrol (Pérez) 4 mg tablets in a dose pack 06/14 completed Medicati on ID: [id number] P rescribe d By Name: Carmen Jo [...] eye drops 04/02 completed Medicati on ID: [id number] D uration Value: 5 Prescri bed By [...] Available No t Available [facility]amb er Mae [facility] spacer TO BE USED WITH ALBUTERO L FOR WHEEZING active Not Available Not Available No t Available Vitals Date Recorded Body height Body mass index (BMI) Body mass index (BMI) [Percentile] Per age and sex Body weight Provider Name and Address Organization Details Last Updated DateTime 06/01/2024 157.48 cm 40.2 kg/m2 98 % 15205.32 g Katy Lam [facility] 06/01/2024 13:30:28 Date Recorded Body height Body mass index (BMI) [Percentile] Per age and sex Body mass index (BMI) Body weight Provider Name and Address Organization Details Last Updated DateTime 03/09/2024 157.48 cm 96.53 % 34.8 kg/m2 96477.55 g Evelin Pearson [facility] 03/09/2024 12:52:11 Date Recorded Body height Body mass index (BMI) [Percentile] Per age and sex Body mass index (BMI) Body weight Oxygen saturation Heart rate Systolic And Diastolic Provider Name and Address Organization Details Last Updated DateTime 4 157.48 cm 97 % 36.4 kg/m2 73194.8 8 g 98 % 79 /min 120/76 mm[Hg] SERJIO JARVIS, [facility] [address], [address], [facility] 10:40:26 Social History None recorded. Functional Status None recorded. Mental Status None recorded. Family History Nothing Reported. Medical History No medical history recorded. Gynecological HistoryNo gynecological history recorded. Obstetrics History GPAL:G 0 P 0 0 0 0 Past Encounters Encounter ID Performer Location Encounter Start Date Encounter Closed Date Diagnosis/Indication Diagnosis SNOMED-CT Code Diagnosis ICD10 Code Diagnosis IMO Codes Diagnosis Note [id number] BIJAL BROWN MD [facility] [address] [address] 03/09/2024 12:39:17 03/09/2024 14:06:55 Allergic rhinitis caused by pollen 01173734 J30.1 Bilateral tinnitus 86188 15389 102 H93.13 Bilateral disorder of Eustachian tubes 5273028597 455077 H69.83 Conductive hearing loss of right ear 0584086197 H90.2 Audiologic al evaluation results: 03/09/2024 Right ear: Mild flat conductive hearing loss with excellent word recognitio n. Left ear: Normal hearing with excellent word recognitio n. Tympanomet ry: Right Ear:Type B Left Ear:Type A Chronic se pawel otitis media of right ear 121279102 H65.21 [id number] [facility] [address] [facility] it[address] [place] [address] 04/02/2024 10:17:59 04/02/2024 11:50:13 Allergic rhinitis 19322813 J30.9 [id number] ROBINA AMIN PA-C [facility] [address] [address] 06/01/2024 13:16:07 06/01/2024 14:04:54 Chronic mucoid otitis media of right middle ear 0318501197 595029 H65.31 Abnormal a uditory perception 25946120 H93.299 Audiologic al evaluation results: Right ear: Normal auditory thresholds with excellent speech discrimina tion. Left ear: DNT. Normal 02/2024 Tympanomet ry: Right Ear:Type B Left Ear:DNT Tinnitus of left ear 088 9267409 106 H93.12 Health Concerns Section Related Observation LastModified by Organization Detai ls LastModified Time None Recorded Concern Status LastModified by Organization Details LastModified Time None Recorded Advance Directives Directive None Recorded Payers Insurance Date Sequence Insurance Name Policy Number Policy [place] Covered Member ID Os[place] Member ID Guarantor Name 05/15/2024 1 [facility] (MEDICAID HMO) [id number] Agusto Quezada [id number] Agusto Amaro 10/06/2024 1 [place] [facility] Agusto Quezada [id number] Agusto Amaro 05/29/2024 2 [facility] Agusto Quezada [id number] Agusto Amaro 07/16/2024 1 [facility] (MEDICAID HMO) [id number] Agusto Amaro [id number] Agusto Amaro 12/10/2024 1 [facility] (HMO) [id number] Agusto Amaro [id number] Agusto Amaro 09/24/2024 2 [facility] Agusto Amaro [id number] Agusto Amaro 12/10/2024 2 [facility] (MEDICAID REPLACEMENT - HMO) [place]ERRER[place] Agusto Amaro [id number] Agusto Amaro Notes Date Note Type Note [...] right sided effusion.. BIJAL BROWN MD [address] [facility],[place] [address], [place], [address], [facility] 03/09/2024 21:33:52 06/01/2024 text/html ROS as noted in the HPI 19yo female presents following right myringotomy tube placement 05/04/[address] Brown. She had the Flu 3 weeks ago, and reports right ear pain and frequent right ear popping. Endorses chronic left tinnitus. Denies otorrhea or hearing changes otherwise. JUNITO RASCON MD [address] [facility],[place] [address], [place], [address], [facility] 06/01/2024 17:19:34 OBGyn Episode No OBEpisode recorded.
--- OUTSIDE RECORDS SUMMARY | 2025-03-31 18:49 | XMS_ITS | Clinical Summary ---
Author Organization [address] Address [address] [place] [phone] Phone Care Team Providers Care Director Instructional Material Name Role Phone Palak Goldman MD Primary Care Provider [phone] Allergies No known active allergies Medications Ventolin [...] day. 30 g 5 02/23/20 26 Active famotidine (PEPCID) 20 mg tablet Take 1 tablet (20 mg total) by mouth 2 (two) times a day. 60 tablet 8 5 Active Active Problems Problem Noted Date Diagnosed Date Extrinsic asthma with acute exacerbation 025 Carrier of spinal muscular atrophy 10/05/2024 Overview (10/05/2024): Horizon 14 result INCREASED CARRIER RISK for Spinal Muscular Atrophy: Two copies of the SMN1 gene detected .Positive for the g.01112S>G variant. Based on this individual's reported ethnicity, the individual has a 1 in 140 risk To be a silent (2+0) carrier for SMA. If this individual's partner is a carrier for Spinal Muscular Atrophy, they may be at increased risk to have a child with this condition. Carrier screening for this individual's partner is suggested. Order for partner Patric Sanchez placed in [employer]'s website 10/05/24 Assessment & Plan (11/17/2024 2:34 PM EDT): FOB- no insurance currently. Forms completed and kit provided, can be completed once he has his insurance, Encounter for supervision of normal first in first trimester 09/23/2024 Overview (02/11/2025): 1. [facility] site: [facility]: [address] [place] [address] ([phone]) 2. Delivery site: [facility] 3. Mobile Mommas: No 4. Dating criteria: LMP - changed based on 09/25/34 u/s (S<D). EDC now 05/04/25 5. Blood type: A-Positive 6. Genetic screening: Date: Result: Panorama: Low risk panorama, XX Horizon: INCREASED CARRIER RISK for Spinal Muscular Atrophy: Two copies of the SMN1 gene detected .Positive for the g.81612X>G variant. Based on this individual's reported ethnicity, [...] BMI of 50 by 28wks transfer to [facility] DVT prophylaxis- Lovenox if CS and BMI [...] Encounters Date Type Department Care Team Description 03/29/2025 2:00 PM EST Routine Obstetrics and Gynecology - [address] [phone] Sherrie Hurley CNM Dizziness (Primary Dx); Heartburn during in third trimester 03/24/2025 11:00 AM EST Routine Obstetrics and [facility]necology - [address] [place], [place] [phone] Leilani Ritter CNM Normal first in third trimester (Primary Dx); 34 weeks gestation of 03/15/2025 10:00 AM EST Ancillary Procedure Maternal Medicine - [address] [phone] Supervision of high risk in third trimester 03/09/2025 8:30 AM EST Routine Obstetrics and Gynecology - [address] [place], [place] [phone] Ying Wells DO 32 weeks gestation of (Primary Dx); Maternal obesity, antepartum 03/03/2025 3:25 PM EST Lab Draw Station [address] [place] Urinary frequency; Urinary urgency 02/22/2025 11:00 AM EDT Routine Obstetrics & Gynecology - [address] [phone] Shy Theodore CNM Supervision of high risk in third trimester (Primary Dx); 29 weeks gestation of ; Maternal obesity, antepartum; Skin rash; Headache in , antepartum, third trimester 02/11/2025 9:00 AM EDT Routine Obstetrics and Gynecology - [address] [place], [place] [phone] Leilani Ritter CNM 28 weeks gestation of (Primary Dx); Normal first in third trimester; Encounter for supervision of normal first in first trimester 02/08/2025 Results Follow-Up Obstetrics and Gynecology - [address] [place], [place] [phone] Vanessa Vallejo RN 02/08/2025 Telephone Obstetrics and Gynecology - [address] [phone] Leilani Ritter CNM 01/14/2025 8:45 AM EDT Routine Obstetrics and Gynecology - [address] [place] [phone] Ying Wells DO 24 weeks gestation of (Primary Dx); Moderate persistent extrinsic asthma with acute exacerbation; Maternal obesity, antepartum 01/12/2025 11:00 AM EDT Ancillary Procedure Maternal Medicine [address] [phone] Obesity affecting in second trimester; Other obesity due to excess calories affecting in third trimester; Encounter for screening for malformation from Last 3 Months Immunizations Immunization Administration [...] Alive Half-Sister 2 Mingo Alive Half-Sister 3 Charbel Alive Half-Sister 4 Gayle Alive Half-Sister 5 Joel Alive Maternal Grandfather Maternal Grandmother Alive Mother [...] Record ed Within the last 3 months, ho w many times did you visit the emergency [...] care for your loved ones. For example, early childhood associate or elderly care for an older [...] Estimated Date of Delivery 09/23/2024 - Present (03/31/2025) 05/04/2025 (set by Vanessa Vallejo RN on [...] Vitals Pregravid Weight Height TWG (As of 03/31/2025) Pregrav id BMI 98 kg (216 lb) 1.575 m (62 ) 10.8 kg (23 lb 12.8 oz) 3 9.50 Notes Progress Notes - Routine Pre boby - 03/29/2025 - GA:34w6d 03/29/2025 - 34w6d - Sherrie Street CNM S: Here for problem visit. Was having [...] needed RTO 04/06 for MASSIMO as scheduled Progress Notes - Routine Pre - 03/24/2025 - GA:34w1d 03/24/2025 - 34w1d - Leilani Ritter CNM Subjective Chief Complaint Patient presents with Routine Visit Agusto Amaro is a 20 y.o. at 34w1d with a working estimated date of delivery of 05/04/2025, by Ultrasound who presents for a routine visit. She denies vaginal bleeding, leakage of fluid, decreased movements, or contractions. HPI: no concerns Review of Systems The following portions of the patient's chart were reviewed in this encounter and updated as appropriate: Allergies Meds Objective Physical Exam Weight: 109 kg (240 lb) Expected Total Weight Gain: 5 kg (11 lb)-9 kg (19 lb) Pregravid BMI: 39.50 BP: 120/69 (P: 96) OBGyn Exam Labs Urine dip: , , , Hemoglobin Date Value Ref Range Status 02/08/2025 12.2 11.5 - 16.0 g/dL Final Hematocrit Date Value Ref Range Status 02/08/2025 36.7 35.0 - 47.0 % Final ABO Group Date Value Ref Range Status 09/23/2024 A Final Rh Type Date Value Ref Range Status 09/23/2024 Positive Final Hepatitis B Surface Ag Date Value Ref Range Status 09/23/2024 Negative Negative Final Assessment/Plan Normal first in third trimester (Primary) 34 weeks gestation of Progress Notes - Routine Pre boby - 03/09/2025 - GA:32w0d 03/09/2025 - 32w0d - Ying Vann DO Agusto is a 19yo G1 at 32 weks presenting with her partner for MASSIMO visit with no concerns. She reports good FM, no VB or LOF. complicated by maternal obesity for which she has a growth US scheduled next week and will start weekly NSTs at 34 weeks. Discussed with Agusto that she will be receiving a letter explaining that effective Apr.05, maternity services at [facility] will be suspended. We are collaborating with [facility] and will coordinate delivery there. She expressed understanding that she is still a patient of [facility] business integration manager, she can continue her pre/ care here, she will simply deliver at [facility]. Visit Vitals BP 98/64 Comment: P: 76 Wt 108 kg (238 lb) LMP 06/28/2024 (Exact Date) BMI 43.53 kg/m OB Status Smoking Status Never BSA 2.06 m FH: 32cm FHT: 140bpm Reasons to call reviewed Call system reviewed Follow up in 2 weeks or sooner with any concerns Ying Wells DO Progress Notes - Routine Pre boby - 02/22/2025 - GA:29w6d 02/22/2025 - 29w6d - Shy Theodore CNM Subjective Chief Complaint Patient presents [...] wrist rash Progress Notes - Routine Pre boby - 02/11/2025 - GA:28w2d 02/11/2025 - 28w2d [...] she was seen 5 days ago at [place] [facility] for an asthma exacerbation. 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 N/A Do you know what your [...] of estimated date of delivery No Thalassemia (Comoran, Citizen Of [place], Mediterranean, or background): MCV less than 80 No Neural tube defect (Meningomyelocele, Spina bifida, or Anencephaly) No Congenital heart defect No Down syndrome No Sohan-Sachs (Ashkenazi Sabianist, Cajun, Belarusian Wallisian) No Celio disease (Ashkenazi Sabianist) No Familial dysautonomia (Ashkenazi Sabianist) No Sickle cell disease or trait () No Hemophilia or other blood disorders No Muscular dystrophy No Cystic fibrosis No Timo's chorea No Intellectual disability and/or autism No [...] Amaro has also been informed of the accounting intern provider recommendation for first trimester nuchal lucency [...] Genetic Testing has been reviewed and the [employer] information sheet has been provided to the [...] For Horizon Carrier Screening, if patient has [employer], [employer] or [employer] insurances: Not Applicable Electronically signed by: Honey Galvan RN 09/23/24 2:33 PM EDT Last Filed Vital Signs Vital Sign Reading Time Taken Comments Blood Pressure 107/79 03/29/2025 1:58 PM EST Pulse 74 12/17/2024 10:25 AM EDT Temperature - - Respiratory Rate 16 12/17/2024 10:25 AM EDT Oxygen Saturation - - Inhaled Oxygen Concentration - - Weight 109 kg (239 lb 12.8 oz) 03/29/2025 1:58 P M EST Height 157.5 cm (5' 2 ) 09/23/2024 1:38 PM EDT Body Mass Index 43.86 09/23/2024 1:38 PM EDT Plan of Treatment Upcoming Encounters Date Type Department Care Team (Late st Contact Info) Description 04/06/2025 11:00 AM EST Routine Obstetrics and Gynecology - [address] [place], [place] [phone] Leilani Ritter CN [address] [place], [place] 04/12/2025 11:00 AM EST Ancillary Procedure Maternal Medicine - [address] [phone] 04/13/2025 11:00 AM EST Routine Obstetrics [facility]necology - [facility] [address] [place], [place] [address] [place], [place] [phone] Leilani Ritter CN [address] [place], [place] 04/20/2025 11:00 AM EST Routine Obst[facility]cology [facility] [place] [place] [phone] Leilani Ritter CN [address] [place], [place] 04/27/2025 1:30 PM EST Routine Obstetrics [facility]necology [facility] [facility] [place] [place] [phone] Leilani Ritter CNM [address] [facility] [phone] 05/04/2025 11:00 AM EST Routine Obstetrics and Gynecology - [address] [place] [phone] StoneLeilani, [facility] [address] [facility] [place] [phone] Health Maintenance Due Date Last Done Comments Meningococcal B Vaccine (1 o f 2 - Standard) 2020 HPV Vaccines (2 - 3-dose series) 02/28/2021 01/31/2021 Hepatitis B Vaccines (1 of 3 - 19+ 3-dose series) 2023 Pneumococcal Vaccine: Pediatrics (0 to 5 Years) and At-Risk Patients (6 to 49 Years) (1 of 2 - PCV) 2023 Annual Well Child Visit (3-2 1 years old) 09/09/2024 Cholesterol Screening (Lipid Panel) 09/09/2024 COVID-19 Vaccine (4 - 2024-2 6 season) 2024 05/24/2021, 11/21/2020, 10/31/2020 Influenza Vaccine (#1) 2024 05/11/2024 RSV Immunization Adult Patients (1 - Risk 1-dose series) 03/09/2025 Cervical Cancer Screening: P ap Smear 2025 Gonorrhea/Chlamydia Screening 09/29/2025 09/29/2024 Social Influencers of Health Screening 03/09/2026 03/09/2025 DTaP,Tdap,and Td Vaccines (2 - Td or Tdap) 02/11/2035 02/11/2025 Meningococcal ACWY Vaccine Completed 01/31/2021 HIV Screening Completed 09/23/2024 Hepatitis C Screening Completed 09/23/2024 Depression Screening Completed 03/09/2025 HIB Vaccines Aged Out No longer eligi [...] Priority Date/Time Associated Diagnosis Comments US OB FOLLOWUP PER FETUS Routine 03/15/2025 10:50 AM EST Supervision of high risk in third trimester RICE URINE CULTURE TUBE Routine 03/03/20 3:26 PM EST Urinary frequency Urinary urgency URINALYSIS WITH REFLEX MICROSCOPIC AND CULTURE Routine 03/03/2025 3:26 PM EST Urinary frequency Urinary urgency URINALYSIS WITH REFLEX MICROSCOPIC AND CULTURE Routine 03/03/2025 3:26 PM EST Urinary frequency Urinary urgency CULTURE URINE Routine 03/03/2025 3:26 PM EST Urinary frequency Urinary urgency GTT GESTATIONAL 1 HOUR Routine 12:26 PM [...] XRAY REPORT 01/09/2025 EXTERNAL XRAY REPORT 01/09/2025 CHLAMYDIA TRACHOMATIS AND NEISSERIA GONORRHOEAE PCR Routine [...] to Health Maintenance Results * US OB Followup per Fetus (03/15/2025 10:50 AM EST) Only the most recent of2 resultswithin the time period is included. Anatomical Region Laterality Modality Body Ultrasound 03/15/2025 10:1 7 AM EST Narrative 03/15/2025 3:16 PM EST OBSTETRICS REPORT (Signed Final 03/15/2025 03:16 pm) PATIENT INFO: ID #: [id number] : [birth year] (19 yrs)(F) Name: AGUSTO Visit Date: 03/15/2025 10:17 am PREM PERFORMED BY: Attending: Shazia Rodríguez MD Associate: [facility] [employer] student Performed By: August Contreras [facility] Referred By: Ying Russell COLLINS Ref. Address: [address] [place] [address] Location: [facility] ([facility]) SERVICE(S) PROVIDED: [place] [id number] INDICATIONS: Obesity complicating , 3rdtrimester O99.213 Morbid obesity E66.01 32 weeks gestation of Z3A.32 TECHNIQUE/SCAN QUALITY: Technique: Transabdominal Scan Satisfactory Quality: OB HISTORY: : 1 Term: 0 VITAL SIGNS: Weight (lb) Height BMI 238 5'2 43.53 EVALUATION: Number Of Fetuses: 1 Heart Rate(bpm): 146 Cardiac Activity: Observed Presentation: Cephalic Placenta Location: Anterior Appearance: Grade 2 Relation to CVX: No previa Amniotic Fluid YANIV FV: Within Normal Limits RUQ(cm) RLQ(cm) LUQ(cm) LLQ(cm) 2.59 1.69 1.43 3.96 YANIV Sum(cm) %Tile Largest Pocket(cm) 9.67 15 3.96 Comment: A >2 x 2 cm pocket of fluid is noted. BIOMETRY: BPD: 83.3 mm G.Age: 33w 4d 63 % HC: 305.5 mm G.Age: 34w 0d 43 % AC: 285.8 mm G.Age: 32w 4d 43 % FL: 59.4 mm G.Age: 31w 0d 4.5 % LV: 2.3 mm CI: 74.85 % 70 - 86 FL/HC: 19.4 % 19.9 - 21.5 HC/AC: 1.07 0.96 - 1.11 FL/BPD: 71.3 % 71 - 87 FL/AC: 20.8 % 20 - 24 Est. FW: 1952 gm 4 lb 5 oz 25 % GESTATIONAL AGE: LMP: 37w 1d Date: 06/28/24 ISAURA: 04/04/25 U/S Today: 32w 6d ISAURA: 05/04/25 Best: 32w 6d Det. By: Azucena Ledesma ISAURA: 05/04/25 (09/25/24) STANDARD ANATOMY: Cranium: Normal appearance Stomach: Normal appearance Kidneys: Normal appearance Bladder: Normal appearance COMMENTS: Ms. Amaro is being seen to assess growth for class III obesity. - Her medical history is significant for asthma. - She takes low-dose aspirin. - She had cell free DNA screening performed. Results are low-risk for all conditions assessed. Ultrasound findings: Today the estimated weight is 1,952 grams, at the 25th percentile. Amniotic fluid volume is normal. - Plan: Follow up growth at 36 weeks for BMI >40 has been scheduled. Shazia Rodríguez MD Electronically Signed Final Report 03/15/2025 03:16 pm Procedure Shazia Kurtz MD - 03/15/2025 OBSTETRICS REPORT (Signed Final 03/15/2025 03:16 pm) PATIENT INFO: ID #: [id number] : [birth year] (19 yrs)(F) Name: AGUSTO Visit Date: 03/15/2025 10:17 am PREM PERFORMED BY: Attending: Shazia Rodríguez MD Associate: [employer] student Performed By: August Contreras RDMS Referred By: Ying Roy. Address: [address] [place] [address] Location: [facility] ([facility]) SERVICE(S) PROVIDED: [place] [id number] INDICATIONS: Obesity complicating , 3rdtrimester O99.213 Morbid obesity E66.01 32 weeks gestation of Z3A.32 TECHNIQUE/SCAN QUALITY: Technique: Transabdominal Scan Satisfactory Quality: OB HISTORY: : 1 Term: 0 VITAL SIGNS: Weight (lb) Height BMI 238 5'2 43.53 EVALUATION: Number Of Fetuses: 1 Heart Rate(bpm): 146 Cardiac Activity: Observed Presentation: Cephalic Placenta Location: Anterior Appearance: Grade 2 Relation to CVX: No previa Amniotic Fluid YANIV FV: Within Normal Limits RUQ(cm) RLQ(cm) LUQ(cm) LLQ(cm) 2.59 1.69 1.43 3.96 YANIV Sum(cm) %Tile Largest Pocket(cm) 9.67 15 3.96 Comment: A >2 x 2 cm pocket of fluid is noted. BIOMETRY: BPD: 83.3 mm G.Age: 33w 4d 63 % HC: 305.5 mm G.Age: 34w 0d 43 % AC: 285.8 mm G.Age: 32w 4d 43 % FL: 59.4 mm G.Age: 31w 0d 4.5 % LV: 2.3 mm CI: 74.85 % 70 - 86 FL/HC: 19.4 % 19.9 - 21.5 HC/AC: 1.07 0.96 - 1.11 FL/BPD: 71.3 % 71 - 87 FL/AC: 20.8 % 20 - 24 Est. FW: 1952 gm 4 lb 5 oz 25 % GESTATIONAL AGE: LMP: 37w 1d Date: 06/28/24 ISAURA: 04/04/25 U/S Today: 32w 6d ISAURA: 05/04/25 Best: 32w 6d Det. By: U/S Sven Ledesma ISAURA: 05/04/25 (09/25/24) STANDARD ANATOMY: Cranium: Normal appearance Stomach: Normal appearance Kidneys: Normal appearance Bladder: Normal appearance COMMENTS: Ms. Amaro is being seen to assess growth for class III obesity. - Her medical history is significant for asthma. - She takes low-dose aspirin. - She had cell free DNA screening performed. Results are low-risk for all conditions assessed. Ultrasound findings: Today the estimated weight is 1,952 grams, at the 25th percentile. Amniotic fluid volume is normal. - Plan: Follow up growth at 36 weeks for BMI >40 has been scheduled. Shazia Rodríguez MD Electronically Signed Final Report 03/15/2025 03:16 pm us Shy Theodore [facility] IMG OB US PROCEDURES Final Re sult * (ABNORMAL) Urinalysis with reflex microscopic and culture (03/03/2025 3:26 PM EST) Specific [place] Urine 1.030 1.003 - 1.030 LAB URINALYSIS - AUTOMATED METHOD 03/03/2025 6:15 PM [facility] pH, Urine 6.0 5.0 - 8.0 pH LAB URINALYSIS - AUTOMATED METHOD 03/03/2025 6:15 PM [facility] Leukocytes, Urine Moderate(A) Negative LAB URINALYSIS - AUTOMATED METHOD 03/03/2025 6:15 PM [facility] Nitrite, Urine Negative Negative LAB URINALYSIS - AUTOMATED METHOD 03/03/2025 6:15 PM [facility] Protein, Urine Trace <=Trace mg/dL LAB URINALYSIS - AUTOMATED METHOD 03/03/2025 6:15 PM [facility] Glucose, Urine Negative Negative mg/dL LAB URINALYSIS - AUTOMATED METHOD 03/03/2025 6:15 PM [facility] Ketones, Urine Negative Negative mg/dL LAB URINALYSIS - AUTOMATED METHOD 03/03/2025 6:15 PM [facility] Urobilinogen , Urine 1.0 0.2 - 1.0 mg/dL LAB URINALYSIS - AUTOMATED METHOD 03/03/2025 6:15 PM [facility] Bilirubin, Urine Negative Negative LAB URINALYSIS - AUTOMATED METHOD 03/03/2025 6:15 PM [facility] Blood, Urine Negative Negative LAB URINALYSIS - AUTOMATED METHOD 03/03/2025 6:15 PM [facility] RBC, Urine 3.9 0 - 4 /HPF LAB URINALYSIS - AUTOMATED METHOD 03/03/2025 6:15 PM [facility] WBC, Urine 22.3(H) 0 - 4 /HPF LAB URINALYSIS - AUTOMATED METHOD 03/03/2025 6:15 PM [facility] Squamous Epithelial, Urine >100(H) 0 - 60 /LPF LAB URINALYSIS - AUTOMATED METHOD 03/03/2025 6:15 PM [facility] Bacteria, Urine Many(A) Negative /HPF LAB URINALYSIS - AUTOMATED METHOD 03/03/2025 6:15 PM [facility] Hyaline Casts, Urine 4.4(H) 0 - 3 /LPF LAB URINALYSIS - AUTOMATED METHOD 03/03/2025 6:15 PM [facility] Urine Urine specimen obtained by clean catch procedure / Unknown Non-blood Collection / Unknown 03/03/2025 3:26 PM EST 03/03/2025 3:26 PM EST Leilani Ritter CNM LAB URINE ORDERABLES Final R esult [facility] [address] [place] [address], * Rice urine culture tube (03/03/2025 3:26 PM EST) Extra Tube Hold for add-ons. 03/03/2025 6:01 PM EST [facility] Comment:Auto resulted. Urine Urine specimen obtained by clean catch procedure / Unknown Non-blood Collection / Unknown 03/03/2025 3:26 PM EST 03/03/2025 3:26 PM EST Leilani Ritter [facility] URINE ORDERABLES Final R esult Performing Organization Address City/[facility]/ZIP Co de Phone Number [facility] [address] [place] [address], [place] [phone] * Culture urine (03/03/2025 3:26 PM EST) Pathologist [facility] Culture, Urine 50,000-99,000 CFU/mL Mixed urogenital samira, no uropathogens present. Suggest repeat specimen if clinically indicated. 03/04/2025 2:41 PM EST [facility] Urine Urine specimen obtained by clean catch procedure / Unknown Non-blood Collection / Unknown 03/03/2025 3:26 PM EST 03/03/2025 6:15 PM EST Leilani Ritter [facility] MICROBIOLOGY - GENERAL O RDERABLES Final Result Performing Organization Address City/[facility]/ZIP Co de Phone Number [facility] [address] [place] [address], [place] [phone] * GTT gestational 1 hour (02/08/2025 12:26 PM EDT) Glucose, 1 HR Gestational 139 <140 mg/dL LAB CHEMISTRY METHOD 02/08/2025 3:23 PM EDT [facility] Blood Venous blood specimen / Unknown Venipuncture / Unknown 02/08/2025 12:26 PM EDT 02/08/2025 12:26 PM EDT Narrative [facility] - 02/08/2025 3:23 PM EDT Gestational Diabetes Challenge Reference Range: 1 hour Glucose <140 mg/dL us Ying Wells DO LAB BLOOD ORDERABLES Final Re sult [facility] [address] [place] [address], [place] [phone] * (ABNORMAL) CBC auto differential (02/08/2025 12:24 PM EDT) [facility] Signature WBC 10.7 4.8 - 10.8 K/mcL LAB HEMETOLOGY METHOD 02/08/2025 1:55 PM EDT [facility] RBC 4.00 3.80 - 4.80 M/mcL LAB HEMETOLOGY METHOD 02/08/2025 1:55 PM EDT [facility] Hemoglobin 12.2 11.5 - 16.0 g/dL LAB HEMETOLOGY METHOD 02/08/2025 1:55 PM EDT [facility] Hematocrit 36.7 35.0 - 47.0 % LAB HEMETOLOGY METHOD 02/08/2025 1:55 PM EDT [facility] MCV 90.8 79.0 - 98.0 FL LAB HEMETOLOGY METHOD 02/08/2025 1:55 PM EDT [facility] MCH 30.2 27.0 - 32.0 pcg LAB HEMETOLOGY METHOD 02/08/2025 1:55 PM EDT [facility] MCHC 33.2 32.0 - 37.0 g/dL LAB HEMETOLOGY METHOD 02/08/2025 1:55 PM EDT [facility] RDW 13.5 11.0 - 15.0 % LAB HEMETOLOGY METHOD 02/08/2025 1:55 PM EDT [facility] Platelets 247 130 - 400 K/mcL LAB HEMETOLOGY METHOD 02/08/2025 1:55 PM EDT [facility] MPV 10.5 7.0 - 11.0 FL LAB HEMETOLOGY METHOD 02/08/2025 1:55 PM EDT [facility] NRBC 0.0 <1.0 % LAB HEMETOLOGY METHOD 02/08/2025 1:55 PM EDT [facility] NRBC Absolute 0.00 <0.10 K/mcL LAB HEMETOLOGY METHOD 02/08/2025 1:55 PM EDT [facility] Neutrophils Relative 77.2 % LAB HEMETOLOGY METHOD 02/08/2025 1:55 PM EDT [facility] Lymphocytes Relative 15.2 % LAB HEMETOLOGY METHOD 02/08[facility]2025 [facility] Monocytes Relative 5.9 % LAB HEMETOLOGY METHOD 02/08/2025 1:55 PM [facility] Eosinophils Relative 0.2 % LAB HEMETOLOGY METHOD 02/08/2025 1:55 PM EDT [facility] Basophils Relative 0.3 % LAB HEMETOLOGY METHOD 02/08/2025 1:55 PM EDT [facility] Immature Granulocytes Relative 1.2 % LAB HEMETOLOGY METHOD 02/08/2025 1:55 PM [facility] Neutrophils Absolute 8.27(H) 1.50 - 7.00 K/mcL LAB HEMETOLOGY METHOD 02/08/2025 1:55 PM EDT [facility] Lymphocytes Absolute 1.63 1.00 - 5.00 K/mcL LAB HEMETOLOGY METHOD 02/08/2025 1:55 PM EDT [facility] Monocytes Absolute 0.63 0.20 - 1.00 K/mcL LAB HEMETOLOGY METHOD 02/08/2025 1:55 PM EDT [facility] Eosinophils Absolute 0.02 0.00 - 0.50 K/mcL LAB HEMETOLOGY METHOD 02/08/2025 1:55 PM EDT [facility] Basophils Absolute 0.03 0.00 - 0.20 K/[facility] LAB HEMETOLOGY METHOD 02/08/2025 1:55 PM EDT [facility] Immature Granulocytes Absolute 0.13(H) 0.00 - 0.03 K/[facility] LAB HEMETOLOGY METHOD 02/08/2025 1:55 PM EDT [facility] Blood Venous blood specimen / Unknown Venipuncture / Unknown 02/08/2025 12:24 PM EDT 02/08/2025 12:24 PM EDT [facility] LAB BLOOD ORDERABLES Final Re sult Performing Organization Address [facility]/ZIP Co de Phone Number [facility] [address] [place] [address], [place] [phone] * Treponema pallidum antibody with reflex to RPR and particle agglutination (02/08/2025 12:22 PM EDT) T. Pallidum Antibodies Negative Negative LAB CHEMISTRY METHOD 02/08/2025 3:07 PM EDT [facility] Blood Venous blood specimen / Unknown Venipuncture / Unknown 02/08/2025 12:22 PM EDT 02/08/2025 12:22 PM EDT [facility] LAB BLOOD ORDERABLES Final Re sult Performing Organization Address [facility]/ZIP Co de Phone Number [facility] [address] [place] [address], [place] [phone] * External Xray Report (01/09/2025) Only the most recent of2 resultswithin the time period is included. Anatomical Region Laterality Modality Radiographic Tatiana ging Provider [facility] XR PROCEDURES Final Result * Chlamydia trachomatis and Neisseria gonorrhoeae molecular study (09/29/2024 2:10 PM EDT) [facility] Neisseria gonorrhoeae PCR Negative Negative LAB MOLECULAR DIAGNOSTICS METHOD 09/30/2024 12:05 PM EDT [facility] Chlamydia trachomatis PCR Negative Negative LAB MOLECULAR DIAGNOSTICS METHOD 09/30/2024 12:05 PM EDT [facility] Swab Vaginal structure / Unknown Non-blood Collection / Unknown 09/29/2024 2:10 PM EDT 09/29/2024 2:10 PM EDT us Leilani Ritter CNM LAB MICROBIOLOGY - GENERAL O RDERABLES Final Result Performing Organization Address City/[facility]/ZIP Co de Phone Number [facility] [address] [place] [address], [place] [phone] * Hepatitis C antibody (09/23/2024 4:09 PM EDT) [facility] Hepatitis C Antibody Negative Negative LAB CHEMISTRY METHOD 09/23/2024 8:46 PM EDT [facility] Blood Venous blood specimen / Unknown Venipuncture / Unknown 09/23/2024 4:09 PM EDT 09/23/2024 4:09 PM EDT Leilani Ritter CNM LAB BLOOD ORDERABLES Final R esult [facility] [address] [place] [address], [place] [phone] * HIV 1,2 antibody, p24 antigen with reflex to differentiation (09/23/2024 4:09 PM EDT) [facility] HIV Combo AB/AG Negative Negative LAB CHEMISTRY METHOD 09/23/2024 8:47 PM EDT [facility] Blood Venous blood specimen / Unknown Venipuncture / Unknown 09/23/2024 4:09 PM EDT 09/23/2024 4:09 PM EDT Narrative [facility] - 09/23/2024 8:47 PM EDT This assay is a 4th generation assay allowing for earlier detection of HIV infection by detecting the presence of the HIV-1 p24 antigen as well as the traditional antibodies to HIV type 1 (including group O) and type 2. Use of a 4th generation assay is the current CDC recommendation for HIV screening. us Leilani Ritter CNM LAB BLOOD ORDERABLES Final R esult [facility] [address] [place] [address], from Last 3 Months or Most Recently Relevant to Health Maintenance Insurance [facility] [employer] Care Teams Director Instructional Material Relationship Specialty Start Date End Date Palak Goldman MD [address] [place] [phone] PCP - General Pediatrics 09/09/24
[2025-04-03 10:35] LABS: TS Negative Control Passed; TS Panel A 0; TS Panel B 0; TS Positive Control Passed; TSpotTB Negative (Negative)
== END 2025-03-31 16:04 | disposition home or self-care (01) ==
LOC: HO.LAB 16:03
PROVIDERS: PCP Physician Assistant; Visit Provider Physician Assistant
DX: Z00.00 Encounter for general adult medical examination without abnormal findings (principal); Z11.1 Encounter for screening for respiratory tuberculosis
CPT/HCPCS: 36415; 80061; 82306; 83540; 84443; 85025; 86481